=== PATIENT | female | born 1930 | race Caucasian/White ===

== ENCOUNTER 2016-10-03 21:16 | Observation (INO) ==
--- NOTE | 2016-10-03 21:27 | Emergency Department Note ---
Disposition Clinical Impression: Elevated CK Hypothermia Qualifiers: Encounter type: initial encounter Qualified Code(s): T68.XXXA - Hypothermia, initial encounter Hydronephrosis Qualifiers: Hydronephrosis type: unspecified Qualified Code(s): N13.30 - Unspecified hydronephrosis Disposition: Admitted As Inpatient Condition: Good Time of Disposition: 00:16 General Adult HPI - General Chief complaint: ED General Medical Stated complaint: Hypothermia Source: patient Mode of arrival: ambulatory Limitations: no limitations Nursing Notes Reviewed: Yes Vital Signs Reviewed: Yes - History of Present Illness HPI Narrative: 86-year-old female presents by EMS after she slipped and fell into a moist robinson bed without any standing water. She states that she was throwing logs and slipped and fell down into the robinson bed. She was there for approximately 8 hours prior to extrication. She denies any head injury, loss of consciousness , anticoagulant use. She denies any back or neck pain, chest pain or shortness of breath, abdominal pain, or extremity pain or injury. He states is simply she was not strong enough and the ground was not steady enough to get her out of the robinson bed. - Related Data Home Medications Medication Instructions Recorded Confirmed Aspirin Enteric Coated [Aspirin EC] 81 mg PO QAM 01/02/15 08/25/16 Calcium Carbonate [Calcium] 500 mg PO BID 01/02/15 08/25/16 Cinnamon Bark [Cinnamon] 500 mg PO BID 01/02/15 08/25/16 Enalapril Maleate [Vasotec] 5 mg PO DAILY 01/02/15 08/25/16 Lovastatin 40 mg PO QPM 01/02/15 08/25/16 Multivitamin [Multivitamins] 1 cap PO QAM 01/02/15 08/25/16 [place]-3/Dha/Epa/Fish Oil [Cvs Fish 1 each PO BID 01/02/15 08/25/16 Oil 1,000 mg Softgel] Cetirizine HCl [Zyrtec] 10 mg PO QAM 04/05/15 08/25/16 Donepezil [Aricept] 5 mg PO HS 04/05/15 08/25/16 Previous Rx's Medication Instructions Recorded Acetaminophen [Tylenol] 500 mg PO Q6HR PRN #20 tablet 04/02/15 Allergies Allergy/AdvReac Type Severity Reaction Status Date / Time Sulfa (Sulfonamide Allergy Unknown unknown Verified 10/03/16 21:38 Antibiotics) All systems ED: reviewed and negative except as stated. Past Medical History - Past Medical History Attestation: Yes The following information was validated with the patient. Source: patient Medical history: Reports: cancer, diabetes, hyperlipidemia, hypertension Surgical history: Reports: knee replacement, other Psychiatric history: Reports: depression LEASE OUT WORKER history: Reports: no LEASE OUT WORKER history - Social History Smoking Status: Never smoker Smokeless Tobacco Status: No Alcohol use: Reports: none Drug use: Reports: none Physical Exam - Head Head exam: atraumatic, normocephalic, normal inspection - Eye Eye exam: Present: normal appearance, PERRL, EOMI - ENT ENT exam: normal exam, normal oropharynx, mucous membranes moist - Neck Neck exam: Present: normal inspection, full ROM, trachea midline - Chest Chest inspection: Present: normal inspection, symmetric chest wall rise - Respiratory Respiratory exam: Clear to auscultation bilaterally without wheezes rales or rhonchi Cardiovascular Cardiovascular exam: Present: regular rate, normal rhythm, normal heart sounds - Abdominal Exam Abdominal exam: Present: soft, Non-Tender. Absent: tenderness, distention, guarding, rebound, rigidity - Extremities Exam Extremities exam: Present: normal inspection, full ROM - Expanded Lower Extremity Exam Hip/Pelvis exam: Present: normal inspection, full ROM - Back Exam Back exam: Present: normal inspection, full ROM. Absent: tenderness, CVA tenderness (R), CVA tenderness (L) - Neurological Exam Neurological exam: Present: alert, oriented X3, CN II-XII intact - Psychiatric Psychiatric exam: Present: normal affect, normal mood - Skin Skin exam: Present: warm, dry, intact, normal color Course - Reevaluation(s) Reevaluation #1: Plan close were removed, the patient was dried, and a bear hugger and warm blankets were placed. Rectal temperature was 95.4. Vital stable. Blood sugar 187. Time: 21:27 Reevaluation #2: CT scans were negative for acute fracture. There is mild right-sided hydronephrosis of unclear etiology. Patient has no symptoms associated with this. Dr. Moe was made aware of this. He will follow the urinalysis and order any further imaging as needed. Time: 00:15 Vital Signs Temperature 95.4 F L 05/07/17 21:19 Pulse Rate 69 10/03/16 21:19 Respiratory Rate 20 10/03/16 21:19 Blood Pressure 154/54 10/03/16 21:19 O2 Sat by Pulse Oximetry 95 10/03/16 21:19 Temperature 98.2 F 10/04/16 01:38 Pulse Rate 81 10/04/16 01:38 Respiratory Rate 16 10/04/16 01:38 Blood Pressure 110/61 10/04/16 01:38 O2 Sat by Pulse Oximetry 94 10/04/16 01:38 Oxygen Delivery Oxygen Delivery Room Air Medical Decision Making - Lab Data Result diagrams: 10/04/16 04:10 10/04/16 04:10 Lab Results 10/03/16 10/03/16 10/03/16 Range/Units 21:22 21:41 21:41 WBC 16.6 H (4.3-11.1) K/mcL RBC 4.57 (3.82-4.97) M/mcL Hgb 13.3 (11.5-15.4) g/dL Hct 39.0 (35.3-44.9) % MCV 85.3 (83.0-100.0) fL MCH 29.1 (28.0-33.3) pg MCHC 34.1 (31.6-35.5) g/dL RDW 13.2 (11.5-14.5) % Plt Count 183 (140-400) K/mcL MPV 10.5 (9.4-12.4) fL Immature Gran % 0.5 (0-4) % Seg Neutrophils % 86.4 % Lymphocytes % 7.1 % Monocytes % 5.4 % Eosinophils % 0.4 % Basophils % 0.2 % Neutrophils # 14.4 H (1.6-8.9) K/mcL Lymphocytes # 1.2 (0.6-4.6) K/mcL Monocytes # 0.9 (0.0-1.3) K/mcL Eosinophils # 0.1 (0.0-0.6) K/mcL Basophils # 0.0 (0.0-0.2) K/mcL PT 13.5 H (9.4-12.1) Seconds INR 1.2 APTT 28.0 (26.0-36.0) Seconds Sodium (136-145) mEq/L Potassium (3.5-4.5) mEq/L Chloride (98-109) mEq/L Carbon Dioxide (19-29) mEq/L BUN (7-20) mg/dL Creatinine (0.57-1.11) mg/dL Est GFR ( Amer) (> 60) Est GFR (Non-Af Amer) (> 60) BUN/Creatinine Ratio (6-26) Glucose (70-99) mg/dL POC Glucose 187 H (58-89) Calculated Osmolality (280-300) Calcium (8.6-10.8) mg/dL Total Bilirubin (0.2-1.2) mg/dL Direct Bilirubin (0.0-0.5) mg/dL Indirect Bilirubin (0.0-1.2) mg/dL AST (5-34) Units/L ALT (0-55) Units/L Alkaline Phosphatase (38-126) Units/L Creatine Kinase (29-168) Units/L Troponin I (0-0.03) ng/mL Serum Total Protein (6.0-8.3) g/dL Albumin (3.5-5.0) g/dL Globulin (2.4-3.5) g/dL Albumin/Globulin Ratio (1.1-2.2) Urine Color (Yellow) Urine Clarity (Clear) Urine pH (5.0-8.0) pH Units Ur Specific [place] (1.010-1.025) Urine Protein (Neg-Trace) mg/dL Urine Glucose (UA) (Normal) mg/dL Urine Ketones (Negative) mg/dL Urine Blood (Negative) Urine Nitrite (Negative) Urine Bilirubin (Negative) Urine Urobilinogen (Normal) mg/dL Ur Leukocyte Esterase (Negative) Urine Microscopic RBC (0-3) per hpf Urine Microscopic WBC (0-3) per hpf Ur Squamous Epith Cells (None-Few) per lpf Calcium Oxalate Crystal Amorphous Sediment (Few) Urine Bacteria (None-Few) per hpf Hyaline Casts (None-Few) per lpf Ur Culture Indicated? (NO) 10/03/16 10/03/16 10/04/16 Range/Units 21:41 21:41 00:27 WBC (4.3-11.1) K/mcL RBC (3.82-4.97) M/mcL Hgb (11.5-15.4) g/dL Hct (35.3-44.9) % MCV (83.0-100.0) fL MCH (28.0-33.3) pg MCHC (31.6-35.5) g/dL RDW (11.5-14.5) % Plt Count (140-400) K/mcL MPV (9.4-12.4) fL Immature Gran % (0-4) % Seg Neutrophils % % Lymphocytes % % Monocytes % % Eosinophils % % Basophils % % Neutrophils # (1.6-8.9) K/mcL Lymphocytes # (0.6-4.6) K/mcL Monocytes # (0.0-1.3) K/mcL Eosinophils # (0.0-0.6) K/mcL Basophils # (0.0-0.2) K/mcL PT (9.4-12.1) Seconds INR APTT (26.0-36.0) Seconds Sodium 142 (136-145) mEq/L Potassium 4.5 (3.5-4.5) mEq/L Chloride 102 (98-109) mEq/L Carbon Dioxide 28 (19-29) mEq/L BUN 31 H (7-20) mg/dL Creatinine 0.80 (0.57-1.11) mg/dL Est GFR ( Amer) > 60 (> 60) Est GFR (Non-Af Amer) > 60 (> 60) BUN/Creatinine Ratio 39 H (6-26) Glucose 170 H (70-99) mg/dL POC Glucose (58-89) Calculated Osmolality 305 H (280-300) Calcium 10.4 (8.6-10.8) mg/dL Total Bilirubin 0.7 (0.2-1.2) mg/dL Direct Bilirubin 0.3 (0.0-0.5) mg/dL Indirect Bilirubin 0.4 (0.0-1.2) mg/dL AST 31 (5-34) Units/L ALT 20 (0-55) Units/L Alkaline Phosphatase 13 L (38-126) Units/L Creatine Kinase 319 H (29-168) Units/L Troponin I 0.01 (0-0.03) ng/mL Serum Total Protein 7.6 (6.0-8.3) g/dL Albumin 4.0 (3.5-5.0) g/dL Globulin 3.6 H (2.4-3.5) g/dL Albumin/Globulin Ratio 1.1 (1.1-2.2) Urine Color Yellow (Yellow) Urine Clarity Clear (Clear) Urine pH 6.5 (5.0-8.0) pH Units Ur Specific [place] 1.021 (1.010-1.025) Urine Protein Negative (Neg-Trace) mg/dL Urine Glucose (UA) Normal (Normal) mg/dL Urine Ketones Negative (Negative) mg/dL Urine Blood Negative (Negative) Urine Nitrite Negative (Negative) Urine Bilirubin Negative (Negative) Urine Urobilinogen Normal (Normal) mg/dL Ur Leukocyte Esterase Moderate H (Negative) Urine Microscopic RBC 3-5 H (0-3) per hpf Urine Microscopic WBC 5-15 H (0-3) per hpf Ur Squamous Epith Cells Many H (None-Few) per lpf Calcium Oxalate Crystal Present Amorphous Sediment Few (Few) Urine Bacteria Few (None-Few) per hpf Hyaline Casts None Seen (None-Few) per lpf Ur Culture Indicated? YES A (NO) - EKG Data EKG #1 EKG attestation: Yes I reviewed and interpreted this EKG. EKG results narrative: EKG limited by motion artifact, but shows sinus rhythm at 69. No definite ST elevation or depression. No further interpretation available due to motion artifact. EKG available. Attestation Statement - Attestation Attestation: I, Yousif Epstein, examined this patient and my medical decision-making was reviewed with the DIETETIC AIDE/PA/Advanced Practice Nurse/Resident Physician. I agree with the documented findings, disposition and treatment plan as described except to the extent set forth below. 86-year-old female brought in by EMS after found near a robinson for several hours. Patient states she was throwing logs into the robinson when she fell down the embankment. Patient was unable to skilled embankment to get out. She denies hitting her head up having loss of consciousness however she does have an abrasion to her left forehead. Patient states she was near the water for closest 6-7 hours. Bystanders found her, called EMS, helped her to the level ground. Patient had an initial rectal temperature of 95.4 degrees Fahrenheit. Patient denies chest pain, nausea, vomiting, diarrhea. Chest x-ray, CT of the head and cervical spine are negative for acute fracture or intracranial hemorrhage. Patient placed on lan hugger with improvement of temperature to 97 degrees prior to admission to the hospital. Patient has elevation of her CPK which we trended while in the hospital.
[2016-10-03 21:50] LABS: Basophils % 0.2 %; Eosinophils # 0.1 K/mcL (0.0-0.6); Eosinophils % 0.4 %; Hemoglobin 13.3 g/dL (11.5-15.4); Immature Granulocytes % 0.5 % (0-4); Lymphocytes # 1.2 K/mcL (0.6-4.6); Lymphocytes % 7.1 %; Mean Corpuscular HGB Conc 34.1 g/dL (31.6-35.5); Mean Corpuscular Hemoglobin 29.1 pg (28.0-33.3); Mean Corpuscular Volume 85.3 fL (83.0-100.0); Mean Platelet Volume 10.5 fL (9.4-12.4); Monocytes # 0.9 K/mcL (0.0-1.3); Monocytes % 5.4 %; Neutrophils # 14.4 K/mcL (1.6-8.9); Platelet Count 183 K/mcL (140-400); Red Blood Count 4.57 M/mcL (3.82-4.97); Red Cell Distribution Width 13.2 % (11.5-14.5); Segmented Neutrophils % 86.4 %
[2016-10-03 21:54] LABS: INR 1.2; Prothrombin Time 13.5 Seconds (9.4-12.1)
[2016-10-03 22:07] LABS: Alanine Aminotransferase 20 Units/L (0-55); Albumin/Globulin Ratio 1.1 (1.1-2.2); Alkaline Phosphatase 13 Units/L (38-126); Aspartate Amino Transferase 31 Units/L (5-34); BUN/Creatinine Ratio 39 (6-26); Bilirubin,Direct 0.3 mg/dL (0.0-0.5); Bilirubin,Indirect 0.4 mg/dL (0.0-1.2); Bilirubin,Total 0.7 mg/dL (0.2-1.2); Blood Urea Nitrogen 31 mg/dL (7-20); Calcium 10.4 mg/dL (8.6-10.8); Carbon Dioxide 28 mEq/L (19-29); Chloride 102 mEq/L (98-109); Creatine Kinase 319 Units/L (29-168); Globulin 3.6 g/dL (2.4-3.5); Glucose 170 mg/dL (70-99); Osmolality,Calculated 305 (280-300); Potassium 4.5 mEq/L (3.5-4.5); Sodium 142 mEq/L (136-145); Total Protein 7.6 g/dL (6.0-8.3); eGFR For African Americans > 60 (> 60); eGFR For Non-African Americans > 60 (> 60)
[2016-10-03] MEDS ORDERED: *HR* HYDROmorphone (PF) 1 MG/ML SYRINGE IVP ONE (23:25)
[2016-10-03] MEDS ORDERED: Ondansetron 4 MG/2 ML VIAL IVP STA (23:26)
[2016-10-04 00:34] LABS: Bilirubin,Urine Negative (Negative); Blood,Urine Negative (Negative); Clarity,Urine Clear (Clear); Color,Urine Yellow (Yellow); Glucose,Urine (UA) Normal (Normal); Ketones,Urine Negative (Negative); Leukocyte Esterase,Urine Moderate (Negative); Nitrite,Urine Negative (Negative); PH,Urine 6.5 pH Units (5.0-8.0); Protein,Urine Negative (Neg-Trace); Specific Gravity,Urine 1.021 (1.010-1.025); Urobilinogen,Urine Normal (Normal)
[2016-10-04 00:37] LABS: Hyaline Casts,Urine None Seen per lpf (None-Few); Squamous Epithelial Cell,Urine Many per lpf (None-Few)
[2016-10-04 00:46] LABS: Amorphous Sediment,Urine Few (Few); Bacteria,Urine Few per hpf (None-Few); Calcium Oxalate Crystals,Urine Present
[2016-10-04] MEDS ORDERED: Acetaminophen 325 MG TABLET PO PRN (00:54)
--- NOTE | 2016-10-04 01:10 | Internal Med History&Physical ---
Date of Encounter: 10/04/16 Time of Encounter: 00:10 Assessment and Plan (1) Hypothermia Current visit: Yes Status: Acute Is due to cold environment exposure. Temperature recovered to 98 after Bear Hug use in the emergency room. We will continue closely monitor temperature and other vital signs Qualifiers: Encounter type: initial encounter Qualified Code(s): T68.XXXA - Hypothermia , initial encounter (2) Diabetes mellitus Current visit: No Status: Chronic Patient is on no medication at home. Will continue diet control. Qualifiers: Diabetes mellitus type: type 2 Diabetes mellitus complication status: without complication Diabetes mellitus alf insulin use: without rat exterminator use Qualified Code(s): E11.9 - Type 2 diabetes mellitus without complications (3) Elevated CK Current visit: Yes Status: Acute Mild elevated CK. Will follow-up CK level. Pt had 2 L IV fluid in the emergency room, will Continue IV fluid at 80 mL /hr. (4) Hydronephrosis Current visit: Yes Status: Acute Incidentally found hydronephrosis in CAT scan. We will consult urology. Qualifiers: Hydronephrosis type: unspecified Qualified Code(s): N13.30 - Unspecified hydronephrosis (5) Hypertension Current visit: Yes Status: Acute BP is stable, continue home medications. Qualifiers: Hypertension type: essential hypertension Qualified Code(s): I10 - Essential (primary) hypertension (6) Leukocytosis Current visit: Yes Status: Acute Probably reactive, will follow-up CBC. Qualifiers: Leukocytosis type: unspecified Qualified Code(s): D72.829 - Elevated white blood cell count, unspecified (7) Fall Current visit: Yes Status: Acute Mechanical fall, we will consult PT and OT. Qualifiers: Encounter type: initial encounter Qualified Code(s): W19.XXXA - Unspecified fall, initial encounter (8) DVT prophylaxis Current visit: Yes Status: Acute EPCD. No anticoagulation because patient has hypothermia Internal Medicine - H&P: HPI Chief complaint: Hypothermia Admitted From: Home Plans for Post Hospital Care: Home History of present illness: Ms. Mcdonald is a 86 year old female sent to ER by EMS because she was fall in [place] and stayed there for 8 hours. Patient was found low temperature when present to ER, temperature is 95 F. patient said she went to the [place] to pick sticks, and fell in [place]. She tried to get up but the soil is too soft she cannot get. She denies head injury. She is conscious over the 8 hours. When I saw her, she is awake alert oriented 3, denies headache, muscle pain, cough, or shortness of breath. Her lumbar spine CT incidentally shows right-sided hydronephrosis. Patient is admitted for further observation and monitoring. I have discussed CODE STATUS with this patient. She is full code. Past Med Surg Social Fam HX - Past Medical History Medical history: cancer, diabetes, hyperlipidemia, hypertension Psychiatric history: depression - Past Surgical History Surgical History: knee replacement, other - Social History Smoking Status: Never smoker Smokeless Tobacco Status: No Alcohol use: none Drug use: none Internal Medicine - H&P: Meds Aspirin Enteric Coated [Aspirin EC] 81 mg PO QAM 01/02/15 [History] Calcium Carbonate [Calcium] 500 mg PO BID 01/02/15 [History] Cinnamon Bark [Cinnamon] 500 mg PO BID 01/02/15 [History] Enalapril Maleate [Vasotec] 5 mg PO DAILY 01/02/15 [History] Lovastatin 40 mg PO QPM 01/02/15 [History] Multivitamin [Multivitamins] 1 cap PO QAM 01/02/15 [History] [place]-3/Dha/Epa/Fish Oil [Cvs Fish Oil 1,000 mg Softgel] 1 each PO BID 01/02/15 [History] Acetaminophen [Tylenol] 500 mg PO Q6HR PRN #20 tablet 04/02/15 [Rx] Cetirizine HCl [Zyrtec] 10 mg PO QAM 04/05/15 [History] Donepezil [Aricept] 5 mg PO HS 04/05/15 [History] Allergies Sulfa (Sulfonamide Antibiotics) Allergy (Unknown, Verified 10/03/16 21:38) unknown All Systems PM: A 10-system review of systems was performed and is negative for pertinent findings except as documented above in the HPI. - Constitutional Constitutional: no chills, no fever(s), no night sweats - EENT Eyes: no change in vision, no discharge, no pain, no photophobia Ears: no ear discharge, no ear pain, no tinnitus Nose, mouth and throat: no dysphagia, no nasal discharge, no neck pain, no sore throat - Cardiovascular Cardiovascular ROS IM: no chest pain, no diaphoresis, no dyspnea, no lightheadedness, no palpitations, no syncope - Respiratory Respiratory: no cough, no dyspnea, no wheezing, no excessive phlegm production - Gastrointestinal Gastrointestinal: no abdominal pain, no diarrhea, no hematemesis, no hematochezia, no melena, no nausea, no vomiting - Genitourinary Genitourinary: no change in urinary stream, no dysuria, no flank pain, no hematuria - Musculoskeletal Musculoskeletal ROS IM: no numbness, no tingling - Integumentary Integumentary IM: no rash, no unusual bruising - Neurological Neurological ROS: no confusion, no convulsions, no focal weakness, no numbness, no tingling, no tremor(s) - Hematologic/Lymphatic Hematologic/Lymphatic: no easy bruising - Constitutional Vitals: Temp Pulse Resp BP Pulse Ox 97.0 F L 81 20 115/82 95 10/03/16 22:45 10/03/16 23:45 10/03/16 23:45 10/03/16 23:45 10/03/16 23:45 General appearance: Present: A&O X 3, no acute distress, answers questions appropriately - Head Head exam: Present: atraumatic, normocephalic - Eye Eye exam: Present: PERRL, conjuntiva pink, sclera anicteric Pupils: Present: PERRL - Neck Neck exam general surgery: Present: supple, trachea midline. Absent: lymphadenopathy - Respiratory Respiratory exam: Present: CTAB. Absent: accessory muscle use, rales, rhonchi, wheezes - Cardiovascular Cardiovascular exam: Present: RRR, +S1, +S2. Absent: diastolic murmur, gallop, rubs, systolic murmur - GI/Abdominal GI/Abdominal exam: Present: normal bowel sounds, soft, no peritoneal signs. Absent: distended, tenderness - Extremities Exam Extremities exam: Present: warm, radial pulses palpable and symetrical. Absent : calf tenderness, cyanotic, pedal edema - Neurological Exam Neurological exam: Present: CN II-XII intact, oriented X3, no focal deficits. Absent: pronater drift, facial droop, speech deficit - Skin Skin exam: Present: dry, intact Internal Med - H&P Results - Labs CBC & Chem 7: 10/03/16 21:41 10/03/16 21:41
[2016-10-04] MEDS: 0.9 % Sodium Chloride 1,000 ML IVC SCH ×2 (02:21→17:34)
[2016-10-04 04:40] LABS: Basophils % 0.3 %; Eosinophils % 0.1 %; Hematocrit 31.8 % (35.3-44.9); Immature Granulocytes % 0.4 % (0-4); Lymphocytes # 1.5 K/mcL (0.6-4.6); Lymphocytes % 13.3 %; Mean Corpuscular HGB Conc 33.3 g/dL (31.6-35.5); Mean Corpuscular Hemoglobin 28.4 pg (28.0-33.3); Mean Corpuscular Volume 85.3 fL (83.0-100.0); Mean Platelet Volume 10.6 fL (9.4-12.4); Neutrophils # 8.8 K/mcL (1.6-8.9); Platelet Count 141 K/mcL (140-400); Red Blood Count 3.73 M/mcL (3.82-4.97); Red Cell Distribution Width 13.4 % (11.5-14.5); Segmented Neutrophils % 76.9 %
[2016-10-04 04:42] LABS: INR 1.3; Prothrombin Time 14.5 Seconds (9.4-12.1)
[2016-10-04 04:49] LABS: Hemoglobin 10.6 g/dL (11.5-15.4)
[2016-10-04 04:50] LABS: BUN/Creatinine Ratio 35 (6-26); Blood Urea Nitrogen 23 mg/dL (7-20); Carbon Dioxide 26 mEq/L (19-29); Chloride 110 mEq/L (98-109); Glucose 111 mg/dL (70-99); Osmolality,Calculated 298 (280-300); Sodium 142 mEq/L (136-145); eGFR For African Americans > 60 (> 60); eGFR For Non-African Americans > 60 (> 60)
[2016-10-04 04:51] LABS: Calcium 8.6 mg/dL (8.6-10.8); Potassium 3.4 mEq/L (3.5-4.5)
[2016-10-04] MEDS: Aspirin Enteric Coated 81 MG Tablet PO SCH (08:27)
--- NOTE | 2016-10-04 11:05 | Urology - Consult Note ---
Date of Encounter: 10/04/16 Time of Encounter: 11:00 - Assessment and Plan (1) Hydronephrosis Current Visit: Yes Status: Acute Assessment and plan: I reviewed the noncontrast CT scan and agree there is some hydronephrosis without significant hydroureter. This appeared to be present in 4 years ago during a PET ct. Renal function is preserved and the patient has no flank pain. may be a subclinical UPJO. ok to observe and follow as an outpatient. if still having hematuria on UA may consider CT urogram. Qualifiers: Hydronephrosis type: unspecified Qualified Code(s): N13.30 - Unspecified hydronephrosis (2) Urge incontinence Current Visit: Yes Status: Acute Assessment and plan: pt has been treated with an anticholinergic medication as an outpt. will reassess when she returns. OK to make followup 4-8 weeks. Urology CN:[email or web address] Consult date: 10/04/16 Reason for consult Urology: Hydronephrosis History of present illness: inpt urology consult. patient admitted for cold exposure. ct scan (lumbar) incidentally found hydronephrosis. UA with +LE, few bacteria. culture pending. pt reports no flank pain. ct abd/pelvis complete today. Past Med Surg Social Fam HX - Past Medical History Medical history: cancer, diabetes, hyperlipidemia, hypertension Psychiatric history: depression - Past Surgical History Surgical History: knee replacement, other - Social History Smoking Status: Never smoker Smokeless Tobacco Status: No Alcohol use: none Drug use: none - Family History Mother Living Status: Hx Family Cancer: Yes Father Living Status: Medications and Allergies Aspirin Enteric Coated [Aspirin EC] 81 mg PO QAM 01/02/15 [History] Calcium Carbonate [Calcium] 500 mg PO BID 01/02/15 [History] Cinnamon Bark [Cinnamon] 500 mg PO BID 01/02/15 [History] Enalapril Maleate [Vasotec] 5 mg PO DAILY 01/02/15 [History] Lovastatin 40 mg PO QPM 01/02/15 [History] Multivitamin [Multivitamins] 1 cap PO QAM 01/02/15 [History] [place]-3/Dha/Epa/Fish Oil [Cvs Fish Oil 1,000 mg Softgel] 1 each PO BID 01/02/15 [History] Acetaminophen [Tylenol] 500 mg PO Q6HR PRN #20 tablet 04/02/15 [Rx] Donepezil [Aricept] 5 mg PO HS 04/05/15 [History] Latanoprost [Xalatan] 1 drop OP QPM 10/04/16 [History] Sertraline [Zoloft] 50 mg PO DAILY 10/04/16 [History] Timolol Maleate 0.5% [Timolol Maleate 0.5%] 1 mg OP BID 10/04/16 [History] Tolterodine Tartrate [Detrol] 2 mg PO BID 10/04/16 [History] Allergies Sulfa (Sulfonamide Antibiotics) Allergy (Unknown, Verified 10/03/16 21:38) unknown Review of Systems - EENT Nose, mouth and throat: no dizziness - Cardiovascular no chest pain - Gastrointestinal no abdominal pain - Genitourinary Genitourinary: urinary frequency, urinary incontinence, urinary urgency - Musculoskeletal back pain - Integumentary no lesions - Neurological no confusion - Psychiatric no anxiety - Hematologic/Lymphatic no easy bleeding - Allergic/Immunologic no throat swelling Exam Initial Vital Signs Temp Pulse Resp BP Pulse Ox 95.4 F L 69 20 154/54 95 10/03/16 21:19 10/03/16 21:19 10/03/16 21:19 10/03/16 21:19 10/03/16 21:19 - General physical appearance Present: well developed, no distress - Eyes Present: PERRL - ENT Present: normal nares - Neck Present: no masses - Respiratory Present: normal respiratory effort - Cardiovascular Cardiovascular exam IM: RRR - Abdomen Abdomen: Present: soft - Integumentary Present: no rash - Neurologic Present: normal coordination. Absent: disoriented, confused Urology Results - Labs 10/04/16 04:10 10/04/16 04:10 Abnormal lab results WBC 11.4 K/mcL (4.3-11.1) H 10/04/16 04:10 RBC 3.73 M/mcL (3.82-4.97) L 10/04/16 04:10 Hgb 10.6 g/dL (11.5-15.4) L D 10/04/16 04:10 Hct 31.8 % (35.3-44.9) L 10/04/16 04:10 PT 14.5 Seconds (9.4-12.1) H 10/04/16 04:10 Potassium 3.4 mEq/L (3.5-4.5) L D 10/04/16 04:10 Chloride 110 mEq/L (98-109) H 10/04/16 04:10 BUN 23 mg/dL (7-20) H 10/04/16 04:10 BUN/Creatinine Ratio 35 (6-26) H 10/04/16 04:10 Glucose 111 mg/dL (70-99) H 10/04/16 04:10 POC Glucose 187 (58-89) H 10/03/16 21:22 Alkaline Phosphatase 13 Units/L (38-126) L 10/03/16 21:41 Creatine Kinase 318 Units/L (29-168) H 10/04/16 04:10 Globulin 3.6 g/dL (2.4-3.5) H 10/03/16 21:41 Ur Leukocyte Esterase Moderate (Negative) H 10/04/16 00:27 Urine Microscopic RBC 3-5 per hpf (0-3) H 10/04/16 00:27 Urine Microscopic WBC 5-15 per hpf (0-3) H 10/04/16 00:27 Ur Squamous Epith Cells Many per lpf (None-Few) H 10/04/16 00:27 Ur Culture Indicated? YES (NO) A 10/04/16 00:27 Diabetes panel 10/04/16 Range/Units 04:10 Sodium 142 (136-145) mEq/L Potassium 3.4 L D (3.5-4.5) mEq/L Chloride 110 H (98-109) mEq/L Carbon Dioxide 26 (19-29) mEq/L BUN 23 H (7-20) mg/dL Creatinine 0.65 (0.57-1.11) mg/dL Glucose 111 H (70-99) mg/dL Calcium 8.6 D (8.6-10.8) mg/dL Calcium panel 10/04/16 Range/Units 04:10 Calcium 8.6 D (8.6-10.8) mg/dL Pituitary panel 10/04/16 Range/Units 04:10 Sodium 142 (136-145) mEq/L Potassium 3.4 L D (3.5-4.5) mEq/L Chloride 110 H (98-109) mEq/L Carbon Dioxide 26 (19-29) mEq/L BUN 23 H (7-20) mg/dL Creatinine 0.65 (0.57-1.11) mg/dL Glucose 111 H (70-99) mg/dL Calcium 8.6 D (8.6-10.8) mg/dL Adrenal panel 10/04/16 Range/Units 04:10 Sodium 142 (136-145) mEq/L Potassium 3.4 L D (3.5-4.5) mEq/L Chloride 110 H (98-109) mEq/L Carbon Dioxide 26 (19-29) mEq/L BUN 23 H (7-20) mg/dL Creatinine 0.65 (0.57-1.11) mg/dL Glucose 111 H (70-99) mg/dL Calcium 8.6 D (8.6-10.8) mg/dL All other labs normal. Consult Discharge Plan - Plan Referrals: Shante Gillette MD [Primary Care Provider] -
[2016-10-04] MEDS ORDERED: Naloxone 0.4 MG/ML INJ IVP PRN (12:18)
[2016-10-04] MEDS ORDERED: Ondansetron 4 MG/2 ML VIAL IVP PRN (12:18)
[2016-10-04] MEDS ORDERED: *HR* Morphine 2 MG/ML SYRINGE IVP PRN (12:18)
[2016-10-04] MEDS: *HR* HYDROcodone/Acet 5/325 mg TABLET PO PRN ×2 (12:34→21:41)
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
[2016-10-04] MEDS ORDERED: Levofloxacin 750 MG/150 ML 750 MG/150 ML BAG IVPB SCH (14:00)
--- NOTE | 2016-10-04 17:26 | Electrocardiograph Report ---
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
[2016-10-04] MEDS: Loratadine 10 MG TABLET PO SCH (17:34)
[2016-10-05 04:38] LABS: Basophils % 0.3 %; Eosinophils # 0.2 K/mcL (0.0-0.6); Eosinophils % 2.2 %; Hematocrit 29.9 % (35.3-44.9); Hemoglobin 10.1 g/dL (11.5-15.4); Immature Granulocytes % 0.3 % (0-4); Lymphocytes # 1.5 K/mcL (0.6-4.6); Lymphocytes % 20.1 %; Mean Corpuscular HGB Conc 33.8 g/dL (31.6-35.5); Mean Corpuscular Hemoglobin 29.3 pg (28.0-33.3); Mean Corpuscular Volume 86.7 fL (83.0-100.0); Monocytes # 0.7 K/mcL (0.0-1.3); Monocytes % 9.5 %; Neutrophils # 5.2 K/mcL (1.6-8.9); Platelet Count 117 K/mcL (140-400); Red Blood Count 3.45 M/mcL (3.82-4.97); Red Cell Distribution Width 13.9 % (11.5-14.5); Segmented Neutrophils % 67.6 %
[2016-10-05 04:51] LABS: BUN/Creatinine Ratio 21 (6-26); Blood Urea Nitrogen 14 mg/dL (7-20); Calcium 8.5 mg/dL (8.6-10.8); Carbon Dioxide 27 mEq/L (19-29); Chloride 112 mEq/L (98-109); Creatine Kinase 515 Units/L (29-168); Glucose 98 mg/dL (70-99); Magnesium 1.6 mg/dL (1.6-2.6); Osmolality,Calculated 298 (280-300); Potassium 3.3 mEq/L (3.5-4.5); Sodium 144 mEq/L (136-145); eGFR For African Americans > 60 (> 60); eGFR For Non-African Americans > 60 (> 60)
[2016-10-05] MEDS: 0.9 % Sodium Chloride 1,000 ML IVC SCH (05:57)
[2016-10-05] MEDS: *HR* HYDROcodone/Acet 5/325 mg TABLET PO PRN (06:16)
[2016-10-05] MEDS: Loratadine 10 MG TABLET PO SCH (07:59)
[2016-10-05] MEDS: Aspirin Enteric Coated 81 MG Tablet PO SCH (08:00)
--- NOTE | 2016-10-05 09:57 | Internal Med Progress Note ---
Date of Encounter: 10/05/16 Time of Encounter: 09:45 - Subjective Interval history: patient wants to go home. no chest pain. no shortness of breath. - Constitutional Vitals: Temp Pulse Resp BP Pulse Ox 97.7 F 61 15 93/57 96 10/05/16 07:48 10/05/16 07:48 10/05/16 07:48 10/05/16 07:48 10/05/16 07:48 General appearance: Present: cooperative, A&O X 3, pleasant, no acute distress, answers questions appropriately - Respiratory Respiratory exam: Present: CTAB - Cardiovascular Cardiovascular exam: Present: RRR - GI/Abdominal GI/Abdominal exam: Present: normal bowel sounds, soft. Absent: distended, tenderness - Extremities Exam Extremities exam: Absent: pedal edema - Neurological Exam Neurological exam: Present: alert, no focal deficits, strengths equal and symetr throughout. Absent: facial droop, speech deficit - Skin Skin exam: Absent: rash Internal Medicine: Result - Labs CBC & Chem 7: 10/05/16 04:13 10/05/16 04:13 Labs: Short CBC 10/05/16 Range/Units 04:13 WBC 7.7 (4.3-11.1) K/mcL Hgb 10.1 L (11.5-15.4) g/dL Hct 29.9 L (35.3-44.9) % Plt Count 117 L (140-400) K/mcL Neutrophils # 5.2 (1.6-8.9) K/mcL BMP 10/05/16 04:13 Sodium 144 Potassium 3.3 L Chloride 112 H Carbon Dioxide 27 BUN 14 Creatinine 0.67 Glucose 98 Calcium 8.5 L - ABG Interpretation ABG results: PT/INR, D-dimer PT 14.5 Seconds (9.4-12.1) H 10/04/16 04:10 - Impressions Impressions Abdomen/Pelvis CT 10/04/16 10:30 IMPRESSION: Heterogeneous consolidation within the inferior lingula, suggestive of pneumonitis. Follow-up to resolution is recommended. Trace bilateral pleural effusions. Moderate right hydronephrosis and mild left renal pelviectasis. No evidence of obstructing calculus. Nonobstructing right intrarenal calculi. Cholelithiasis. D/ / Escobar Thorpe MD / Escobar Thorpe MD Interpreting Provider: Escobar Thorpe MD Consult Discharge Plan - Plan Referrals: Shante Gillette MD [Primary Care Provider] -
[2016-10-05 11:55] VITALS: BP 123/69
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
[2016-10-05] MEDS ORDERED: Magnesium Oxide 400 MG TABLET PO ONE (17:12)
[2016-10-05] MEDS ORDERED: levoFLOXacin 500 MG TABLET PO SCH (17:15)
--- NOTE | 2016-10-05 17:23 | Physician Discharge Referral ---
Home Health/Hosp Referral Info Transfer to: Home Health Attending Provider: salena Provider in Charge Post Discharge: PCP - Respiratory Orders Smoking Cessation: Smoking cessation has been advised. For more information, call the [place] Tobacco Quit Line at 3-796-MCQU-NOW. - Diet/Nutrition Diet/Nutrition Orders: No Added Salt (FREDDY), Cardiac, No Concentrated Sweets - Activity Activity Orders: Ambulate, Walker - Services Needed Following services are medically necessary services: Physical Therapy, Occupational Therapy Other Treatments: CBC in 1 week. - Transfer Medications Prescriptions: Cefdinir [Omnicef] 300 mg PO BID #6 capsule HYDROcodone/Acet 5/325 mg [[place] 5-325 mg] 1 tab PO BID PRN #10 tablet PRN Reason: Moderate Pain Home Medications: Aspirin Enteric Coated [Aspirin EC] 81 mg PO QAM 01/02/15 [History] Calcium Carbonate [Calcium] 500 mg PO BID 01/02/15 [History] Lovastatin 40 mg PO QPM 01/02/15 [History] Multivitamin [Multivitamins] 1 cap PO QAM 01/02/15 [History] [place]-3/Dha/Epa/Fish Oil [[facility]vs Fish Oil 1,000 mg Softgel] 1 each PO BID 01/02/15 [History] Acetaminophen [Tylenol] 500 mg PO Q6HR PRN #20 tablet 04/02/15 [Rx] Donepezil [Aricept] 5 mg PO HS 04/05/15 [History] Latanoprost [Xalatan] 1 drop OP QPM 10/04/16 [History] Sertraline [Zoloft] 50 mg PO DAILY 10/04/16 [History] Timolol Maleate 0.5% 1 mg OP BID 10/04/16 [History] Tolterodine Tartrate [Detrol] 2 mg PO BID 10/04/16 [History] Cefdinir [Omnicef] 300 mg PO BID #6 capsule 10/05/16 [Rx] HYDROcodone/Acet 5/325 mg [[place] 5-325 mg] 1 tab PO BID PRN #10 tablet 10/05/16 [Rx] Allergies/Adverse Reactions: Allergies Sulfa (Sulfonamide Antibiotics) Allergy (Unknown, Verified 10/03/16 21:38) unknown Certification: Further, I certify that my clinical findings support that this patient is homebound (i.e. absences from home require considerable and taxing effort and are for medical reasons or yarsani services or infrequently or short duration when for other reasons) because: Homebound Reason: Patient requires assistance of a person or device to safely leave home, Leaving home requires considerable and taxing effort due to condition Attestation: My signature below is to certify that this patient is under my care and that I, or nurse practitioner, or a physician's financial services assistant working with me, has a face-to -face encounter with this patient.
== END 2016-10-05 18:17 | disposition home or self-care (01) ==
LOC: EMEROO 21:16 → 3BNU 21:16 → SUATTDRO 10-04 00:32 → 3BNU 10-04 01:28
PROVIDERS: ADMIT Internal Medicine; ATTEND Internal Medicine

== ENCOUNTER 2017-09-17 04:36 | Observation (INO) ==
--- NOTE | 2017-09-17 04:52 | Emergency Department Note ---
Disposition Clinical Impression: Confusion, Sacral pain Fall Qualifiers: Encounter type: initial encounter Qualified Code(s): W19.XXXA - Unspecified fall, initial encounter Contusion of head Qualifiers: Encounter type: initial encounter Contusion of head detail: scalp Qualified Code(s): S00.03XA - Contusion of scalp, initial encounter Headache Qualifiers: Headache type: unspecified Headache chronicity pattern: unspecified pattern Intractability: not intractable Qualified Code(s): R51 - Headache Elbow pain Qualifiers: Laterality: left Qualified Code(s): M25.522 - Pain in left elbow Disposition: Still a Patient Condition: Good Referrals: Shante Gillette MD [Primary Care Provider] - Forms: ED Satisfaction Letter Time of Disposition: 06:42 Head Injury HPI - General Chief complaint: ED Head Injury Stated complaint: fall Time Seen by Provider: 09/17/17 04:45 Source: patient, family, EMS Mode of arrival: EMS Limitations: altered mental status Nursing Notes Reviewed: Yes Vital Signs Reviewed: Yes - History of Present Illness HPI Narrative: Patient is an 87-year-old female with past medical history of hyperlipidemia, hypertension, dementia, diabetes. She presents today via EMS due to multiple falls. He states that the patient fell earlier yesterday, refused transport to the hospital at that time. During that fall, she hit her head. Denied any numbness, tingling, weakness, headache, loss of consciousness. She told us that she was helping her son with yardwork, went to throw sticks out of the yard and slipped and fell and hit her head. Just prior to arrival, patient had another fall. She said that she dropped the remote in front of her chair and she leaned forward, fell out of her chair and hit her head again. She currently complains of headache, left elbow pain, sacral pain. She denies any nausea, vomiting, fevers, abdominal pain, neck pain, numbness, tingling, weakness. Denies any preceding symptoms prior to falls. - Related Data Home Medications Medication Instructions Recorded Confirmed Aspirin Enteric Coated [Aspirin EC] 81 mg PO QAM 01/02/15 10/04/16 Calcium Carbonate [Calcium] 500 mg PO BID 01/02/15 10/04/16 Lovastatin 40 mg PO QPM 01/02/15 10/04/16 Multivitamin [Multivitamins] 1 cap PO QAM 01/02/15 10/04/16 [place]-3/Dha/Epa/Fish Oil [Cvs Fish 1 each PO BID 01/02/15 10/04/16 Oil 1,000 mg Softgel] Donepezil [Aricept] 5 mg PO HS 04/05/15 10/04/16 Latanoprost [Xalatan] 1 drop OP QPM 10/04/16 10/04/16 Sertraline [Zoloft] 50 mg PO DAILY 10/04/16 10/04/16 Timolol Maleate 0.5% 1 mg OP BID 10/04/16 10/04/16 Tolterodine Tartrate [Detrol] 2 mg PO BID 10/04/16 10/04/16 Previous Rx's Medication Instructions Recorded Acetaminophen [Tylenol] 500 mg PO Q6HR PRN #20 tablet 04/02/15 Cefdinir [Omnicef] 300 mg PO BID #6 capsule 10/05/16 HYDROcodone/Acet 5/325 mg [[place] 1 tab PO BID PRN #10 tablet 10/05/16 5-325 mg] Allergies/Adverse reactions: Allergies Allergy/AdvReac Type Severity Reaction Status Date / Time Sulfa (Sulfonamide Allergy Unknown unknown Verified 07/19/17 10:23 Antibiotics) All systems ED: reviewed and negative except as stated. Constitutional: Denies: fever Cardiovascular: Denies: chest pain Respiratory: Denies: dyspnea Gastrointestinal: Denies: abdominal pain, nausea, vomiting, diarrhea Musculoskeletal: Reports: arthralgia, myalgia Integumentary: Reports: other Neurological: Reports: headache. Denies: weakness, numbness, paresthesias Past Medical History - Past Medical History Attestation: Yes The following information was validated with the patient. Source: patient Medical history: Reports: cancer, diabetes, hyperlipidemia, hypertension Surgical history: Reports: knee replacement, other Psychiatric history: Reports: depression [employer]IOR IN[employer]CHIT[employer] history: Reports: no [employer]ENIOR [employer]STRU[employer]CHIT[employer] history - Social History Smoking Status: Never smoker Smokeless Tobacco Status: No Alcohol use: Reports: none Drug use: Reports: none Physical Exam - General Limitations: no limitations General appearance: alert - Head Head exam: other (right frontoparietal edema and bruising approx 3cm by 3cm) - Eye Eye exam: Present: normal appearance, PERRL, EOMI - ENT ENT exam: normal exam, normal oropharynx, mucous membranes moist - Neck Neck exam: Present: normal inspection, full ROM, trachea midline. Absent: tenderness - Chest Chest inspection: Present: normal inspection, symmetric chest wall rise - Respiratory Respiratory exam: Present: normal lung sounds bilaterally - Cardiovascular Cardiovascular exam: Present: regular rate, normal rhythm, normal heart sounds - Abdominal Exam Abdominal exam: Present: soft, Non-Tender. Absent: tenderness, distention, guarding, rebound, rigidity - Extremities Exam Extremities exam: Present: full ROM, tenderness (mild tenderness of left elbow joint but full ROM of joint and no palpable deformity). Absent: pedal edema - Neurological Exam Neurological exam: Present: alert, other (oriented to person and place but not time). Absent: motor sensory deficit - Expanded Neurological Exam Coma Scale Eye Opening: Spontaneous Coma Scale Motor Response: Obeys Commands Coma Scale Verbal Response: Confused Coma Scale Total: 14 - Psychiatric Psychiatric exam: Present: normal affect, normal mood - Skin Skin exam: Present: warm, dry, intact, normal color Course Course Narrative: Mildly hypertensive. Otherwise, the rest of the vitals were within normal limits. Physical exam shows contusion of right frontoparietal scalp, left elbow pain. Patient also complaining of sacrum pain. Will obtain CT head, cervical spine, x-ray of left elbow, x-ray lumbar spine and sacrum. We will also perform altered mental status workup physician is usually alert and oriented 3. Will obtain basic blood work, troponin, CXR, EKG. EKG showed normal sinus rhythm with no acute ST changes. 06:33 no major abnormalities on blood work. Troponin negative. No major electrolyte abnormality. Urinalysis negative. Currently awaiting imaging. WIll sign out to day team to Dr. Epstein and Dr. Zhu for further care and dispo. Vital Signs Temperature 98.2 F 09/17/17 04:38 Pulse Rate 73 09/17/17 04:38 Respiratory Rate 24 09/17/17 04:38 Blood Pressure 142/75 09/17/17 04:38 O2 Sat by Pulse Oximetry 97 09/17/17 04:38 Temperature 98.2 F 09/17/17 04:38 Pulse Rate 67 09/17/17 06:35 Respiratory Rate 18 09/17/17 06:35 Blood Pressure 125/62 09/17/17 06:35 O2 Sat by Pulse Oximetry 97 04/21/18 06:35 Oxygen Delivery Oxygen Delivery Room Air Head Injury - MDM Narrative Medical decision making narrative: Mildly hypertensive. Otherwise, the rest of the vitals were within normal limits. Physical exam shows contusion of right frontoparietal scalp, left elbow pain. Patient also complaining of sacrum pain. Will obtain CT head, cervical spine, x-ray of left elbow, x-ray lumbar spine and sacrum. We will also perform altered mental status workup physician is usually alert and oriented 3. Will obtain basic blood work, troponin, CXR, EKG. EKG showed normal sinus rhythm with no acute ST changes. 06:33 no major abnormalities on blood work. Troponin negative. No major electrolyte abnormality. Urinalysis negative. Currently awaiting imaging. WIll sign out to day team to Dr. Epstein and Dr. Zhu for further care and dispo. - Medical Records Medical records reviewed: Yes I reviewed the patient's medical records. - Lab Data Lab results reviewed: Yes I reviewed the patient's lab results. Result diagrams: 09/17/17 04:48 09/17/17 04:48 Lab Results 09/17/17 09/17/17 09/17/17 Range/Units 04:45 04:48 04:48 WBC 7.1 (4.3-11.1) K/mcL RBC 4.17 (3.82-4.97) M/mcL Hgb 11.9 (11.5-15.4) g/dL Hct 35.1 L (35.3-44.9) % MCV 84.2 (83.0-100.0) fL MCH 28.5 (28.0-33.3) pg MCHC 33.9 (31.6-35.5) g/dL RDW 12.9 (11.5-14.5) % Plt Count 221 (140-400) K/mcL MPV 10.6 (9.4-12.4) fL Immature Gran % 0.4 (0-4) % Seg Neutrophils % 65.9 % Lymphocytes % 19.3 % Monocytes % 11.5 % Eosinophils % 2.3 % Basophils % 0.6 % Neutrophils # 4.7 (1.6-8.9) K/mcL Lymphocytes # 1.4 (0.6-4.6) K/mcL Monocytes # 0.8 (0.0-1.3) K/mcL Eosinophils # 0.2 (0.0-0.6) K/mcL Basophils # 0.0 (0.0-0.2) K/mcL PT 14.3 H (9.4-12.1) Seconds INR 1.3 APTT 27.5 (26.0-36.0) Seconds Sodium (136-145) mEq/L Potassium (3.5-5.1) mEq/L Chloride (98-107) mEq/L Carbon Dioxide (23-29) mEq/L BUN (8-23) mg/dL Creatinine (0.60-1.20) mg/dL Est GFR ( Amer) (> 60) Est GFR (Non-Af Amer) (> 60) BUN/Creatinine Ratio (6-26) Glucose (70-105) mg/dL POC Glucose 125 H (70-99) mg/dL Calculated Osmolality (280-300) Calcium (8.6-10.3) mg/dL Total Bilirubin (0.3-1.0) mg/dL Direct Bilirubin (0.0-0.2) mg/dL Indirect Bilirubin (0.0-1.2) mg/dL AST (13-39) Units/L ALT (7-52) Units/L Alkaline Phosphatase (34-104) Units/L Troponin I (< 0.04) ng/mL Serum Total Protein (6.4-8.9) g/dL Albumin (3.5-5.7) g/dL Globulin (2.4-3.5) g/dL Albumin/Globulin Ratio (1.1-2.2) Urine Color (Yellow) Urine Clarity (Clear) Urine pH (5.0-8.0) pH Units Ur Specific [place] (1.010-1.025) Urine Protein (Neg-Trace) mg/dL Urine Glucose (UA) (Normal) mg/dL Urine Ketones (Negative) mg/dL Urine Blood (Negative) Urine Nitrite (Negative) Urine Bilirubin (Negative) Urine Urobilinogen (Normal) mg/dL Ur Leukocyte Esterase (Negative) Ur Culture Indicated? (NO) 09/17/17 09/17/17 Range/Units 04:48 05:40 WBC (4.3-11.1) K/mcL RBC (3.82-4.97) M/mcL Hgb (11.5-15.4) g/dL Hct (35.3-44.9) % MCV (83.0-100.0) fL MCH (28.0-33.3) pg MCHC (31.6-35.5) g/dL RDW (11.5-14.5) % Plt Count (140-400) K/mcL MPV (9.4-12.4) fL Immature Gran % (0-4) % Seg Neutrophils % % Lymphocytes % % Monocytes % % Eosinophils % % Basophils % % Neutrophils # (1.6-8.9) K/mcL Lymphocytes # (0.6-4.6) K/mcL Monocytes # (0.0-1.3) K/mcL Eosinophils # (0.0-0.6) K/mcL Basophils # (0.0-0.2) K/mcL PT (9.4-12.1) Seconds INR APTT (26.0-36.0) Seconds Sodium 140 (136-145) mEq/L Potassium 3.5 (3.5-5.1) mEq/L Chloride 103 (98-107) mEq/L Carbon Dioxide 28 (23-29) mEq/L BUN 23 (8-23) mg/dL Creatinine 0.62 (0.60-1.20) mg/dL Est GFR ( Amer) > 60 (> 60) Est GFR (Non-Af Amer) > 60 (> 60) BUN/Creatinine Ratio 37 H (6-26) Glucose 126 H (70-105) mg/dL POC Glucose (70-99) mg/dL Calculated Osmolality 295 (280-300) Calcium 10.6 H (8.6-10.3) mg/dL Total Bilirubin 0.5 (0.3-1.0) mg/dL Direct Bilirubin 0.2 (0.0-0.2) mg/dL Indirect Bilirubin 0.3 (0.0-1.2) mg/dL AST 14 (13-39) Units/L ALT 8 (7-52) Units/L Alkaline Phosphatase 10 L (34-104) Units/L Troponin I < 0.03 (< 0.04) ng/mL Serum Total Protein 6.9 (6.4-8.9) g/dL Albumin 3.7 (3.5-5.7) g/dL Globulin 3.2 (2.4-3.5) g/dL Albumin/Globulin Ratio 1.2 (1.1-2.2) Urine Color Yellow (Yellow) Urine Clarity Clear (Clear) Urine pH 5.5 (5.0-8.0) pH Units Ur Specific [place] 1.026 H (1.010-1.025) Urine Protein Negative (Neg-Trace) mg/dL Urine Glucose (UA) Normal (Normal) mg/dL Urine Ketones Negative (Negative) mg/dL Urine Blood Negative (Negative) Urine Nitrite Negative (Negative) Urine Bilirubin Negative (Negative) Urine Urobilinogen Normal (Normal) mg/dL Ur Leukocyte Esterase Negative (Negative) Ur Culture Indicated? NO (NO) - Radiology Data Radiology results reviewed: Yes I reviewed the patient's radiology results. Cervical Spine CT 09/17/17 04:45 IMPRESSION: Small right frontal scalp contusion. No underlying displaced calvarial fracture or acute intracranial abnormality No acute cervical spine fracture or subluxation. Stable chronic cerebral volume loss and white matter disease which likely reflects sequela of chronic microvascular ischemia. Unchanged cervical spondylosis. Unchanged heterogeneous thyroid gland 18 mm hypodensity the right lobe. Consideration could be given to ultrasound follow-up based patient's life expectancy and comorbidities. RECOMMENDATIONS: Managing Incidental Thyroid Nodule Detected at CT or MRI or US Managing Incidental Thyroid Nodule Detected at CT or MRI or US 1. Further evaluation by thyroid Ultrasound recommended for these incidental nodules: Patient Age 35 years or more - Nodule 1.5 cm in size or greater 2. Follow up thyroid ultrasound also recommend in these scenarios - Heterogeneous, enlarged thyroid gland. 3. NO further imaging is recommended in the following scenarios - Those patients with limited life expectancy or significant Co-morbidities. Note: These recommendations do not apply to pts. w/ increased risk for thyroid cancer or pts. with symptomatic thyroid disease. Recommendations for f/u of Incidental Thyroid Nodules (ITN) found on CT, MR, NM and Extrathyroidal US are based upon the ACR white paper and Jacobs 3-tiered system for managing ITNs: J Am Wild Radiol. 2014;12(2): 143-50 D/ / Nilesh Singh / Nilesh Singh Interpreting Provider: Nilesh Singh Elbow X-Ray 09/17/17 04:45 IMPRESSION: No acute displaced fracture or malalignment. 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 No underlying displaced calvarial fracture or acute intracranial abnormality No acute cervical spine fracture or subluxation. Stable chronic cerebral volume loss and white matter disease which likely reflects sequela of chronic microvascular ischemia. Unchanged cervical spondylosis. Unchanged heterogeneous thyroid gland 18 mm hypodensity the right lobe. Consideration could be given to ultrasound follow-up based patient's life expectancy and comorbidities. RECOMMENDATIONS: Managing Incidental Thyroid Nodule Detected at CT or MRI or US Managing Incidental Thyroid Nodule Detected at CT or MRI or US 1. Further evaluation by thyroid Ultrasound recommended for these incidental nodules: Patient Age 35 years or more - Nodule 1.5 cm in size or greater 2. Follow up thyroid ultrasound also recommend in these scenarios - Heterogeneous, enlarged thyroid gland. 3. NO further imaging is recommended in the following scenarios - Those patients with limited life expectancy or significant Co-morbidities. Note: These recommendations do not apply to pts. w/ increased risk for thyroid cancer or pts. with symptomatic thyroid disease. Recommendations for f/u of Incidental Thyroid Nodules (ITN) found on CT, MR, NM and Extrathyroidal US are based upon the ACR white paper and Jacobs 3-tiered system for managing ITNs: J Am Wild Radiol. 2015 Feb;12(2): 143-50 D/ / Nilesh Singh / Nilesh Singh Interpreting Provider: Nilesh Singh Lumbar Spine X-Ray 09/17/17 04:45 IMPRESSION: No acute fracture or subluxation. Lumbar spondylosis. D/ / Nilesh Singh / Nilesh Singh Interpreting Provider: Nilesh Singh Sacrum and Coccyx X-Ray 09/17/17 04:45 IMPRESSION: No apparent fracture or malalignment. Exam limited by osteopenia. D/ / Nilesh Singh / Nilesh Singh Interpreting Provider: Nilesh Singh Chest X-Ray 09/17/17 04:48 IMPRESSION: No acute cardiopulmonary abnormality. D/ / Nilesh Singh / Nilesh Singh Interpreting Provider: Nilesh Singh - EKG Data EKG attestation: Yes I reviewed and interpreted this EKG. EKG results narrative: 09/17/2017 05:36. Normal sinus rhythm. Rate 68. [place] 163. QRS 79. QTC 396. Left axis deviation. No acute ST elevation or depression. S.B.A.R. - S.B.A.R. Situation: Demographics, MOA Background: Presenting Complaint, Relevant PMH, Meds, & Allergies Assessment: Vital Signs, Course and respsone to treatment, Exam Concerns, Patient/Family Expectation, Pertinant Lab Results, Outstanding Labs Recommendation: Barrier(s) to disposition, Recommendation based on pending studies, treatments, or consults S.B.A.R. Report Given to: Dr. Epstein, Dr. Zhu S.B.A.RPo Repor Time: 06:42
--- NOTE | 2017-09-17 05:18 | Emergency Department Note ---
Disposition Clinical Impression: Confusion, Sacral pain Fall Qualifiers: Encounter type: initial encounter Qualified Code(s): W19.XXXA - Unspecified fall, initial encounter Contusion of head Qualifiers: Encounter type: initial encounter Contusion of head detail: scalp Qualified Code(s): S00.03XA - Contusion of scalp, initial encounter Headache Qualifiers: Headache type: unspecified Headache chronicity pattern: unspecified pattern Intractability: not intractable Qualified Code(s): R51 - Headache Elbow pain Qualifiers: Laterality: left Qualified Code(s): M25.522 - Pain in left elbow Disposition: Admitted As Inpatient Condition: Good Referrals: Shante Gillette MD [Primary Care Provider] - Forms: ED Satisfaction Letter General Adult HPI - General Chief complaint: ED Head Injury Stated complaint: fall Time Seen by Provider: 09/17/17 04:45 Source: patient, family, EMS Mode of arrival: EMS Limitations: no limitations - History of Present Illness Pain Scale: 5 - Related Data Home Medications Medication Instructions Recorded Confirmed Aspirin Enteric Coated [Aspirin EC] 81 mg PO QAM 01/02/15 10/04/16 Calcium Carbonate [Calcium] 500 mg PO BID 01/02/15 10/04/16 Lovastatin 40 mg PO QPM 01/02/15 10/04/16 Multivitamin [Multivitamins] 1 cap PO QAM 01/02/15 10/04/16 [place]-3/Dha/Epa/Fish Oil [Cvs Fish 1 each PO BID 01/02/15 10/04/16 Oil 1,000 mg Softgel] Donepezil [Aricept] 5 mg PO HS 04/05/15 10/04/16 Latanoprost [Xalatan] 1 drop OP QPM 10/04/16 10/04/16 Sertraline [Zoloft] 50 mg PO DAILY 10/04/16 10/04/16 Timolol Maleate 0.5% 1 mg OP BID 10/04/16 10/04/16 Tolterodine Tartrate [Detrol] 2 mg PO BID 10/04/16 10/04/16 Previous Rx's Medication Instructions Recorded Acetaminophen [Tylenol] 500 mg PO Q6HR PRN #20 tablet 04/02/15 Cefdinir [Omnicef] 300 mg PO BID #6 capsule 10/05/16 HYDROcodone/Acet 5/325 mg [[place] 1 tab PO BID PRN #10 tablet 10/05/16 5-325 mg] Allergies Allergy/AdvReac Type Severity Reaction Status Date / Time Sulfa (Sulfonamide Allergy Unknown unknown Verified 07/19/17 10:23 Antibiotics) Constitutional: Denies: fever Cardiovascular: Denies: chest pain Respiratory: Denies: dyspnea Gastrointestinal: Denies: abdominal pain, nausea, vomiting, diarrhea Musculoskeletal: Reports: arthralgia, myalgia Integumentary: Reports: other Neurological: Reports: headache. 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 [employer] history - Social History Smoking Status: Never smoker Smokeless Tobacco Status: No Alcohol use: Reports: none Drug use: Reports: none Physical Exam - General Limitations: no limitations General appearance: alert Course Vital Signs Temperature 98.2 F 09/17/17 04:38 Pulse Rate 73 09/17/17 04:38 Respiratory Rate 24 09/17/17 04:38 Blood Pressure 142/75 09/17/17 04:38 O2 Sat by Pulse Oximetry 97 09/17/17 04:38 Temperature 98.2 F 09/17/17 04:38 Pulse Rate 67 09/17/17 06:35 Respiratory Rate 18 09/17/17 06:35 Blood Pressure 125/62 09/17/17 06:35 O2 Sat by Pulse Oximetry 97 09/17/17 06:35 Oxygen Delivery Oxygen Delivery Room Air Medical Decision Making - Lab Data Result diagrams: 09/17/17 04:48 09/17/17 04:48 Lab Results 09/17/17 09/17/17 09/17/17 Range/Units 04:45 04:48 04:48 WBC 7.1 (4.3-11.1) K/mcL RBC 4.17 (3.82-4.97) M/mcL Hgb 11.9 (11.5-15.4) g/dL Hct 35.1 L (35.3-44.9) % MCV 84.2 (83.0-100.0) fL MCH 28.5 (28.0-33.3) pg MCHC 33.9 (31.6-35.5) g/dL RDW 12.9 (11.5-14.5) % Plt Count 221 (140-400) K/mcL MPV 10.6 (9.4-12.4) fL Immature Gran % 0.4 (0-4) % Seg Neutrophils % 65.9 % Lymphocytes % 19.3 % Monocytes % 11.5 % Eosinophils % 2.3 % Basophils % 0.6 % Neutrophils # 4.7 (1.6-8.9) K/mcL Lymphocytes # 1.4 (0.6-4.6) K/mcL Monocytes # 0.8 (0.0-1.3) K/mcL Eosinophils # 0.2 (0.0-0.6) K/mcL Basophils # 0.0 (0.0-0.2) K/mcL PT 14.3 H (9.4-12.1) Seconds INR 1.3 APTT 27.5 (26.0-36.0) Seconds Sodium (136-145) mEq/L Potassium (3.5-5.1) mEq/L Chloride (98-107) mEq/L Carbon Dioxide (23-29) mEq/L BUN (8-23) mg/dL Creatinine (0.60-1.20) mg/dL Est GFR ( Amer) (> 60) Est GFR (Non-Af Amer) (> 60) BUN/Creatinine Ratio (6-26) Glucose (70-105) mg/dL POC Glucose 125 H (70-99) mg/dL Calculated Osmolality (280-300) Calcium (8.6-10.3) mg/dL Total Bilirubin (0.3-1.0) mg/dL Direct Bilirubin (0.0-0.2) mg/dL Indirect Bilirubin (0.0-1.2) mg/dL AST (13-39) Units/L ALT (7-52) Units/L Alkaline Phosphatase (34-104) Units/L Troponin I (< 0.04) ng/mL Serum Total Protein (6.4-8.9) g/dL Albumin (3.5-5.7) g/dL Globulin (2.4-3.5) g/dL Albumin/Globulin Ratio (1.1-2.2) Urine Color (Yellow) Urine Clarity (Clear) Urine pH (5.0-8.0) pH Units Ur Specific [place] (1.010-1.025) Urine Protein (Neg-Trace) mg/dL Urine Glucose (UA) (Normal) mg/dL Urine Ketones (Negative) mg/dL Urine Blood (Negative) Urine Nitrite (Negative) Urine Bilirubin (Negative) Urine Urobilinogen (Normal) mg/dL Ur Leukocyte Esterase (Negative) Ur Culture Indicated? (NO) 09/17/17 09/17/17 Range/Units 04:48 05:40 WBC (4.3-11.1) K/mcL RBC (3.82-4.97) M/mcL Hgb (11.5-15.4) g/dL Hct (35.3-44.9) % MCV (83.0-100.0) fL MCH (28.0-33.3) pg MCHC (31.6-35.5) g/dL RDW (11.5-14.5) % Plt Count (140-400) K/mcL MPV (9.4-12.4) fL Immature Gran % (0-4) % Seg Neutrophils % % Lymphocytes % % Monocytes % % Eosinophils % % Basophils % % Neutrophils # (1.6-8.9) K/mcL Lymphocytes # (0.6-4.6) K/mcL Monocytes # (0.0-1.3) K/mcL Eosinophils # (0.0-0.6) K/mcL Basophils # (0.0-0.2) K/mcL PT (9.4-12.1) Seconds INR APTT (26.0-36.0) Seconds Sodium 140 (136-145) mEq/L Potassium 3.5 (3.5-5.1) mEq/L Chloride 103 (98-107) mEq/L Carbon Dioxide 28 (23-29) mEq/L BUN 23 (8-23) mg/dL Creatinine 0.62 (0.60-1.20) mg/dL Est GFR ( Amer) > 60 (> 60) Est GFR (Non-Af Amer) > 60 (> 60) BUN/Creatinine Ratio 37 H (6-26) Glucose 126 H (70-105) mg/dL POC Glucose (70-99) mg/dL Calculated Osmolality 295 (280-300) Calcium 10.6 H (8.6-10.3) mg/dL Total Bilirubin 0.5 (0.3-1.0) mg/dL Direct Bilirubin 0.2 (0.0-0.2) mg/dL Indirect Bilirubin 0.3 (0.0-1.2) mg/dL AST 14 (13-39) Units/L ALT 8 (7-52) Units/L Alkaline Phosphatase 10 L (34-104) Units/L Troponin I < 0.03 (< 0.04) ng/mL Serum Total Protein 6.9 (6.4-8.9) g/dL Albumin 3.7 (3.5-5.7) g/dL Globulin 3.2 (2.4-3.5) g/dL Albumin/Globulin Ratio 1.2 (1.1-2.2) Urine Color Yellow (Yellow) Urine Clarity Clear (Clear) Urine pH 5.5 (5.0-8.0) pH Units Ur Specific [place] 1.026 H (1.010-1.025) Urine Protein Negative (Neg-Trace) mg/dL Urine Glucose (UA) Normal (Normal) mg/dL Urine Ketones Negative (Negative) mg/dL Urine Blood Negative (Negative) Urine Nitrite Negative (Negative) Urine Bilirubin Negative (Negative) Urine Urobilinogen Normal (Normal) mg/dL Ur Leukocyte Esterase Negative (Negative) Ur Culture Indicated? NO (NO) Attestation Statement - Attestation Attestation: I examined this patient and my medical decision-making was reviewed with the Resident Physician. I agree with the documented findings, disposition and treatment plan as described except to the extent set forth below. Patient to the ED after falls. She has had 2 today. She fell out of a chair of the chair and fell forward and struck her head. Family at bedside states she is more confused than baseline. Patient thinks this year 216. On examination she has a hematoma to the frontal area. Awake alert pleasantly confused with a GCS of 14. Moving all extremities. Plan. Imaging of the injured areas and altered mental status workup. Patient resides home alone. Patient is not safe for discharge to home alone in her current mental state. Workup unremarkable. Admitting.
[2017-09-17 05:53] LABS: Bilirubin,Urine Negative (Negative); Blood,Urine Negative (Negative); Clarity,Urine Clear (Clear); Color,Urine Yellow (Yellow); Glucose,Urine (UA) Normal (Normal); Ketones,Urine Negative (Negative); Leukocyte Esterase,Urine Negative (Negative); Nitrite,Urine Negative (Negative); PH,Urine 5.5 pH Units (5.0-8.0); Protein,Urine Negative (Neg-Trace); Specific Gravity,Urine 1.026 (1.010-1.025); Urobilinogen,Urine Normal (Normal)
[2017-09-17 06:08] LABS: INR 1.3; Prothrombin Time 14.3 Seconds (9.4-12.1)
[2017-09-17 06:22] LABS: Troponin I < 0.03 ng/mL (< 0.04)
[2017-09-17 06:23] LABS: Alanine Aminotransferase 8 Units/L (7-52); Albumin 3.7 g/dL (3.5-5.7); Albumin/Globulin Ratio 1.2 (1.1-2.2); Alkaline Phosphatase 10 Units/L (34-104); Aspartate Amino Transferase 14 Units/L (13-39); BUN/Creatinine Ratio 37 (6-26); Bilirubin,Direct 0.2 mg/dL (0.0-0.2); Bilirubin,Indirect 0.3 mg/dL (0.0-1.2); Bilirubin,Total 0.5 mg/dL (0.3-1.0); Blood Urea Nitrogen 23 mg/dL (8-23); Calcium 10.6 mg/dL (8.6-10.3); Carbon Dioxide 28 mEq/L (23-29); Chloride 103 mEq/L (98-107); Globulin 3.2 g/dL (2.4-3.5); Glucose 126 mg/dL (70-105); Osmolality,Calculated 295 (280-300); Potassium 3.5 mEq/L (3.5-5.1); Sodium 140 mEq/L (136-145); Total Protein 6.9 g/dL (6.4-8.9); eGFR For African Americans > 60 (> 60); eGFR For Non-African Americans > 60 (> 60)
[2017-09-17 06:24] LABS: Activated Partial Thrombo Time 27.5 Seconds (26.0-36.0)
[2017-09-17 06:28] LABS: Basophils % 0.6 %; Eosinophils # 0.2 K/mcL (0.0-0.6); Eosinophils % 2.3 %; Hematocrit 35.1 % (35.3-44.9); Hemoglobin 11.9 g/dL (11.5-15.4); Immature Granulocytes % 0.4 % (0-4); Lymphocytes # 1.4 K/mcL (0.6-4.6); Lymphocytes % 19.3 %; Mean Corpuscular HGB Conc 33.9 g/dL (31.6-35.5); Mean Corpuscular Hemoglobin 28.5 pg (28.0-33.3); Mean Corpuscular Volume 84.2 fL (83.0-100.0); Mean Platelet Volume 10.6 fL (9.4-12.4); Monocytes # 0.8 K/mcL (0.0-1.3); Monocytes % 11.5 %; Neutrophils # 4.7 K/mcL (1.6-8.9); Platelet Count 221 K/mcL (140-400); Red Blood Count 4.17 M/mcL (3.82-4.97); Red Cell Distribution Width 12.9 % (11.5-14.5); Segmented Neutrophils % 65.9 %
--- NOTE | 2017-09-17 07:15 | Emergency Department Note ---
START Narrative - START START: I examined this patient and my medical decision-making was reviewed with the Resident Physician. I agree with the documented findings, disposition and treatment plan as described except to the extent set forth below. accepted signout from Dr. Liu and the plan is to admit to medicine for frequent falls and deconditioning. We are waiting on hospitlist to admit.
--- NOTE | 2017-09-17 07:23 | Emergency Department Note ---
Disposition Clinical Impression: Confusion, Sacral pain Fall Qualifiers: Encounter type: initial encounter Qualified Code(s): W19.XXXA - Unspecified fall, initial encounter Contusion of head Qualifiers: Encounter type: initial encounter Contusion of head detail: scalp Qualified Code(s): S00.03XA - Contusion of scalp, initial encounter Headache Qualifiers: Headache type: unspecified Headache chronicity pattern: unspecified pattern Intractability: not intractable Qualified Code(s): R51 - Headache Elbow pain Qualifiers: Laterality: left Qualified Code(s): M25.522 - Pain in left elbow Disposition: Admitted As Inpatient Condition: Good Referrals: Shante Gillette MD [Primary Care Provider] - Forms: ED Satisfaction Letter Time of Disposition: 07:22 General Adult HPI - General Chief complaint: ED Head Injury Stated complaint: fall Time Seen by Provider: 09/17/17 04:45 Source: patient, family, EMS Mode of arrival: EMS Limitations: no limitations - History of Present Illness Pain Scale: 5 - Related Data Home Medications Medication Instructions Recorded Confirmed Aspirin Enteric Coated [Aspirin EC] 81 mg PO QAM 01/02/15 10/04/16 Calcium Carbonate [Calcium] 500 mg PO BID 01/02/15 10/04/16 Lovastatin 40 mg PO QPM 01/02/15 10/04/16 Multivitamin [Multivitamins] 1 cap PO QAM 01/02/15 10/04/16 [place]-3/Dha/Epa/Fish Oil [Cvs Fish 1 each PO BID 01/02/15 10/04/16 Oil 1,000 mg Softgel] Donepezil [Aricept] 5 mg PO HS 04/05/15 10/04/16 Latanoprost [Xalatan] 1 drop OP QPM 10/04/16 10/04/16 Sertraline [Zoloft] 50 mg PO DAILY 10/04/16 10/04/16 Timolol Maleate 0.5% 1 mg OP BID 10/04/16 10/04/16 Tolterodine Tartrate [Detrol] 2 mg PO BID 10/04/16 10/04/16 Previous Rx's Medication Instructions Recorded Acetaminophen [Tylenol] 500 mg PO Q6HR PRN #20 tablet 04/02/15 Cefdinir [Omnicef] 300 mg PO BID #6 capsule 10/05/16 HYDROcodone/Acet 5/325 mg [[place] 1 tab PO BID PRN #10 tablet 10/05/16 5-325 mg] Allergies Allergy/AdvReac Type Severity Reaction Status Date / Time Sulfa (Sulfonamide Allergy Unknown unknown Verified 07/19/17 10:23 Antibiotics) Constitutional: Denies: fever Cardiovascular: Denies: chest pain Respiratory: Denies: dyspnea Gastrointestinal: Denies: abdominal pain, nausea, vomiting, diarrhea Musculoskeletal: Reports: arthralgia, myalgia Integumentary: Reports: other Neurological: Reports: headache. Denies: weakness, numbness, paresthesias Past Medical History - Past Medical History Medical history: Reports: cancer, diabetes, hyperlipidemia, hypertension Surgical history: Reports: knee replacement, other Psychiatric history: Reports: depression TOPOGRAPHICAL ENGINEER history: Reports: no TOPOGRAPHICAL ENGINEER history - Social History Smoking Status: Never smoker Smokeless Tobacco Status: No Alcohol use: Reports: none Drug use: Reports: none Physical Exam - General Limitations: no limitations General appearance: alert Course Course Narrative: Patient was signed out to me by the police shift commander. Patient had a complete workup that was pending admission to the hospital. We did admit her to the hospital to Dr. Lugo. He accepted the patient stable condition. The patient was pleasantly demented while the emergency department and in no distress. Vital Signs Temperature 98.2 F 09/17/17 04:38 Pulse Rate 73 09/17/17 04:38 Respiratory Rate 24 09/17/17 04:38 Blood Pressure 142/75 09/17/17 04:38 O2 Sat by Pulse Oximetry 97 09/17/17 04:38 Temperature 98.2 F 09/17/17 04:38 Pulse Rate 67 09/17/17 07:12 Respiratory Rate 16 09/17/17 07:12 Blood Pressure 99/81 09/17/17 07:12 O2 Sat by Pulse Oximetry 96 09/17/17 07:12 Oxygen Delivery Oxygen Delivery Room Air Medical Decision Making - Lab Data Result diagrams: 09/17/17 04:48 09/17/17 04:48 Lab Results 09/17/17 09/17/17 09/17/17 Range/Units 04:45 04:48 04:48 WBC 7.1 (4.3-11.1) K/mcL RBC 4.17 (3.82-4.97) M/mcL Hgb 11.9 (11.5-15.4) g/dL Hct 35.1 L (35.3-44.9) % MCV 84.2 (83.0-100.0) fL MCH 28.5 (28.0-33.3) pg MCHC 33.9 (31.6-35.5) g/dL RDW 12.9 (11.5-14.5) % Plt Count 221 (140-400) K/mcL MPV 10.6 (9.4-12.4) fL Immature Gran % 0.4 (0-4) % Seg Neutrophils % 65.9 % Lymphocytes % 19.3 % Monocytes % 11.5 % Eosinophils % 2.3 % Basophils % 0.6 % Neutrophils # 4.7 (1.6-8.9) K/mcL Lymphocytes # 1.4 (0.6-4.6) K/mcL Monocytes # 0.8 (0.0-1.3) K/mcL Eosinophils # 0.2 (0.0-0.6) K/mcL Basophils # 0.0 (0.0-0.2) K/mcL PT 14.3 H (9.4-12.1) Seconds INR 1.3 APTT 27.5 (26.0-36.0) Seconds Sodium (136-145) mEq/L Potassium (3.5-5.1) mEq/L Chloride (98-107) mEq/L Carbon Dioxide (23-29) mEq/L BUN (8-23) mg/dL Creatinine (0.60-1.20) mg/dL Est GFR ( Amer) (> 60) Est GFR (Non-Af Amer) (> 60) BUN/Creatinine Ratio (6-26) Glucose (70-105) mg/dL POC Glucose 125 H (70-99) mg/dL Calculated Osmolality (280-300) Calcium (8.6-10.3) mg/dL Total Bilirubin (0.3-1.0) mg/dL Direct Bilirubin (0.0-0.2) mg/dL Indirect Bilirubin (0.0-1.2) mg/dL AST (13-39) Units/L ALT (7-52) Units/L Alkaline Phosphatase (34-104) Units/L Troponin I (< 0.04) ng/mL Serum Total Protein (6.4-8.9) g/dL Albumin (3.5-5.7) g/dL Globulin (2.4-3.5) g/dL Albumin/Globulin Ratio (1.1-2.2) Urine Color (Yellow) Urine Clarity (Clear) Urine pH (5.0-8.0) pH Units Ur Specific Wise (1.010-1.025) Urine Protein (Neg-Trace) mg/dL Urine Glucose (UA) (Normal) mg/dL Urine Ketones (Negative) mg/dL Urine Blood (Negative) Urine Nitrite (Negative) Urine Bilirubin (Negative) Urine Urobilinogen (Normal) mg/dL Ur Leukocyte Esterase (Negative) Ur Culture Indicated? (NO) 09/17/17 09/17/17 Range/Units 04:48 05:40 WBC (4.3-11.1) K/mcL RBC (3.82-4.97) M/mcL Hgb (11.5-15.4) g/dL Hct (35.3-44.9) % MCV (83.0-100.0) fL MCH (28.0-33.3) pg MCHC (31.6-35.5) g/dL RDW (11.5-14.5) % Plt Count (140-400) K/mcL MPV (9.4-12.4) fL Immature Gran % (0-4) % Seg Neutrophils % % Lymphocytes % % Monocytes % % Eosinophils % % Basophils % % Neutrophils # (1.6-8.9) K/mcL Lymphocytes # (0.6-4.6) K/mcL Monocytes # (0.0-1.3) K/mcL Eosinophils # (0.0-0.6) K/mcL Basophils # (0.0-0.2) K/mcL PT (9.4-12.1) Seconds INR APTT (26.0-36.0) Seconds Sodium 140 (136-145) mEq/L Potassium 3.5 (3.5-5.1) mEq/L Chloride 103 (98-107) mEq/L Carbon Dioxide 28 (23-29) mEq/L BUN 23 (8-23) mg/dL Creatinine 0.62 (0.60-1.20) mg/dL Est GFR ( Amer) > 60 (> 60) Est GFR (Non-Af Amer) > 60 (> 60) BUN/Creatinine Ratio 37 H (6-26) Glucose 126 H (70-105) mg/dL POC Glucose (70-99) mg/dL Calculated Osmolality 295 (280-300) Calcium 10.6 H (8.6-10.3) mg/dL Total Bilirubin 0.5 (0.3-1.0) mg/dL Direct Bilirubin 0.2 (0.0-0.2) mg/dL Indirect Bilirubin 0.3 (0.0-1.2) mg/dL AST 14 (13-39) Units/L ALT 8 (7-52) Units/L Alkaline Phosphatase 10 L (34-104) Units/L Troponin I < 0.03 (< 0.04) ng/mL Serum Total Protein 6.9 (6.4-8.9) g/dL Albumin 3.7 (3.5-5.7) g/dL Globulin 3.2 (2.4-3.5) g/dL Albumin/Globulin Ratio 1.2 (1.1-2.2) Urine Color Yellow (Yellow) Urine Clarity Clear (Clear) Urine pH 5.5 (5.0-8.0) pH Units Ur Specific Wise 1.026 H (1.010-1.025) Urine Protein Negative (Neg-Trace) mg/dL Urine Glucose (UA) Normal (Normal) mg/dL Urine Ketones Negative (Negative) mg/dL Urine Blood Negative (Negative) Urine Nitrite Negative (Negative) Urine Bilirubin Negative (Negative) Urine Urobilinogen Normal (Normal) mg/dL Ur Leukocyte Esterase Negative (Negative) Ur Culture Indicated? NO (NO)
[2017-09-17] MEDS ORDERED: Naloxone 0.4 MG/ML INJ IVP PRN (11:32)
[2017-09-17] MEDS ORDERED: D5% in Water 1,000 ML IVC PRN (11:51)
[2017-09-17] MEDS ORDERED: *HR* Dextrose 50 % in Water (Syg) 50 ML SYRINGE IVP PRN (11:51)
[2017-09-17] MEDS ORDERED: Dextrose Gel 15 GM/37.5 ML TUBE PO PRN ×2 (11:51)
[2017-09-17 12:21] LABS: Vitamin B12 482 pg/mL (250-1100)
[2017-09-17 12:22] LABS: Folate > 22.3 ng/mL (3.0-16.0)
[2017-09-17] MEDS: Insulin LISPRO 300 UNITS/3 ML VIAL SQ SCH ×2 (12:23→16:54)
--- NOTE | 2017-09-17 15:41 | Internal Med History&Physical ---
Date of Encounter: 09/17/17 Time of Encounter: 09:07 Internal Medicine - H&P: HPI Chief complaint: Confusion, Fall Admitted From: Emergency Dept Plans for Post Hospital Care: Home History of present illness: Ms. Mcdonald is a 87 year old white female with PMH of HTN, HLD, diet-controlled Type II DM, and dementia who presented to ED via EMS for confusion and multiple recent falls. She had a ground level fall yesterday during which she hit her head. She was out in the yard working with her son when she slipped and fell. She denies any LOC. She did not want to come to ED yesterday. Prior to arrival to ED today, she had another ground level fall. She tried to bend over from a seated position to pick something up and she fell out of her chair and hit her head again. She denies LOC again. During my interview, her only complaint presently is pain on her head. She was found to have a contusion/ hematoma of her right head. All other workup in the ED was unremarkable. I was asked to admit patient for confusion increased from baseline and head contusion s/p falls. Past Med Surg Social Fam HX - Past Medical History Attestation: Yes The following information was validated with the patient. Source: patient Medical history: cancer, diabetes, hyperlipidemia, hypertension Psychiatric history: depression - Past Surgical History Surgical History: knee replacement, other - Social History Smoking Status: Never smoker Smokeless Tobacco Status: No Alcohol use: none Drug use: none - Family History Mother Living Status: Hx Family Cancer: Yes Father Living Status: Internal Medicine - H&P: Meds Aspirin Enteric Coated [Aspirin EC] 81 mg PO QAM 01/02/15 [History] Calcium Carbonate [Calcium] 500 mg PO BID 01/02/15 [History] Lovastatin 40 mg PO QPM 01/02/15 [History] Multivitamin [Multivitamins] 1 cap PO QAM 01/02/15 [History] [place]-3/Dha/Epa/Fish Oil [Cvs Fish Oil 1,000 mg Softgel] 1 cap PO BID 01/02/15 [ History] Acetaminophen [Tylenol] 500 mg PO Q6HR PRN #20 tablet 04/02/15 [Rx] Timolol Maleate 0.5% 1 drop RIGHT EYE BID 10/04/16 [History] Tolterodine Tartrate [Detrol] 2 mg PO BID 10/04/16 [History] Oxybutynin Chloride [Ditropan Xl] 10 mg PO DAILY 09/17/17 [History] 3 Allergy/AdvReac Type Severity Reaction Status Date / Time Sulfa (Sulfonamide Allergy Unknown unknown Verified 07/19/17 10:23 Antibiotics) - Constitutional Constitutional: falls, no anorexia, no chills, no fatigue, no fever(s), no lethargy, no malaise, no weakness, no weight gain, no weight loss - EENT Eyes: no blurry vision, no change in vision, no diplopia, no loss of vision, no pain, no other visual disturbances Ears: no decreased hearing, no ear pain Nose, mouth and throat: no dry mouth, no dysphagia, no facial pain, no mouth lesions, no mouth pain, no nasal congestion, no nasal discharge, no sinus pain, no sore throat - Cardiovascular Cardiovascular ROS IM: no chest pain, no diaphoresis, no dyspnea, no dyspnea on exertion, no edema, no palpitations, no syncope - Respiratory Respiratory: no cough, no dyspnea, no hemoptysis, no dyspnea on exertion, no wheezing, no chest congestion - Gastrointestinal Gastrointestinal: no abdominal pain, no change in bowel habits, no constipation , no diarrhea, no dysphagia, no heartburn, no hematemesis, no hematochezia, no melena, no nausea, no vomiting - Genitourinary Genitourinary: no difficulty urinating, no dysuria, no hematuria, no urinary frequency - Musculoskeletal Musculoskeletal ROS IM: no arthralgias, no joint swelling, no muscle weakness, no myalgias - Integumentary Integumentary IM: no erythema, no rash, no skin ulcer, no jaundice - Neurological Neurological ROS: abnormal gait, no behavioral changes, no confusion, no dizziness, no focal weakness, no headache(s), no vertigo, no weakness - Psychiatric Psychiatric: confusion, no anxiety, no behavioral changes, no depression - Endocrine Endocrine IM: no cold intolerance, no fatigue, no heat intolerance, no polydipsia, no polyphagia, no polyuria - Constitutional Vitals: Temp Pulse Resp BP Pulse Ox 97.8 F 61 14 109/60 98 09/17/17 15:11 09/17/17 15:11 09/17/17 15:11 09/17/17 15:11 09/17/17 15:11 General appearance: Present: cooperative, A&O X 2, pleasant, no acute distress, answers questions appropriately - Head Head exam: Present: normocephalic Additional comments: Approximately 3 cm diameter tender area of bruising and edema on right forehead - Eye Eye exam: Present: EOMI, PERRL. Absent: conjunctival injection, nystagmus, scleral icterus - ENT ENT exam: Present: mucous membranes moist, normal external ear exam, normal oropharynx - Neck Neck exam general surgery: Present: supple, trachea midline. Absent: lymphadenopathy, tenderness, thyromegaly - Respiratory Respiratory exam: Present: CTAB. Absent: accessory muscle use, rales, rhonchi, wheezes Additional comments: Normal WOB - Cardiovascular Cardiovascular exam: Present: RRR, +S1, +S2. Absent: diastolic murmur, gallop, rubs, systolic murmur Additional comments: No BLE edema - GI/Abdominal GI/Abdominal exam: Present: normal bowel sounds, soft. Absent: distended, hepatomegaly, mass, splenomegaly, tenderness - Neurological Exam Neurological exam: Present: abnormal gait, alert, CN II-XII intact, no focal deficits, strengths equal and symetr throughout. Absent: motor sensory deficit , facial droop, speech deficit Additional comments: Unsteady gait - Psychiatric Psychiatric exam: Present: normal affect, normal mood. Absent: anxious, depressed - Skin Skin exam: Present: dry, intact, warm. Absent: cyanosis, rash Internal Med - H&P Results - Labs CBC & Chem 7: 09/18/17 05:01 09/18/17 05:01 - VTE Reasons for not Prescribing Prophylaxis: Medical contraindication (Head contusion/hematoma) Documentation of Mechanical Device: Intermittent pneumatic compression device - Assessment and plan (1) Confusion Current Visit: Yes Status: Acute Assessment and plan: History of dementia, but some progressive worsening recently. A&O x 2 and converse appropriately per my examination. CT head unremarkable. CMP, CBC, UA , EKG, and CXR unremarkable. Will add TSH, Vitamin B12, folate, and magnesium to labwork. Will consult PT/OT as per below as confusion may be contributing to safety issues at home. Continue home dementia medications. Avoid opioids and sedating medications. Will monitor closely. (2) Fall Current Visit: Yes Status: Acute Assessment and plan: Patient ambulatory but with some unsteadiness of gait. Treat head contusion/ hematoma as per below. Obtain CK. PT/OT consulted as per above. SW consulted for possible placement needs. Qualifiers: Encounter type: initial encounter Qualified Code(s): W19.XXXA - Unspecified fall, initial encounter (3) Unsteady gait Current Visit: Yes Status: Acute Assessment and plan: PT/OT/SW consulted as per above. (4) Contusion of head Current Visit: Yes Status: Acute Assessment and plan: Small hematoma. Monitor closely. Pain control with Tylenol; avoid opioids due to confusion workup as per above. Recheck CBC in AM. Qualifiers: Encounter type: initial encounter Contusion of head detail: other part of head Qualified Code(s): S00.83XA - Contusion of other part of head, initial encounter (5) Hypertension Current Visit: Yes Status: Chronic Assessment and plan: No home pharmacotherapy. Continue to monitor. Qualifiers: Hypertension type: essential hypertension Qualified Code(s): I10 - Essential (primary) hypertension (6) Diabetes mellitus Current Visit: Yes Status: Chronic Assessment and plan: Diet-controlled. Start accuchecks and low dose SSI QID AC/HS; discontinue if normal readings. Qualifiers: Diabetes mellitus type: type 2 Diabetes mellitus terminal operations manager insulin use: without assisted use Diabetes mellitus complication status: without complication Qualified Code(s): E11.9 - Type 2 diabetes mellitus without complications (7) Dementia Current Visit: Yes Status: Chronic Qualifiers: Dementia type: unspecified type Dementia behavioral disturbance: without behavioral disturbance Qualified Code(s): F03.90 - Unspecified dementia without behavioral disturbance (8) DVT prophylaxis Current Visit: Yes Status: Acute Assessment and plan: Will hold off on anticoagulation due to head contusion/hematoma. Start SCDs. - Time Spent With Patient Total time spent is greater than 50% in coordination of care (as documented) at patient's floor/unit and/or counseling patient: 25 - 35 minutes
[2017-09-17] MEDS ORDERED: NON-FORMULARY MEDICATION 1 EACH EACH (Oxybutynin Chloride [Ditropan Xl] 10 MG) PO SCH (15:45)
[2017-09-17] MEDS: Aspirin Enteric Coated 81 MG Tablet PO SCH (17:00)
[2017-09-17] MEDS: Multivit/Ca/Min/Fe/FA 1 TAB TABLET PO SCH (17:00)
[2017-09-17] MEDS: Acetaminophen 325 MG TABLET PO PRN (17:56)
[2017-09-17 19:50] LABS: Amphetamine Screen,Urine Negative ng/mL (Cutoff=1000); Barbiturate Screen,Urine Negative ng/mL (Cutoff=200); Benzodiazepines Screen,Urine Negative ng/mL (Cutoff=200); Cannabinoid Screen,Urine Negative ng/mL (Cutoff = 50); Cocaine Screen,Urine Negative ng/mL (Cutoff= 300); Opiate Screen,Urine Negative ng/mL (Cutoff=300); Phencyclidine Screen,Urine Negative ng/mL (Cutoff=25)
[2017-09-17] MEDS: Patient Taking Own Medication 1 EACH PO SCH (20:26)
[2017-09-17] MEDS ORDERED: Insulin LISPRO 300 UNITS/3 ML VIAL SQ SCH (21:00)
[2017-09-18] MEDS: Acetaminophen 325 MG TABLET PO PRN (01:43)
[2017-09-18 05:38] LABS: Basophils % 0.5 %; Eosinophils # 0.2 K/mcL (0.0-0.6); Eosinophils % 2.9 %; Hematocrit 31.8 % (35.3-44.9); Hemoglobin 10.8 g/dL (11.5-15.4); Immature Granulocytes % 0.3 % (0-4); Lymphocytes # 1.1 K/mcL (0.6-4.6); Lymphocytes % 17.8 %; Mean Corpuscular Hemoglobin 28.3 pg (28.0-33.3); Mean Corpuscular Volume 83.5 fL (83.0-100.0); Mean Platelet Volume 10.6 fL (9.4-12.4); Monocytes # 0.8 K/mcL (0.0-1.3); Monocytes % 12.5 %; Neutrophils # 4.1 K/mcL (1.6-8.9); Platelet Count 206 K/mcL (140-400); Red Blood Count 3.81 M/mcL (3.82-4.97); Red Cell Distribution Width 12.6 % (11.5-14.5)
[2017-09-18 05:57] LABS: BUN/Creatinine Ratio 25 (6-26); Blood Urea Nitrogen 15 mg/dL (8-23); Calcium 10.3 mg/dL (8.6-10.3); Carbon Dioxide 32 mEq/L (23-29); Chloride 105 mEq/L (98-107); Glucose 103 mg/dL (70-105); Osmolality,Calculated 293 (280-300); Potassium 3.3 mEq/L (3.5-5.1); Sodium 141 mEq/L (136-145); eGFR For African Americans > 60 (> 60); eGFR For Non-African Americans > 60 (> 60)
[2017-09-18] MEDS: Insulin LISPRO 300 UNITS/3 ML VIAL SQ SCH ×2 (07:29→11:56)
[2017-09-18] MEDS: Multivit/Ca/Min/Fe/FA 1 TAB TABLET PO SCH (08:23)
[2017-09-18] MEDS: Aspirin Enteric Coated 81 MG Tablet PO SCH (08:23)
[2017-09-18] MEDS: Patient Taking Own Medication 1 EACH PO SCH (08:23)
[2017-09-18 11:25] VITALS: BP 118/65
--- NOTE | 2017-09-18 11:55 | Discharge Summary ---
- NOTES TO OUTPATIENT PROVIDER Notes to Outpatient Provider: Follow-up with primary care physician this week. Son is wondering about information to obtain a hospital bed. Also PT OT recommended home health with physical therapy and a home safety evaluation. Defer this to the primary care services they have her currently going to outpatient PT / OT and the son believes the patient is not technically homebound. Orders not resulted at time of discharge: Pending orders 09/19/17 04:00 BMP [Basic Metabolic Panel] AM 0400 Complete Blood Count [HEME] AM 0400 Date of Encounter: 09/18/17 Time of Encounter: 11:53 - Discharge Diagnosis (1) Diabetes mellitus Priority: Primary Status: Chronic Qualifiers: Diabetes mellitus type: type 2 Diabetes mellitus fci insulin use: without fci use Diabetes mellitus complication status: without complication Qualified Code(s): E11.9 - Type 2 diabetes mellitus without complications (2) Hypertension Priority: Primary Status: Chronic Comments: Blood pressure and heart rate are stable Qualifiers: Hypertension type: essential hypertension Qualified Code(s): I10 - Essential (primary) hypertension (3) Fall Priority: Primary Status: Acute Comments: PT OT evaluated the patient and recommended home health services. Patient is not homebound. She is currently going to outpatient physical therapy. Discussion with son and will continue that plan and follow-up with her primary care physician this week the patient lives alone but has a life alert button and the family checks on her frequently Qualifiers: Encounter type: initial encounter Qualified Code(s): W19.XXXA - Unspecified fall, initial encounter (4) Contusion of head Priority: Primary Status: Acute Comments: No acute cervical spine fracture or subluxation and small right frontal scalp contusion with no underlying displaced calvarial fracture or acute intercranial abnormality Qualifiers: Encounter type: initial encounter Contusion of head detail: other part of head Qualified Code(s): S00.83XA - Contusion of other part of head, initial encounter (5) Confusion Priority: Primary Status: Resolved (6) Unsteady gait Priority: Primary Status: Acute Comments: Continue PT OT Scuffs with patient's son that she is a fall risk and they still desire to take her home as they have family members checking on her (7) Dementia Priority: Primary Status: Chronic Qualifiers: Dementia type: unspecified type Dementia behavioral disturbance: without behavioral disturbance Qualified Code(s): F03.90 - Unspecified dementia without behavioral disturbance (8) Thyroid nodule Priority: Secondary Status: Chronic Comments: Incidental finding on CT scan Unchanged heterogenous thyroid gland 18 mm hyperdensity in the right lobe Ultrasound follow-up based on patient's life expectancy and comorbidities as per primary care physician (9) Hypokalemia Priority: Primary Status: Acute Comments: Replaced Hospital course: Ms. Mcdonald is a 87 year old female with a past medical history of hypertension, hyperlipidemia, diet-controlled type 2 diabetes mellitus and dementia who is admitted to the ED via EMS for confusion and multiple falls at home. She had 2 ground-level falls yesterday. One was a slip and fall the other was atypical for it from the chair. The son states that she sits on the very edge of a chair and is not careful. The patient is denying any complaints today. Physical therapy and occupational therapy's notes were reviewed. The patient is currently going to outpatient physical therapy as per her family physician. I discussed with the younger son who states the plan is to take her home his family checks on her frequently. She does have a life alert button. The patient wants to go home and feels she is back to her baseline. She is alert oriented and cooperative this morning. Spoke with the social services specialist and the plan is for discharge to home and continue the outpatient services with the family involved in her care. The power of trust and estates attorney is the older son time and he is aware she is going to be discharged today. Discharge discussed with: patient, family, nurse, social work - Time Spent with Patient Total time spent providing and/or coordinating discharge services: Less than 30 minutes - Discharge Medications Home Medications: Aspirin Enteric Coated [Aspirin EC] 81 mg PO QAM 01/02/15 [History] Calcium Carbonate [Calcium] 500 mg PO BID 01/02/15 [History] Lovastatin 40 mg PO QPM 01/02/15 [History] Multivitamin [Multivitamins] 1 cap PO QAM 01/02/15 [History] [place]-3/Dha/Epa/Fish Oil [[facility]vs Fish Oil 1,000 mg Softgel] 1 cap PO BID 01/02/15 [ History] Acetaminophen [Tylenol] 500 mg PO Q6HR PRN #20 tablet 04/02/15 [Rx] Timolol Maleate 0.5% 1 drop RIGHT EYE BID 10/04/16 [History] Tolterodine Tartrate [Detrol] 2 mg PO BID 10/04/16 [History] Oxybutynin Chloride [Ditropan Xl] 10 mg PO DAILY 09/17/17 [History] Allergies/Adverse Reactions: 3 Allergy/AdvReac Type Severity Reaction Status Date / Time Sulfa (Sulfonamide Allergy Unknown unknown Verified 07/19/17 10:23 Antibiotics) Date of admission: 09/17/17 07:35 Primary care physician: Shante Gillette, Consults: 09/17/17 09:31 Consult to Or Nurse Manager [CONS] Stat Reason for SW Consult: Placement 09/17/17 11:15 Consult to Occupational Therapy [CONS] Stat Comment: Evaluate, develop and implement POC Reason for Consult: Please evalute at some point today and make recommendations. Plan for discharge tomorrow. Does patient have active BEDREST order?: No Is patient medically & hemodynamically stable?: Yes Patient assessed for mobility or mobilized this visit?: Yes Consult to Physical Therapy [CONS] Stat Comment: Evaluate, develop and implement POC Reason for Consult: Please evalute at some point today and make recommendations. Plan for discharge tomorrow. Does patient have active BEDREST order?: No Is patient medically & hemodynamically stable?: Yes Patient assessed for mobility or mobilized this visit?: Yes Discharging clinician: Nickie Rdz Anticipated date of discharge: 09/18/17 - Constitutional Vitals: Temp Pulse Resp BP Pulse Ox 98.9 F 60 16 118/65 97 09/18/17 11:24 09/18/17 11:24 09/18/17 11:24 09/18/17 11:24 09/18/17 11:24 General appearance: Present: cooperative, A&O X 2, A&O X 3, pleasant, no acute distress, answers questions appropriately - Head Head exam: Present: atraumatic, normocephalic - Eye Eye exam: Present: PERRL, conjuntiva pink, sclera anicteric Pupils: Present: PERRL - Neck Neck exam general surgery: Present: supple, trachea midline. Absent: lymphadenopathy - Respiratory Respiratory exam: Present: CTAB. Absent: accessory muscle use, rales, rhonchi, wheezes - Cardiovascular Cardiovascular exam: Present: RRR, +S1, +S2. Absent: diastolic murmur, gallop, rubs, systolic murmur - GI/Abdominal GI/Abdominal exam: Present: normal bowel sounds, soft, no peritoneal signs. Absent: distended, tenderness - Extremities Exam Extremities exam: Present: warm, radial pulses palpable and symmetrical. Absent : calf tenderness, cyanotic, pedal edema - Neurological Exam Neurological exam: Present: alert, CN II-XII intact, oriented X3, no focal deficits, strengths equal and symetr throughout. Absent: pronater drift, facial droop, speech deficit - Skin Skin exam: Present: abrasion, dry, intact, normal color, warm Additional comments: Small abrasion on head from recent fall, no drainage no bleeding no swelling - Patient Status Disposition: Home, Self-Care Condition: Good Functional capacity at discharge: independent ambulation Overall status at discharge: patient is back to baseline - Discharge Instructions Follow Up With: Shante Gillette MD [Primary Care Provider] - Additional Instructions: Spoke with the patient's son at the bedside. He states family is very active and checking on their mother. He checks on her twice a day. His checks on her if needed. An older son checks on her throughout the day and lives next- door. He states she started outpatient physical therapy last week per the primary care physician. To follow up with primary care doctor this week. - Diet and Activity Activity: increase activity as tolerated Diet: advance to your usual diet - VTE Reasons for not Prescribing Prophylaxis: Medical contraindication (Head contusion/hematoma) Documentation of Mechanical Device: Intermittent pneumatic compression device
--- NOTE | 2017-09-20 05:37 | Electrocardiograph Report ---
[place] [id number] Test Date: 2017-09-17 Pat Name: Polina Mcdonald Department: 102 Room: 3B Gender: F Qualitative Researcher: Lrayesha : 1930 Requested By: Aaron James Order Number: [id number] Reading MD: Avila Pearl Measurements Intervals [place] Rate: 68 P: 30 CT: 163 QRS: -4 QRSD: 79 T: 33 QT: 378 QTc: 396 Interpretive Statements SINUS RHYTHM Electronically Signed On 09-20-2017 5:35:41 EDT by Avila Pearl
== END 2017-09-18 13:10 | disposition home or self-care (01) ==
LOC: 3BNU 04:36 → EMEROO 04:36 → 3BNU 08:49
PROVIDERS: ADMIT Family Medicine; ATTEND Registered Nurse

== ENCOUNTER 2017-10-24 14:19 | Inpatient (IN) ==
[2017-10-24 15:14] LABS: Basophils % 0.4 %; Eosinophils # 0.2 K/mcL (0.0-0.6); Eosinophils % 2.1 %; Hematocrit 30.6 % (35.3-44.9); Hemoglobin 10.4 g/dL (11.5-15.4); Immature Granulocytes % 0.3 % (0-4); Lymphocytes # 1.7 K/mcL (0.6-4.6); Lymphocytes % 22.9 %; Mean Corpuscular Hemoglobin 28.7 pg (28.0-33.3); Mean Corpuscular Volume 84.5 fL (83.0-100.0); Mean Platelet Volume 11.1 fL (9.4-12.4); Monocytes # 0.9 K/mcL (0.0-1.3); Monocytes % 12.8 %; Neutrophils # 4.5 K/mcL (1.6-8.9); Platelet Count 185 K/mcL (140-400); Red Blood Count 3.62 M/mcL (3.82-4.97); Red Cell Distribution Width 13.7 % (11.5-14.5); Segmented Neutrophils % 61.5 %
--- NOTE | 2017-10-24 15:19 | Emergency Department Note ---
Disposition Clinical Impression: Hypercalcemia Altered mental status Qualifiers: Altered mental status type: unspecified Qualified Code(s): R41.82 - Altered mental status, unspecified Disposition: Admitted As Inpatient Condition: Fair Referrals: Shante Gillette MD [Primary Care Provider] - Time of Disposition: 16:33 General Adult HPI - General Chief complaint: ED Chest Pain Stated complaint: chest pain Time Seen by Provider: 10/24/17 14:20 Source: family Mode of arrival: EMS Limitations: altered mental status Nursing Notes Reviewed: Yes Vital Signs Reviewed: Yes - History of Present Illness HPI Narrative: Patient is an 87-year-old female who presents to [facility] ED with a chief complaint of not feeling well. Family who are present in the room are not her primary caretakers. However they state that her brother is her primary signals intelligence analyst and he states she not been feeling well for the last 2 days. Patient has been talking out of her head and has been confused. The do not think she has complained of any chest pain or difficulty breathing, abdominal pain, problems with urination or bowel movements. They do note that she has had a sacral "cyst" for which she has been treated with antibiotics. Onset (ago): day(s) (2) Pain Scale: 4 Improves with: nothing Worsens with: nothing Associated symptoms: Reports: confusion, weakness. Denies: chest pain, cough, fever/chills, nausea/vomiting, shortness of breath Treatments Prior to Arrival: none - Related Data Home Medications Medication Instructions Recorded Confirmed Aspirin Enteric Coated [Aspirin EC] 81 mg PO QAM 01/02/15 09/17/17 Calcium Carbonate [Calcium] 500 mg PO BID 01/02/15 09/17/17 Lovastatin 40 mg PO QPM 01/02/15 09/17/17 Multivitamin [Multivitamins] 1 cap PO QAM 01/02/15 09/17/17 [place]-3/Dha/Epa/Fish Oil [Cvs Fish 1 cap PO BID 01/02/15 09/17/17 Oil 1,000 mg Softgel] Timolol Maleate 0.5% 1 drop RIGHT EYE BID 10/04/16 09/17/17 Tolterodine Tartrate [Detrol] 2 mg PO BID 10/04/16 09/17/17 Oxybutynin Chloride [Ditropan Xl] 10 mg PO DAILY 09/17/17 09/17/17 Previous Rx's Medication Instructions Recorded Acetaminophen [Tylenol] 500 mg PO Q6HR PRN #20 tablet 04/02/15 Allergies Allergy/AdvReac Type Severity Reaction Status Date / Time Sulfa (Sulfonamide Allergy Unknown unknown Verified 07/19/17 10:23 Antibiotics) Limitations: ROS unobtainable due to patients medical condition Past Medical History - Past Medical History Source: old records reviewed, obtained from family Medical history: Reports: cancer, dementia, diabetes, hyperlipidemia, hypertension Surgical history: Reports: knee replacement, other Psychiatric history: Reports: depression CHANNEL WORKER history: Reports: no CHANNEL WORKER history - Social History Smoking Status: Never smoker Smokeless Tobacco Status: No Alcohol use: Reports: none Drug use: Reports: none Physical Exam - General Limitations: altered mental status General appearance: obtunded - Head Head exam: atraumatic, normocephalic, normal inspection - Eye Eye exam: Present: normal appearance, PERRL, EOMI - ENT ENT exam: normal exam, normal oropharynx, mucous membranes dry - Neck Neck exam: Present: normal inspection, full ROM, trachea midline - Chest Chest inspection: Present: normal inspection, symmetric chest wall rise - Respiratory Respiratory exam: Present: normal lung sounds bilaterally - Cardiovascular Cardiovascular exam: Present: regular rate, normal rhythm, normal heart sounds - Abdominal Exam Abdominal exam: Present: soft, Non-Tender. Absent: tenderness, distention, guarding, rebound, rigidity - Extremities Exam Extremities exam: Present: pedal edema (2+) - Neurological Exam Neurological exam: Present: other (GCS 14) - Psychiatric Psychiatric exam: Present: normal affect, normal mood - Skin Skin exam: Present: warm, dry, intact, normal color Course Course Narrative: Patient seen and examined. Concern for altered mental status. Altered mental status workup initiated along with CT of the head. - Reevaluation(s) Reevaluation #1: Labwork shows hypercalcemia with a calcium of 13.8. Patient has been elevated in the past but never this high. 1 L of IV fluids ordered. Urine analysis, CT of the head, chest x-ray unremarkable. It is possible that the patient's source of altered mentation is from the hypercalcemia. I discussed with the hospitalist who has accepted patient for admission. Time: 16:33 Vital Signs Temperature 98.8 F 10/24/17 14:20 Pulse Rate 66 10/24/17 14:20 Respiratory Rate 13 10/24/17 14:20 Blood Pressure 142/78 10/24/17 14:20 O2 Sat by Pulse Oximetry 100 10/24/17 14:20 Temperature 98.8 F 10/24/17 14:20 Pulse Rate 70 10/24/17 15:50 Respiratory Rate 16 10/24/17 15:50 Blood Pressure 150/67 10/24/17 15:50 O2 Sat by Pulse Oximetry 98 10/24/17 15:50 Oxygen Delivery Oxygen Delivery Room Air Medical Decision Making - Medical Records Medical records reviewed: Yes I reviewed the patient's medical records. - Lab Data Lab results reviewed: Yes I reviewed the patient's lab results. Result diagrams: 10/24/17 14:30 10/24/17 14:30 Lab Results 10/24/17 10/24/17 10/24/17 Range/Units 14:20 14:20 14:20 WBC (4.3-11.1) K/mcL RBC (3.82-4.97) M/mcL Hgb (11.5-15.4) g/dL Hct (35.3-44.9) % MCV (83.0-100.0) fL MCH (28.0-33.3) pg MCHC (31.6-35.5) g/dL RDW (11.5-14.5) % Plt Count (140-400) K/mcL MPV (9.4-12.4) fL Immature Gran % (0-4) % Seg Neutrophils % % Lymphocytes % % Monocytes % % Eosinophils % % Basophils % % Neutrophils # (1.6-8.9) K/mcL Lymphocytes # (0.6-4.6) K/mcL Monocytes # (0.0-1.3) K/mcL Eosinophils # (0.0-0.6) K/mcL Basophils # (0.0-0.2) K/mcL PT 13.5 H (9.4-12.1) Seconds INR 1.2 APTT 25.5 L (26.0-36.0) Seconds Sodium (136-145) mEq/L Potassium (3.5-5.1) mEq/L Chloride (98-107) mEq/L Carbon Dioxide (23-29) mEq/L BUN (8-23) mg/dL Creatinine (0.60-1.20) mg/dL Est GFR ( Amer) (> 60) Est GFR (Non-Af Amer) (> 60) BUN/Creatinine Ratio (6-26) Glucose (70-105) mg/dL Calculated Osmolality (280-300) Calcium (8.6-10.3) mg/dL Total Bilirubin 0.5 (0.3-1.0) mg/dL Direct Bilirubin 0.2 (0.0-0.2) mg/dL Indirect Bilirubin 0.3 (0.0-1.2) mg/dL AST 21 (13-39) Units/L ALT 13 (7-52) Units/L Alkaline Phosphatase 10 L (34-104) Units/L Troponin I (< 0.04) ng/mL B-Natriuretic Peptide 83 (Less than 100) pg/mL Serum Total Protein 6.4 (6.4-8.9) g/dL Albumin 3.6 (3.5-5.7) g/dL Globulin 2.8 (2.4-3.5) g/dL Albumin/Globulin Ratio 1.3 (1.1-2.2) Lipase (11-82) Units/L Urine Color (Yellow) Urine Clarity (Clear) Urine pH (5.0-8.0) pH Units Ur Specific [place] (1.010-1.025) Urine Protein (Neg-Trace) mg/dL Urine Glucose (UA) (Normal) mg/dL Urine Ketones (Negative) mg/dL Urine Blood (Negative) Urine Nitrite (Negative) Urine Bilirubin (Negative) Urine Urobilinogen (Normal) mg/dL Ur Leukocyte Esterase (Negative) Urine Microscopic RBC (0-3) per hpf Ur Squamous Epith Cells (None-Few) per lpf Urine Bacteria (None-Few) per hpf Hyaline Casts (None-Few) per lpf Ur Culture Indicated? (NO) 10/24/17 10/24/17 10/24/17 Range/Units 14:21 14:30 14:30 WBC 7.3 (4.3-11.1) K/mcL RBC 3.62 L (3.82-4.97) M/mcL Hgb 10.4 L (11.5-15.4) g/dL Hct 30.6 L (35.3-44.9) % MCV 84.5 (83.0-100.0) fL MCH 28.7 (28.0-33.3) pg MCHC 34.0 (31.6-35.5) g/dL RDW 13.7 (11.5-14.5) % Plt Count 185 (140-400) K/mcL MPV 11.1 (9.4-12.4) fL Immature Gran % 0.3 (0-4) % Seg Neutrophils % 61.5 % Lymphocytes % 22.9 % Monocytes % 12.8 % Eosinophils % 2.1 % Basophils % 0.4 % Neutrophils # 4.5 (1.6-8.9) K/mcL Lymphocytes # 1.7 (0.6-4.6) K/mcL Monocytes # 0.9 (0.0-1.3) K/mcL Eosinophils # 0.2 (0.0-0.6) K/mcL Basophils # 0.0 (0.0-0.2) K/mcL PT (9.4-12.1) Seconds INR APTT (26.0-36.0) Seconds Sodium 143 (136-145) mEq/L Potassium 3.4 L (3.5-5.1) mEq/L Chloride 100 (98-107) mEq/L Carbon Dioxide 36 H (23-29) mEq/L BUN 28 H (8-23) mg/dL Creatinine 1.20 (0.60-1.20) mg/dL Est GFR ( Amer) 52 L (> 60) Est GFR (Non-Af Amer) 43 L (> 60) BUN/Creatinine Ratio 23 (6-26) Glucose 120 H (70-105) mg/dL Calculated Osmolality 303 H (280-300) Calcium 13.8 H* (8.6-10.3) mg/dL Total Bilirubin (0.3-1.0) mg/dL Direct Bilirubin (0.0-0.2) mg/dL Indirect Bilirubin (0.0-1.2) mg/dL AST (13-39) Units/L ALT (7-52) Units/L Alkaline Phosphatase (34-104) Units/L Troponin I < 0.03 (< 0.04) ng/mL B-Natriuretic Peptide (Less than 100) pg/mL Serum Total Protein (6.4-8.9) g/dL Albumin (3.5-5.7) g/dL Globulin (2.4-3.5) g/dL Albumin/Globulin Ratio (1.1-2.2) Lipase 11 (11-82) Units/L Urine Color (Yellow) Urine Clarity (Clear) Urine pH (5.0-8.0) pH Units Ur Specific [place] (1.010-1.025) Urine Protein (Neg-Trace) mg/dL Urine Glucose (UA) (Normal) mg/dL Urine Ketones (Negative) mg/dL Urine Blood (Negative) Urine Nitrite (Negative) Urine Bilirubin (Negative) Urine Urobilinogen (Normal) mg/dL Ur Leukocyte Esterase (Negative) Urine Microscopic RBC (0-3) per hpf Ur Squamous Epith Cells (None-Few) per lpf Urine Bacteria (None-Few) per hpf Hyaline Casts (None-Few) per lpf Ur Culture Indicated? (NO) 10/24/17 Range/Units 16:15 WBC (4.3-11.1) K/mcL RBC (3.82-4.97) M/mcL Hgb (11.5-15.4) g/dL Hct (35.3-44.9) % MCV (83.0-100.0) fL MCH (28.0-33.3) pg MCHC (31.6-35.5) g/dL RDW (11.5-14.5) % Plt Count (140-400) K/mcL MPV (9.4-12.4) fL Immature Gran % (0-4) % Seg Neutrophils % % Lymphocytes % % Monocytes % % Eosinophils % % Basophils % % Neutrophils # (1.6-8.9) K/mcL Lymphocytes # (0.6-4.6) K/mcL Monocytes # (0.0-1.3) K/mcL Eosinophils # (0.0-0.6) K/mcL Basophils # (0.0-0.2) K/mcL PT (9.4-12.1) Seconds INR APTT (26.0-36.0) Seconds Sodium (136-145) mEq/L Potassium (3.5-5.1) mEq/L Chloride (98-107) mEq/L Carbon Dioxide (23-29) mEq/L BUN (8-23) mg/dL Creatinine (0.60-1.20) mg/dL Est GFR ( Amer) (> 60) Est GFR (Non-Af Amer) (> 60) BUN/Creatinine Ratio (6-26) Glucose (70-105) mg/dL Calculated Osmolality (280-300) Calcium (8.6-10.3) mg/dL Total Bilirubin (0.3-1.0) mg/dL Direct Bilirubin (0.0-0.2) mg/dL Indirect Bilirubin (0.0-1.2) mg/dL AST (13-39) Units/L ALT (7-52) Units/L Alkaline Phosphatase (34-104) Units/L Troponin I (< 0.04) ng/mL B-Natriuretic Peptide (Less than 100) pg/mL Serum Total Protein (6.4-8.9) g/dL Albumin (3.5-5.7) g/dL Globulin (2.4-3.5) g/dL Albumin/Globulin Ratio (1.1-2.2) Lipase (11-82) Units/L Urine Color Yellow (Yellow) Urine Clarity Slightly Hazy (Clear) Urine pH 6.5 (5.0-8.0) pH Units Ur Specific [place] 1.020 (1.010-1.025) Urine Protein Negative (Neg-Trace) mg/dL Urine Glucose (UA) Normal (Normal) mg/dL Urine Ketones Negative (Negative) mg/dL Urine Blood Negative (Negative) Urine Nitrite Negative (Negative) Urine Bilirubin Negative (Negative) Urine Urobilinogen Normal (Normal) mg/dL Ur Leukocyte Esterase Negative (Negative) Urine Microscopic RBC 0-3 (0-3) per hpf Ur Squamous Epith Cells Moderate H (None-Few) per lpf Urine Bacteria None Seen (None-Few) per hpf Hyaline Casts None Seen (None-Few) per lpf Ur Culture Indicated? NO (NO) - Radiology Data Radiology results reviewed: Yes I reviewed the patient's radiology results. Chest X-Ray 10/24/17 14:20 IMPRESSION: 1. No acute process identified. D/ / Sabino Benjamin MD / Sabino Benjamin MD Interpreting Provider: Sabino Benjamin MD Head CT 10/24/17 14:40 IMPRESSION: Study somewhat limited by patient motion artifact. Within this limitation, no acute intracranial abnormality is appreciated. White matter changes and temporal lobe atrophy are re- demonstrated. D/ / Hudson Garcia MD / Hudson Garcia MD Interpreting Provider: Hudson Garcia MD - EKG Data EKG #1 EKG attestation: Yes I reviewed and interpreted this EKG. EKG results narrative: EKG done at 1421 shows normal sinus rhythm with a rate of [address] elevation or depression. Normal axis.
[2017-10-24 15:20] LABS: INR 1.2; Prothrombin Time 13.5 Seconds (9.4-12.1)
[2017-10-24 15:22] LABS: Activated Partial Thrombo Time 25.5 Seconds (26.0-36.0)
[2017-10-24 15:24] LABS: Albumin 3.6 g/dL (3.5-5.7); Albumin/Globulin Ratio 1.3 (1.1-2.2); Bilirubin,Direct 0.2 mg/dL (0.0-0.2); Bilirubin,Indirect 0.3 mg/dL (0.0-1.2); Bilirubin,Total 0.5 mg/dL (0.3-1.0); Globulin 2.8 g/dL (2.4-3.5); Total Protein 6.4 g/dL (6.4-8.9)
[2017-10-24 15:36] LABS: BUN/Creatinine Ratio 23 (6-26); Blood Urea Nitrogen 28 mg/dL (8-23); Calcium 13.8 mg/dL (8.6-10.3); Carbon Dioxide 36 mEq/L (23-29); Chloride 100 mEq/L (98-107); Glucose 120 mg/dL (70-105); Osmolality,Calculated 303 (280-300); Potassium 3.4 mEq/L (3.5-5.1); Sodium 143 mEq/L (136-145); eGFR For African Americans 52 (> 60); eGFR For Non-African Americans 43 (> 60)
[2017-10-24] MEDS ORDERED: 0.9 % Sodium Chloride 1,000 ML IVC ONE (15:38)
--- NOTE | 2017-10-24 15:54 | Emergency Department Note ---
Disposition Clinical Impression: Altered mental status Qualifiers: Altered mental status type: unspecified Qualified Code(s): R41.82 - Altered mental status, unspecified Disposition: Still a Patient Referrals: Shante Gillette MD [Primary Care Provider] - General Adult [facility] - General Chief complaint: ED Chest Pain Stated complaint: chest pain Time Seen by Provider: 10/24/17 14:20 Source: family Mode of arrival: EMS Limitations: altered mental status - History of Present Illness Pain Scale: 4 Improves with: nothing Worsens with: nothing Associated symptoms: Reports: confusion, weakness. Denies: chest pain, cough, fever/chills, nausea/vomiting, shortness of breath Treatments Prior to Arrival: none - Related Data Home Medications Medication Instructions Recorded Confirmed Aspirin Enteric Coated [Aspirin EC] 81 mg PO QAM 01/02/15 09/17/17 Calcium Carbonate [Calcium] 500 mg PO BID 01/02/15 09/17/17 Lovastatin 40 mg PO QPM 01/02/15 09/17/17 Multivitamin [Multivitamins] 1 cap PO QAM 01/02/15 09/17/17 [place]-3/Dha/Epa/Fish Oil [Cvs Fish 1 cap PO BID 01/02/15 09/17/17 Oil 1,000 mg Softgel] Timolol Maleate 0.5% 1 drop RIGHT EYE BID 10/04/16 09/17/17 Tolterodine Tartrate [Detrol] 2 mg PO BID 10/04/16 09/17/17 Oxybutynin Chloride [Ditropan Xl] 10 mg PO DAILY 09/17/17 09/17/17 Previous Rx's Medication Instructions Recorded Acetaminophen [Tylenol] 500 mg PO Q6HR PRN #20 tablet 04/02/15 Allergies Allergy/AdvReac Type Severity Reaction Status Date / Time Sulfa (Sulfonamide Allergy Unknown unknown Verified 07/19/17 10:23 Antibiotics) Past Medical History - Past Medical History Medical history: Reports: cancer, dementia, diabetes, hyperlipidemia, hypertension Surgical history: Reports: knee replacement, other Psychiatric history: Reports: depression MC KAY MACHINE OPERATOR 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: 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: no MC KAY MACHINE OPERATOR history - Social History Smoking Status: Never smoker Smokeless Tobacco Status: No Alcohol use: Reports: none Drug use: Reports: none Physical Exam - General Limitations: altered mental status General appearance: obtunded Course Vital Signs Temperature 98.8 F 10/24/17 14:20 Pulse Rate 66 10/24/17 14:20 Respiratory Rate 13 10/24/17 14:20 Blood Pressure 142/78 10/24/17 14:20 O2 Sat by Pulse Oximetry 100 10/24/17 14:20 Temperature 98.8 F 10/24/17 14:20 Pulse Rate 66 10/24/17 14:20 Respiratory Rate 13 10/24/17 14:20 Blood Pressure 142/78 10/24/17 14:20 O2 Sat by Pulse Oximetry 100 10/24/17 14:20 Oxygen Delivery Oxygen Delivery Nasal Cannula Medical Decision Making - Lab Data Result diagrams: 10/24/17 14:30 10/24/17 14:30 Lab Results 10/24/17 10/24/17 10/24/17 Range/Units 14:20 14:20 14:21 WBC (4.3-11.1) K/mcL RBC (3.82-4.97) M/mcL Hgb (11.5-15.4) g/dL Hct (35.3-44.9) % MCV (83.0-100.0) fL MCH (28.0-33.3) pg MCHC (31.6-35.5) g/dL RDW (11.5-14.5) % Plt Count (140-400) K/mcL MPV (9.4-12.4) fL Immature Gran % (0-4) % Seg Neutrophils % % Lymphocytes % % Monocytes % % Eosinophils % % Basophils % % Neutrophils # (1.6-8.9) K/mcL Lymphocytes # (0.6-4.6) K/mcL Monocytes # (0.0-1.3) K/mcL Eosinophils # (0.0-0.6) K/mcL Basophils # (0.0-0.2) K/mcL PT 13.5 H (9.4-12.1) Seconds INR 1.2 APTT 25.5 L (26.0-36.0) Seconds Sodium (136-145) mEq/L Potassium (3.5-5.1) mEq/L Chloride (98-107) mEq/L Carbon Dioxide (23-29) mEq/L BUN (8-23) mg/dL Creatinine (0.60-1.20) mg/dL Est GFR ( Amer) (> 60) Est GFR (Non-Af Amer) (> 60) BUN/Creatinine Ratio (6-26) Glucose (70-105) mg/dL Calculated Osmolality (280-300) Calcium (8.6-10.3) mg/dL Total Bilirubin 0.5 (0.3-1.0) mg/dL Direct Bilirubin 0.2 (0.0-0.2) mg/dL Indirect Bilirubin 0.3 (0.0-1.2) mg/dL AST 21 (13-39) Units/L ALT 13 (7-52) Units/L Alkaline Phosphatase 10 L (34-104) Units/L Serum Total Protein 6.4 (6.4-8.9) g/dL Albumin 3.6 (3.5-5.7) g/dL Globulin 2.8 (2.4-3.5) g/dL Albumin/Globulin Ratio 1.3 (1.1-2.2) Lipase 11 (11-82) Units/L 10/24/17 10/24/17 Range/Units 14:30 14:30 WBC 7.3 (4.3-11.1) K/mcL RBC 3.62 L (3.82-4.97) M/mcL Hgb 10.4 L (11.5-15.4) g/dL Hct 30.6 L (35.3-44.9) % MCV 84.5 (83.0-100.0) fL MCH 28.7 (28.0-33.3) pg MCHC 34.0 (31.6-35.5) g/dL RDW 13.7 (11.5-14.5) % Plt Count 185 (140-400) K/mcL MPV 11.1 (9.4-12.4) fL Immature Gran % 0.3 (0-4) % Seg Neutrophils % 61.5 % Lymphocytes % 22.9 % Monocytes % 12.8 % Eosinophils % 2.1 % Basophils % 0.4 % Neutrophils # 4.5 (1.6-8.9) K/mcL Lymphocytes # 1.7 (0.6-4.6) K/mcL Monocytes # 0.9 (0.0-1.3) K/mcL Eosinophils # 0.2 (0.0-0.6) K/mcL Basophils # 0.0 (0.0-0.2) K/mcL PT (9.4-12.1) Seconds INR APTT (26.0-36.0) Seconds Sodium 143 (136-145) mEq/L Potassium 3.4 L (3.5-5.1) mEq/L Chloride 100 (98-107) mEq/L Carbon Dioxide 36 H (23-29) mEq/L BUN 28 H (8-23) mg/dL Creatinine 1.20 (0.60-1.20) mg/dL Est GFR ( Amer) 52 L (> 60) Est GFR (Non-Af Amer) 43 L (> 60) BUN/Creatinine Ratio 23 (6-26) Glucose 120 H (70-105) mg/dL Calculated Osmolality 303 H (280-300) Calcium 13.8 H* (8.6-10.3) mg/dL Total Bilirubin (0.3-1.0) mg/dL Direct Bilirubin (0.0-0.2) mg/dL Indirect Bilirubin (0.0-1.2) mg/dL AST (13-39) Units/L ALT (7-52) Units/L Alkaline Phosphatase (34-104) Units/L Serum Total Protein (6.4-8.9) g/dL Albumin (3.5-5.7) g/dL Globulin (2.4-3.5) g/dL Albumin/Globulin Ratio (1.1-2.2) Lipase (11-82) Units/L Attestation Statement - Attestation Attestation: I examined this patient and my medical decision-making was reviewed with the Resident Physician. I agree with the documented findings, disposition and treatment plan as described except to the extent set forth below. 87 year old femeal azeem ot the ED with aMS with not POA caretakers who states that she has been beomcing more congused and has needs IV ABX in the past for a sacaral infectoin in which she presented simliarly. Moira does appear confused on exam/. WE will do an AMS workup and rule out infectious source and then likely admit ot [facility]. She does appear to be hypercalemic on labs and takes calcium supplements, it could be attributing to her confusion. WE will treat with IVF at this time
[2017-10-24 16:19] LABS: Bilirubin,Urine Negative (Negative); Blood,Urine Negative (Negative); Color,Urine Yellow (Yellow); Glucose,Urine (UA) Normal (Normal); Ketones,Urine Negative (Negative); Leukocyte Esterase,Urine Negative (Negative); Nitrite,Urine Negative (Negative); PH,Urine 6.5 pH Units (5.0-8.0); Protein,Urine Negative (Neg-Trace); Urobilinogen,Urine Normal (Normal)
[2017-10-24 16:21] LABS: Bacteria,Urine None Seen per hpf (None-Few); Hyaline Casts,Urine None Seen per lpf (None-Few); RBC,Urine 0-3 per hpf (0-3); Squamous Epithelial Cell,Urine Moderate per lpf (None-Few)
[2017-10-24 16:23] LABS: Troponin I < 0.03 ng/mL (< 0.04)
[2017-10-24 16:24] LABS: Clarity,Urine Slightly Hazy (Clear)
--- NOTE | 2017-10-24 17:31 | Internal Med History&Physical ---
Date of Encounter: 10/24/17 Time of Encounter: 17:27 Internal Medicine - H&P: HPI Chief complaint: AMS Admitted From: Home Plans for Post Hospital Care: Home History of present illness: Ms. Mcdonald is a 87 year old female dementia, diabetes, hyperlipidemia, hypertension lives at home with family presenting to emergency room for altered mental status. Patient has dementia, and one episode of hallucination a few weeks back, but recently she become more confused, keep rolling her stockings, unable to find her way back to the room, she become less active. The family is concerned about something going on. She also has a stage II decubitus sacral decubitus . In the emergency room, she is afebrile vitals are stable, normal WBC potassium 3.4, calcium 17.8, urea in the chest x-ray negative. Patient is going to be admitted for metabolic encephalopathy, possible sundowning, hypercalcemia. discussed with family about code status, they wants to keep full code Past Med Surg Social Fam HX - Past Medical History Medical history: cancer, dementia, diabetes, hyperlipidemia, hypertension Psychiatric history: depression - Past Surgical History Surgical History: knee replacement, other - Social History Smoking Status: Never smoker Smokeless Tobacco Status: No Alcohol use: none Drug use: none - Family History Mother Living Status: Hx Family Cancer: Yes Father Living Status: Internal Medicine - H&P: Meds Aspirin Enteric Coated [Aspirin EC] 81 mg PO QAM 01/02/15 [History] Calcium Carbonate [Calcium] 500 mg PO BID 01/02/15 [History] Lovastatin 40 mg PO QPM 01/02/15 [History] Multivitamin [Multivitamins] 1 cap PO QAM 01/02/15 [History] [place]-3/Dha/Epa/Fish Oil [Cvs Fish Oil 1,000 mg Softgel] 1 cap PO BID 01/02/15 [ History] Oxybutynin Chloride [Ditropan Xl] 10 mg PO DAILY 09/17/17 [History] Memantine HCl [Memantine HCl] 5 mg PO DAILY 10/24/17 [History] Sertraline [Zoloft] 25 mg PO DAILY 10/24/17 [History] 3 Allergy/AdvReac Type Severity Reaction Status Date / Time Sulfa (Sulfonamide Allergy Unknown unknown Verified 07/19/17 10:23 Antibiotics) All Systems PM: A 10-system review of systems was performed and is negative for pertinent findings except as documented above in the HPI. reviewed with famlily - Constitutional Vitals: Temp Pulse Resp BP Pulse Ox 98.8 F 72 18 142/70 94 10/24/17 14:20 10/24/17 17:10 10/24/17 17:10 10/24/17 17:10 10/24/17 17:10 General appearance: Present: A&O X 1, pleasant Exam: CONSTITUTIONAL: Patient appears as an age appropriate female well developed, in no acute distress. EYES Clear sclerae, bilateral pupils are equal, reactive to light and accommodation. Extraocular movements are intact RESPIRATORY: No accessory muscle use, bilateral clear to auscultation, no wheezing, no crackles/rales. CARDIOVASCULAR: Regular heart rate, normal S1 and S2, no murmurs GASTROINTESTINAL: bowel sounds present, soft, no tenderness. No hepatosplenomegaly. No bilateral CVA tenderness MUSCULOSKELETAL: Joints in normal range of motion, no clubbing, no edema, no cyanosis. Bilateral peripheral pulses 2+ LYMPHATIC no lymphadenopathy in neck, groin and axilla bilaterally, no thyromegaly. NEUROLOGIC: CN II to XII are grossly intact, no focal neurological deficit. Deep tendon reflexes 2+ bilaterally. Normal light touch sensation to upper and lower extremity PSYCHIATRIC: Oriented x1, with good insight, mood is euthymic. No hallucinations or delusions. SKIN: Skin warm and dry, no rashes, open wound sacral decubitus, stage 2 Internal Med - H&P Results - Labs CBC & Chem 7: 10/24/17 14:30 10/24/17 14:30 - Assessment and plan (1) Altered mental status Current Visit: Yes Status: Acute Assessment and plan: Likely a combination of metabolic encephalopathy from hypercalcemia, and dementia sundowning close monitor Qualifiers: Altered mental status type: delirium Qualified Code(s): R41.0 - Disorientation, unspecified (2) Hypercalcemia Current Visit: Yes Status: Acute Assessment and plan: will give iVF and lasix, d/c calcium replacement (3) Dementia Current Visit: Yes Status: Chronic Assessment and plan: continue home meds Qualifiers: Dementia type: unspecified type Dementia behavioral disturbance: without behavioral disturbance Qualified Code(s): F03.90 - Unspecified dementia without behavioral disturbance (4) Diabetes mellitus Current Visit: Yes Status: Chronic Assessment and plan: add SSI Qualifiers: Diabetes mellitus type: type 2 Diabetes mellitus probate clerk insulin use: without probate clerk use Diabetes mellitus complication status: without complication Qualified Code(s): E11.9 - Type 2 diabetes mellitus without complications (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
[2017-10-24] MEDS ORDERED: Naloxone 0.4 MG/ML INJ IVP PRN (17:42)
[2017-10-24] MEDS ORDERED: Dextrose Gel 15 GM/37.5 ML TUBE PO PRN ×2 (17:45)
[2017-10-24] MEDS ORDERED: D5% in Water 1,000 ML IVC PRN (17:45)
[2017-10-24] MEDS ORDERED: *HR* Dextrose 50 % in Water (Syg) 50 ML SYRINGE IVP PRN (17:45)
[2017-10-24] MEDS: 0.9 % Sodium Chloride w KCl 20 MEQ/1,000 ML MLS IVC SCH (18:46)
[2017-10-24] MEDS: Furosemide 20 MG/2 ML VIAL IVP SCH (18:46)
[2017-10-24] MEDS: Insulin LISPRO 300 UNITS/3 ML VIAL SQ SCH (22:47)
[2017-10-25 05:41] LABS: Calcium 12.9 mg/dL (8.6-10.3); Magnesium 1.5 mg/dL (1.6-2.6)
[2017-10-25] MEDS: 0.9 % Sodium Chloride w KCl 20 MEQ/1,000 ML MLS IVC SCH (06:44)
[2017-10-25] MEDS: Insulin LISPRO 300 UNITS/3 ML VIAL SQ SCH ×4 (08:02→22:17)
[2017-10-25] MEDS: Furosemide 20 MG/2 ML VIAL IVP SCH (08:34)
[2017-10-25] MEDS: Aspirin Enteric Coated 81 MG Tablet PO SCH (10:50)
--- NOTE | 2017-10-25 15:12 | Internal Med Progress Note ---
Date of Encounter: 10/25/17 Time of Encounter: 15:30 - Assessment and plan (1) Altered mental status Current Visit: Yes Status: Acute Assessment and plan: family reports patient falling approximately 3 weeks ago with gradual decline in overall health and increased confusion since then. Head CT with temporal lobe atrophy, otherwise nonacute. UA not indicative of UTI. Suspect multifactorial with underlying dementia coupled with metabolic derangements. Cont treating underlying causes. Supportive care for now. Qualifiers: Altered mental status type: delirium Qualified Code(s): R41.0 - Disorientation, unspecified (2) Hypercalcemia Current Visit: Yes Status: Acute Assessment and plan: Ca 13.8 on admission. Cont IV fluids. Replace magnesium. 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 Treated with chemo and radiation. PET CT scan showed near complete resolution of left neck mass and no other areas of hypermetabolic disease. Surveillance CT 06/16/12 showed no evidence of residual or recurrent malignancy. Now with hypercalcemia concerning for disease recurrence. Oncology consulted (4) Dementia Current Visit: Yes Status: Chronic Assessment and plan: suspected. With increased/acute confusion as noted above however suspect patient likely has component of underlying dementia. Supportive care for now. Qualifiers: Dementia type: unspecified type Dementia behavioral disturbance: without behavioral disturbance Qualified Code(s): F03.90 - Unspecified dementia without behavioral disturbance (5) Diabetes mellitus Current Visit: Yes Status: Chronic Assessment and plan: per hx. Blood sugars controlled. Holding home oral hypoglycemics. SSI. Monitor blood sugar and titrate PRN Qualifiers: Diabetes mellitus type: type 2 Diabetes mellitus financial consultant insulin use: without financial consultant use Diabetes mellitus complication status: without complication Qualified Code(s): E11.9 - Type 2 diabetes mellitus without complications (6) Hypokalemia Current Visit: Yes Status: Acute Assessment and plan: K 3.0, Mg 1.5. Both replaced. Monitor repeat BMP (7) DVT prophylaxis Current Visit: No Status: Acute Assessment and plan: heparin (8) Hypokalemia Current Visit: No Status: Acute - Time Spent With Patient Total time spent is greater than 50% in coordination of care (as documented) at patient's floor/unit and/or counseling patient: - Subjective Interval history: Seen and examined at bedside. Patient is new to me, information obtained from mostly chart review and son at bedside as patient is alert to self only. Then tells me patient had a fall proximally 3 weeks ago and Tuesday steadily declined since then with increase decline over the past 3 days. Patient is more confused than baseline. Not able to care for herself as she used to. Patient is alert to self only. Unable to obtain review of system were obtained subjective information due to alteration in mental status. - Constitutional Vitals: Temp Pulse Resp BP Pulse Ox 97.5 F L 63 12 130/73 96 10/25/17 10:57 10/25/17 10:57 10/25/17 10:57 10/25/17 10:57 10/25/17 10:57 General appearance: Present: A&O X 1, pleasant - Head Head exam: Present: atraumatic, normocephalic - Eye Eye exam: Present: PERRL, conjuntiva pink, sclera anicteric Pupils: Present: PERRL - Neck Neck exam general surgery: Present: supple, trachea midline. Absent: lymphadenopathy - Respiratory Respiratory exam: Present: CTAB. Absent: accessory muscle use, rales, rhonchi, wheezes - Cardiovascular Cardiovascular exam: Present: RRR, +S1, +S2. Absent: diastolic murmur, gallop, rubs, systolic murmur - GI/Abdominal GI/Abdominal exam: Present: normal bowel sounds, soft, no peritoneal signs. Absent: distended, tenderness - Extremities Exam Extremities exam: Present: warm, radial pulses palpable and symmetrical. Absent : calf tenderness, cyanotic, pedal edema - Neurological Exam Neurological exam: Present: CN II-XII intact, no focal deficits. Absent: pronater drift, facial droop, speech deficit - Skin Skin exam: Present: dry, intact Internal Medicine: Result - Labs CBC & Chem 7: 10/24/17 14:30 10/25/17 04:47 - ABG Interpretation ABG results: PT/INR, D-dimer PT 13.5 Seconds (9.4-12.1) H 10/24/17 14:20 Consult Discharge Plan - Plan
[2017-10-25] MEDS: Potassium Chloride Elixir 20 MEQ/15 ML UDC PO SCH ×2 (16:03→22:36)
[2017-10-25] MEDS: 0.9 % Sodium Chloride 1,000 ML IVC SCH (16:03)
[2017-10-25] MEDS: Acetaminophen 325 MG TABLET PO PRN (16:03)
[2017-10-25] MEDS ORDERED: Vancomycin (wt based) 1,000 MG VIAL IVPB SCH (19:00)
[2017-10-25] MEDS: *HR* Heparin 5,000 UNIT/ML VIAL SQ SCH (22:21)
[2017-10-25] MEDS ORDERED: Potassium Chloride Elixir 20 MEQ/15 ML UDC PO SCH (22:30)
[2017-10-26] MEDS: *HR* Heparin 5,000 UNIT/ML VIAL SQ SCH ×3 (05:32→21:25)
--- NOTE | 2017-10-26 07:08 | Electrocardiograph Report ---
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
[2017-10-26 07:19] LABS: Hematocrit 30.8 % (35.3-44.9); Hemoglobin 10.2 g/dL (11.5-15.4); Mean Corpuscular HGB Conc 33.1 g/dL (31.6-35.5); Mean Corpuscular Hemoglobin 27.6 pg (28.0-33.3); Mean Corpuscular Volume 83.5 fL (83.0-100.0); Mean Platelet Volume 11.6 fL (9.4-12.4); Platelet Count 176 K/mcL (140-400); Red Blood Count 3.69 M/mcL (3.82-4.97); Red Cell Distribution Width 13.7 % (11.5-14.5)
[2017-10-26 07:42] LABS: Calcium 11.6 mg/dL (8.6-10.3); Potassium 3.4 mEq/L (3.5-5.1)
[2017-10-26] MEDS: Furosemide 20 MG/2 ML VIAL IVP SCH (07:45)
[2017-10-26] MEDS: Aspirin Enteric Coated 81 MG Tablet PO SCH (07:45)
[2017-10-26] MEDS: Insulin LISPRO 300 UNITS/3 ML VIAL SQ SCH ×4 (07:51→21:22)
[2017-10-26 08:07] LABS: Acinetobacter baumannii by PCR Not Detected (Not Detect); Candida albicans by PCR Not Detected (Not Detect); Candida glabrata by PCR Not Detected (Not Detect); Candida krusei by PCR Not Detected (Not Detect); Candida parapsilosis by PCR Not Detected (Not Detect); Candida tropicalis by PCR Not Detected (Not Detect); Enterococcus by PCR Not Detected (Not Detect); Escherichia coli by PCR Not Detected (Not Detect); Klebsiella oxytoca by PCR Not Detected (Not Detect); Klebsiella pneumoniae by PCR Not Detected (Not Detect); Pseudomonas aeruginosa by PCR Not Detected (Not Detect); Serratia marcescens by PCR Not Detected (Not Detect); Staphylococcus aureus by PCR Not Detected (Not Detect); Streptococcus agalactiae(B)PCR Not Detected (Not Detect); Streptococcus by PCR Not Detected (Not Detect); Streptococcus pneumoniae PCR Not Detected (Not Detect); Streptococcus pyogenes (A) PCR Not Detected (Not Detect); mecA Methicillin-Resist Gene ***DETECTED*** (Not Detect)
[2017-10-26] MEDS ORDERED: Aminoglycoside Consult 1 EACH MC ONE (09:12)
[2017-10-26] MEDS: Acetaminophen 325 MG TABLET PO PRN (12:01)
[2017-10-26] MEDS: 0.9 % Sodium Chloride 1,000 ML IVC SCH (12:15)
--- NOTE | 2017-10-26 13:16 | Oncology Inp Consult Note ---
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 Diagnosed in December 2011 s/p 3 cycles of R CHOP chemotherapy for stage I diffuse large B-cell lymphoma left neck and consolidative radiation therapy to involved field. Re-imaging in 2012 had shown no evidence of residual or recurrent malignancy. Patient now presents with hypercalcemia, decrease in performance status and new mass to right neck, suspicious for malignant process such as lymphoma or other new primary. Discussed the above with patient and patients family at bedside today. Options for diagnosis and treatment were discussed. Plan to proceed with CT imaging neck/chest/abdomen/pelvis likely followed by core needle biopsy right neck mass tomorrow. Dependant upon biopsy results further treatment options will be discussed following pathology review. (2) Hypercalcemia Status: Acute Assessment and plan: Calcium 11.6 today Improved from 13.8 on admission. PTH low. REGINALD- mild and not likely the cause of her hypercalcemia but more likely secondary to hypercalcemia Patient likely has some degree of dehydration on presentation which was contributing to her hypercalcemia but again not likely the entire cause. Continue IVF- Calcium slowly improving. Hypercalcemia suspicious for malignant etiology and may be secondary to recurrence of Diffuse Large B-Cell Lymphoma/new primary or other malignancy. LDH ordered for AM. More definitive diagnosis,prognosis and treatment options discussion following biopsy and imaging. (3) Altered mental status Status: Acute Assessment and plan: Patient has history of dementia/cognitive impairment. History somewhat unclear, according to record patient was on Aricept at her last oncology appointment. However, patients son who has recently taken over caring for patient state that she has not previously been on Aricept that he was aware of. Patients son states that her cognition has acutely worsened over the past few weeks with increased confusion and visual/auditory hallucinations, he recently took her to her PCP and they had started Aricept. Patient now somnolent, will make eye contact, occasionally state name/ and able to follow some commands at times. Patients family state this is quite a change for patient and that up until a few weeks ago patient was living completely independently. Head CT- Study somewhat limited by patient motion artifact. Within this limitation, no acute intracranial abnormality is appreciated. White matter changes and temporal lobe atrophy are re- demonstrated. UA negative. Likely multifactorial, may have underlying malignant component. May consider brain MRI pending other CT results. Please refer to Dr. Car's attestation below for additional details Qualifiers: Altered mental status type: delirium Qualified Code(s): R41.0 - Disorientation, unspecified - Data of Consult Patient: known to practice within the last 3 years Consult date: 10/26/17 Requesting Physician: Ziyad Coelho MD Primary Care Provider: Shante Gillette, - Consult Narrative Reason for consult: right neck mass, hypercalcemia History of present illness: Ms. Mcdonald is a 87 year old female with somewhat remote history of Diffuse Large B -Cell Lymphoma biopsy confirmed diagnosis in December 2011. She developed progressive dysphagia and dyspnea during her evaluation and had to start R-CHOP regimen prior to completing staging workup. Treatment summary and Imagin/17-03/28/12: 3 cycles of R CHOP chemotherapy for stage I diffuse large B-cell lymphoma left neck. 04/10-05/02/12: Consolidative radiation therapy to involved field by Dr. Gonsalez. PET CT scan 03/22/13 cycles of treatment showed near complete resolution of left neck mass and no other areas of hypermetabolic disease. Surveillance CT 06/16/12 showed no evidence of residual or recurrent malignancy. Patient presented to ER on 10/24/17 for increased confusion and generalized weakness. She was admitted with hypercalcemia 13.8, AMS and dementia. Family state that her performance status has declined over that past 3-4 months and acutely declined over weekend. She does have baseline cognitive impairment/ dementia and on Aricept. She lives alone with family next door, have been checking in on patient daily. Patient has been living independently and in good functional status until her recent decline. Patients family report decreased appetite and recent weight loss, unsure of exact amount. Over the past month she has reported progressive odynophagia and dysphagia. Past Med Surg Social Fam HX - Past Medical History Medical history: cancer, dementia, diabetes, hyperlipidemia, hypertension Additional medical history: hodgkins ca (removed), TIA, Psychiatric history: depression - Past Surgical History Surgical History: hysterectomy, knee replacement, other Additional surgical history: carpel tunnel - Social History Smoking Status: Never smoker Smokeless Tobacco Status: No Alcohol use: none Drug use: none - Family History Mother Living Status: Hx Family Cancer: Yes Father Living Status: Medications and Allergies Aspirin Enteric Coated [Aspirin EC] 81 mg PO QAM 01/02/15 [History] Calcium Carbonate [Calcium] 500 mg PO BID 01/02/15 [History] Lovastatin 40 mg PO QPM 01/02/15 [History] Multivitamin [Multivitamins] 1 cap PO QAM 01/02/15 [History] Oxybutynin Chloride [Ditropan Xl] 10 mg PO DAILY 09/17/17 [History] Memantine HCl 5 mg PO DAILY 10/24/17 [History] Haloperidol Oral Conc [Haldol] 2 mg SL Q6H #30 mls 10/28/17 [Rx] LORazepam Oral Conc [Ativan Oral Conc] 1 mg PO Q4H 7 Days #30 mls 10/28/17 [Rx] Morphine Oral CONC [Roxanol] 0.25 ml SL Q4H PRN 7 Days #30 ml 10/28/17 [Rx] OxyCODONE Immed Rel [Roxicodone 5 MG] 5 mg PO Q2H PRN 7 Days #30 tablet [Rx] Sennosides/Docusate Sodium [Senna Plus] 1 each PO BID #14 tablet 10/28/17 [Rx] 3 Allergy/AdvReac Type Severity Reaction Status Date / Time Sulfa (Sulfonamide Allergy Unknown unknown Verified 07/19/17 10:23 Antibiotics) Constitutional: Present: anorexia, fatigue, frequent falls, malaise, weakness, weight loss. Absent: chills, fever(s) Eyes: Absent: blurry vision, change in vision Nose, mouth and throat: Present: dysphagia, neck mass, neck pain, odynophagia Cardiovascular: Absent: chest pain Respiratory: Absent: cough, dyspnea Gastrointestinal: Absent: abdominal pain, nausea, vomiting Genitourinary: Absent: dysuria, hematuria Musculoskeletal: Present: as per HPI, muscle weakness Integumentary: Present: as per HPI Additional comments: pressure ulcer to coccyx Neurological: Present: behavioral changes, frequent falls. Absent: focal weakness Psychiatric: Present: auditory hallucinations, change in appetite, visual hallucinations Hematologic/Lymphatic: Present: as per HPI Oncology - Exam - Constitutional Vitals: Temp Pulse Resp BP Pulse Ox 97.5 F L 66 16 151/75 95 10/26/17 11:56 10/26/17 11:56 10/26/17 11:56 10/26/17 11:56 10/26/17 11:56 General appearance: cooperative, no acute distress, no febrile - ENT ENT exam: Present: mucous membranes moist - Respiratory Respiratory exam: Present: decreased breath sounds. Absent: respiratory distress - Cardiovascular Cardiovascular exam: Present: RRR, +S1, +S2 - GI/Abdominal GI/Abdominal exam: Present: normal bowel sounds, soft. Absent: tenderness - Extremities Exam Extremities exam: Present: normal inspection. Absent: calf tenderness - Neurological Exam Neurological exam: Present: no focal deficits Additional comments: Patient makes eye contact to verbal stimuli but does not answer questions, does not answer to michelle/ but does to other staff members at times, fatigued but easily awakens, follows some commands, - Psychiatric Psychiatric exam: Present: flat affect - Skin Skin exam: Present: dry, intact, normal color, warm Oncology - Results Labs: 3 10/26/17 10/26/17 10/26/17 05:31 05:31 05:31 WBC 7.3 RBC 3.69 L Hgb 10.2 L Hct 30.8 L MCV 83.5 MCH 27.6 L MCHC 33.1 RDW 13.7 Plt Count 176 MPV 11.6 Sodium 140 Potassium 3.4 L Chloride 100 Carbon Dioxide 34 H BUN 22 Creatinine 1.15 Est GFR ( Amer) 54 L Est GFR (Non-Af Amer) 45 L BUN/Creatinine Ratio 19 Glucose 103 POC Glucose Calculated Osmolality 294 Calcium 11.6 H Magnesium 2.0 3 10/25/17 10/25/17 10/25/17 21:54 15:58 11:08 WBC RBC Hgb Hct MCV MCH MCHC RDW Plt Count MPV Sodium Potassium Chloride Carbon Dioxide BUN Creatinine Est GFR ( Amer) Est GFR (Non-Af Amer) BUN/Creatinine Ratio Glucose POC Glucose 106 H 124 H 101 H Calculated Osmolality Calcium Magnesium Consult Discharge Plan - Plan Instructions: Hospice Care (GEN) Referrals: Shante Gillette MD [Primary Care Provider] - Prescriptions: Haloperidol Oral Conc [Haldol] 2 mg SL Q6H #30 mls LORazepam Oral Conc [Ativan Oral Conc] 1 mg PO Q4H 7 Days #30 mls Morphine Oral CONC [Roxanol] 0.25 ml SL Q4H PRN 7 Days #30 ml PRN Reason: sob or pain OxyCODONE Immed Rel [Roxicodone 5 MG] 5 mg PO Q2H PRN 7 Days #30 tablet PRN Reason: pain or sob Sennosides/Docusate Sodium [Senna Plus] 1 each PO BID #14 tablet <Akbar Car - Last Filed: 10/28/17 10:23> Date of Encounter: 10/26/17 - Data of Consult Requesting Physician: Ziyad Coelho MD Primary Care Provider: Shante Gillette, - Consult Narrative History of present illness: Ms. Mcdonald is a 87 year old female Oncology - Exam - Constitutional Vitals: Temp Pulse Resp BP Pulse Ox 98.2 F 68 17 145/79 95 10/28/17 06:33 10/28/17 06:33 10/28/17 06:33 10/28/17 06:33 10/28/17 06:33 Oncology - Results Labs: 3 10/28/17 10/28/17 10/27/17 04:00 04:00 21:33 WBC 7.0 RBC 3.74 L Hgb 10.6 L Hct 30.6 L MCV 81.8 L MCH 28.3 MCHC 34.6 RDW 13.5 Plt Count 164 MPV 10.2 Sodium 140 Potassium 3.0 L Chloride 102 Carbon Dioxide 28 BUN 20 Creatinine 0.89 Est GFR ( Amer) > 60 Est GFR (Non-Af Amer) > 60 BUN/Creatinine Ratio 22 Glucose 87 POC Glucose 151 H Calculated Osmolality 292 Calcium 10.8 H Magnesium Iron % Saturation Transferrin Ferritin Lactate Dehydrogenase 3 10/27/17 10/27/17 10/27/17 16:27 11:28 08:12 WBC RBC Hgb Hct MCV MCH MCHC RDW Plt Count MPV Sodium Potassium Chloride Carbon Dioxide BUN Creatinine Est GFR ( Amer) Est GFR (Non-Af Amer) BUN/Creatinine Ratio Glucose POC Glucose 103 H 97 88 Calculated Osmolality Calcium Magnesium Iron % Saturation Transferrin Ferritin Lactate Dehydrogenase 3 10/27/17 10/27/17 10/27/17 06:32 06:32 06:32 WBC RBC Hgb Hct MCV MCH MCHC RDW Plt Count MPV Sodium 142 Potassium 2.9 L Chloride 103 Carbon Dioxide 29 BUN 22 Creatinine 0.98 Est GFR ( Amer) > 60 Est GFR (Non-Af Amer) 54 L BUN/Creatinine Ratio 22 Glucose 85 POC Glucose Calculated Osmolality 297 Calcium 11.1 H Magnesium Iron 22 L % Saturation 8 L Transferrin 191 L Ferritin 238 H Lactate Dehydrogenase 206 3 10/27/17 10/26/17 10/26/17 06:32 20:47 17:18 WBC 7.4 RBC 3.75 L Hgb 10.8 L Hct 31.2 L MCV 83.2 MCH 28.8 MCHC 34.6 RDW 13.6 Plt Count 176 MPV 11.4 Sodium Potassium Chloride Carbon Dioxide BUN Creatinine Est GFR ( Amer) Est GFR (Non-Af Amer) BUN/Creatinine Ratio Glucose POC Glucose 105 H 102 H Calculated Osmolality Calcium Magnesium Iron % Saturation Transferrin Ferritin Lactate Dehydrogenase 3 10/26/17 10/26/17 10/26/17 11:56 07:47 05:31 WBC RBC Hgb Hct MCV MCH MCHC RDW Plt Count MPV Sodium Potassium Chloride Carbon Dioxide BUN Creatinine Est GFR ( Amer) Est GFR (Non-Af Amer) BUN/Creatinine Ratio Glucose POC Glucose 113 H 100 H Calculated Osmolality Calcium Magnesium 2.0 Iron % Saturation Transferrin Ferritin Lactate Dehydrogenase 3 10/26/17 10/26/17 10/25/17 05:31 05:31 21:54 WBC 7.3 RBC 3.69 L Hgb 10.2 L Hct 30.8 L MCV 83.5 MCH 27.6 L MCHC 33.1 RDW 13.7 Plt Count 176 MPV 11.6 Sodium 140 Potassium 3.4 L Chloride 100 Carbon Dioxide 34 H BUN 22 Creatinine 1.15 Est GFR ( Amer) 54 L Est GFR (Non-Af Amer) 45 L BUN/Creatinine Ratio 19 Glucose 103 POC Glucose 106 H Calculated Osmolality 294 Calcium 11.6 H Magnesium Iron % Saturation Transferrin Ferritin Lactate Dehydrogenase 3 10/25/17 10/25/17 15:58 11:08 WBC RBC Hgb Hct MCV MCH MCHC RDW Plt Count MPV Sodium Potassium Chloride Carbon Dioxide BUN Creatinine Est GFR ( Amer) Est GFR (Non-Af Amer) BUN/Creatinine Ratio Glucose POC Glucose 124 H 101 H Calculated Osmolality Calcium Magnesium Iron % Saturation Transferrin Ferritin Lactate Dehydrogenase - Attending Attestation Seen and examined the patient and agree with assessment and plan. The patient appears to have rapidly advancing relapsed lymphoma. We may be able to initiate palliative treatments with steroids and possibly single agent rituximab. The patient was functional and living on her own until just recently and I believe we could improve her quality of life. If we can get bx timely and the flow cytometry back by the end of the week, we could initiate appropriate treatment and see how she does. I did explain to the family that overall prognosis is not good but that palliative treatment options could improve her well being. They expressed understanding.
[2017-10-26] MEDS ORDERED: Isovue-370 500 ML INFUS..BTL IV ONE (13:19)
--- NOTE | 2017-10-26 14:06 | IR Consult Note ---
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 Was asked to perform biopsy Problems: 1. No imaging. Need imaging to have a target for biopsy. 2. No treatment plan. Due to her age and multiple issues is this patient going to be treated? 3. DNR status. Due to above I question the need for a biopsy. Consult date: 10/26/17 Physicians: Ziyad Coelho MD History of present illness: Patient with multiple co-morbidities. Has palpable neck lesion. Oncologist thought it can be related to lymphoma. Consult Comment: Thank you for the consult. Call [facility] with questions or concerns. Past Med Surg Social Fam HX - Past Medical History Medical history: cancer, dementia, diabetes, hyperlipidemia, hypertension Additional medical history: hodgkins ca (removed), TIA, Psychiatric history: depression - Past Surgical History Surgical History: hysterectomy, knee replacement, other Additional surgical history: carpel tunnel - Social History Smoking Status: Never smoker Smokeless Tobacco Status: No Alcohol use: none Drug use: none - Family History Mother Living Status: Hx Family Cancer: Yes Father Living Status: Medications and Allergies Aspirin Enteric Coated [Aspirin EC] 81 mg PO QAM 01/02/15 [History] Calcium Carbonate [Calcium] 500 mg PO BID 01/02/15 [History] Lovastatin 40 mg PO QPM 01/02/15 [History] Multivitamin [Multivitamins] 1 cap PO QAM 01/02/15 [History] [place]-3/Dha/Epa/Fish Oil [Cvs Fish Oil 1,000 mg Softgel] 1 cap PO BID 01/02/15 [ History] Oxybutynin Chloride [Ditropan Xl] 10 mg PO DAILY 09/17/17 [History] Memantine HCl [Memantine HCl] 5 mg PO DAILY 10/24/17 [History] Sertraline [Zoloft] 25 mg PO DAILY 10/24/17 [History] 3 Allergy/AdvReac Type Severity Reaction Status Date / Time Sulfa (Sulfonamide Allergy Unknown unknown Verified 07/19/17 10:23 Antibiotics) Exam Vital Signs, Last 4 Hours Temp Pulse Resp BP Pulse Ox 10/26/17 11:56 97.5 F L 66 16 151/75 95 Results Reviewed 10/26/17 05:31 10/26/17 05:31 Lab Results 10/26/17 10/26/17 10/26/17 05:31 05:31 05:31 WBC 7.3 RBC 3.69 L Hgb 10.2 L Hct 30.8 L MCV 83.5 MCH 27.6 L MCHC 33.1 RDW 13.7 Plt Count 176 MPV 11.6 Sodium 140 Potassium 3.4 L Chloride 100 Carbon Dioxide 34 H BUN 22 Creatinine 1.15 Est GFR ( Amer) 54 L Est GFR (Non-Af Amer) 45 L BUN/Creatinine Ratio 19 Glucose 103 Calcium 11.6 H Magnesium 2.0 Consult Discharge Plan - Plan Referrals: Shante Gillette MD [Primary Care Provider] -
[2017-10-26] MEDS ORDERED: *HR* OxyCODONE Immed Rel 5 MG TABLET PO ONE (15:19)
--- NOTE | 2017-10-26 15:42 | Internal Med Progress Note ---
Date of Encounter: 10/26/17 Time of Encounter: 15:39 - Assessment and plan (1) Altered mental status Current Visit: Yes Status: Acute Assessment and plan: family reports patient falling approximately 3 weeks ago with gradual decline in overall health and increased confusion since then. Head CT with temporal lobe atrophy, otherwise nonacute. UA not indicative of UTI. Suspect multifactorial with underlying dementia coupled with metabolic derangements and possible underlying malignancy. Cont treating underlying causes. Supportive care for now. Qualifiers: Altered mental status type: delirium Qualified Code(s): R41.0 - Disorientation, unspecified (2) Hypercalcemia Current Visit: Yes Status: Acute Assessment and plan: Ca 13.8 on admission. Cont IV fluids. Replace magnesium. Repeat Ca level slowly improving. Cont IV fluids. 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 Treated with chemo and radiation. PET CT scan showed near complete resolution of left neck mass and no other areas of hypermetabolic disease. Surveillance CT 06/16/12 showed no evidence of residual or recurrent malignancy. Now with new right neck mass and hypercalcemia concerning for disease recurrence. Plan for CT imaging neck/chest/abdomen/pelvis likely followed by core needle biopsy right neck mass 10/27/17. Oncology following (4) Dementia Current Visit: Yes Status: Chronic Assessment and plan: suspected. With increased/acute confusion as noted above however suspect patient likely has component of underlying dementia. Supportive care for now. Qualifiers: Dementia type: unspecified type Dementia behavioral disturbance: without behavioral disturbance Qualified Code(s): F03.90 - Unspecified dementia without behavioral disturbance (5) Diabetes mellitus Current Visit: Yes Status: Chronic Assessment and plan: per hx. Blood sugars controlled. Holding home oral hypoglycemics. SSI. 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 Radha alert to name only. She does not ride details. Does not answer questions at times. No family at bedside for collateral. Unable to obtain subjective information. - Constitutional Vitals: Temp Pulse Resp BP Pulse Ox 97.5 F L 66 16 151/75 95 10/26/17 11:56 10/26/17 11:56 10/26/17 11:56 10/26/17 11:56 10/26/17 11:56 General appearance: Present: A&O X 1, pleasant - Head Head exam: Present: atraumatic, normocephalic - Eye Eye exam: Present: PERRL, conjuntiva pink, sclera anicteric Pupils: Present: PERRL - Neck Neck exam general surgery: Present: supple, trachea midline. Absent: lymphadenopathy - Respiratory Respiratory exam: Present: CTAB. Absent: accessory muscle use, rales, rhonchi, wheezes - Cardiovascular Cardiovascular exam: Present: RRR, +S1, +S2. Absent: diastolic murmur, gallop, rubs, systolic murmur - GI/Abdominal GI/Abdominal exam: Present: normal bowel sounds, soft, no peritoneal signs. Absent: distended, tenderness - Extremities Exam Extremities exam: Present: warm, radial pulses palpable and symmetrical. Absent : calf tenderness, cyanotic, pedal edema - Neurological Exam Neurological exam: Present: CN II-XII intact, no focal deficits. Absent: pronater drift, facial droop, speech deficit - Skin Skin exam: Present: dry, intact Internal Medicine: Result - Labs CBC & Chem 7: 10/26/17 05:31 10/26/17 05:31 Labs: Short CBC 10/26/17 Range/Units 05:31 WBC 7.3 (4.3-11.1) K/mcL Hgb 10.2 L (11.5-15.4) g/dL Hct 30.8 L (35.3-44.9) % Plt Count 176 (140-400) K/mcL BMP 10/26/17 05:31 Sodium 140 Potassium 3.4 L Chloride 100 Carbon Dioxide 34 H BUN 22 Creatinine 1.15 Glucose 103 Calcium 11.6 H - ABG Interpretation ABG results: PT/INR, D-dimer PT 13.5 Seconds (9.4-12.1) H 10/24/17 14:20 Consult Discharge Plan - Plan Referrals: Shante Gillette MD [Primary Care Provider] -
[2017-10-27] MEDS: 0.9 % Sodium Chloride 1,000 ML IVC SCH ×3 (01:27→21:20)
[2017-10-27] MEDS: *HR* Heparin 5,000 UNIT/ML VIAL SQ SCH (05:07)
[2017-10-27 07:23] LABS: Hematocrit 31.2 % (35.3-44.9); Hemoglobin 10.8 g/dL (11.5-15.4); Mean Corpuscular HGB Conc 34.6 g/dL (31.6-35.5); Mean Corpuscular Hemoglobin 28.8 pg (28.0-33.3); Mean Corpuscular Volume 83.2 fL (83.0-100.0); Mean Platelet Volume 11.4 fL (9.4-12.4); Platelet Count 176 K/mcL (140-400); Red Blood Count 3.75 M/mcL (3.82-4.97); Red Cell Distribution Width 13.6 % (11.5-14.5)
[2017-10-27 07:34] LABS: % Iron Saturation 8 % (15-50); Ferritin 238 ng/ml (10-120); Iron 22 mcg/dL (50-170); Transferrin 191 mg/dL (203-362)
[2017-10-27 07:35] LABS: BUN/Creatinine Ratio 22 (6-26); Blood Urea Nitrogen 22 mg/dL (8-23); Calcium 11.1 mg/dL (8.6-10.3); Carbon Dioxide 29 mEq/L (23-29); Chloride 103 mEq/L (98-107); Glucose 85 mg/dL (70-105); Osmolality,Calculated 297 (280-300); Potassium 2.9 mEq/L (3.5-5.1); Sodium 142 mEq/L (136-145); eGFR For African Americans > 60 (> 60); eGFR For Non-African Americans 54 (> 60)
[2017-10-27] MEDS: Acetaminophen 325 MG TABLET PO PRN (09:13)
[2017-10-27] MEDS: Furosemide 20 MG/2 ML VIAL IVP SCH (09:14)
[2017-10-27] MEDS: Aspirin Enteric Coated 81 MG Tablet PO SCH (09:14)
--- NOTE | 2017-10-27 11:46 | IR Progress Note ---
Vital Signs: Vital Signs/O2 Sat, Most Current Temp Pulse Resp BP Pulse Ox 98.4 F 67 18 136/67 96 10/27/17 10:58 10/27/17 10:58 10/27/17 10:58 10/27/17 10:58 10/27/17 10:58 Recent Labs: Lab Results 10/27/17 10/27/17 10/26/17 06:32 06:32 05:31 WBC 7.4 RBC 3.75 L Hgb 10.8 L Hct 31.2 L MCV 83.2 MCH 28.8 MCHC 34.6 RDW 13.6 Plt Count 176 MPV 11.4 Sodium 142 Potassium 2.9 L Chloride 103 Carbon Dioxide 29 BUN 22 Creatinine 0.98 Est GFR ( Amer) > 60 Est GFR (Non-Af Amer) 54 L BUN/Creatinine Ratio 22 Glucose 85 Calcium 11.1 H Magnesium 2.0 10/26/17 10/26/17 05:31 05:31 WBC 7.3 RBC 3.69 L Hgb 10.2 L Hct 30.8 L MCV 83.5 MCH 27.6 L MCHC 33.1 RDW 13.7 Plt Count 176 MPV 11.6 Sodium 140 Potassium 3.4 L Chloride 100 Carbon Dioxide 34 H BUN 22 Creatinine 1.15 Est GFR ( Amer) 54 L Est GFR (Non-Af Amer) 45 L BUN/Creatinine Ratio 19 Glucose 103 Calcium 11.6 H Magnesium Assessment and Plan I reviewed pts imaging. There is an enhancing mass involving the right tounge base, with right cervical lymphadenopathy. Given the appearance of this, I'm concerned for possible primary tounge base malignancy with metastatic lymphadenopathy, though pt has a h/o lymphoma as well previously. I called pts son Dawood regarding consent for possible biopsy. Mentioned we could do a lymph node bx, which may tell us the LN's are related to the tounge base mass, or that they could be related to lymphoma. If it came back as lymphoma, I mentioned that a tounge base bx may be requested as well. I asked about her clinical/mental status, and plans for possible treatment. He seemed uncertain, but asked that we do nothing at this time, but he planned on coming to hospital today to see Polina. I mentioned that if he changes his mind and would be willing to give consent following conversations with her physicians caring for her as well as additional family members, to let us know.
[2017-10-27] MEDS: Insulin LISPRO 300 UNITS/3 ML VIAL SQ SCH ×4 (12:47→21:35)
[2017-10-27] MEDS ORDERED: Potassium Chloride 40 MEQ, Lidocaine 1% 2 ML in D5% in Water 500 ML IVPB ONE (13:30)
--- NOTE | 2017-10-27 13:35 | Internal Med Progress Note ---
Date of Encounter: 10/27/17 Time of Encounter: 13:35 - Assessment and plan (1) Altered mental status Current Visit: Yes Status: Acute Assessment and plan: with gradual decline in overall health and increased confusion for the last [address] with temporal lobe atrophy, otherwise nonacute. UA not indicative of UTI. Suspect multifactorial with underlying dementia coupled with metabolic derangements and possible underlying malignancy. Cont treating underlying causes. Supportive care for now. Qualifiers: Altered mental status type: delirium Qualified Code(s): R41.0 - Disorientation, unspecified (2) Hypercalcemia Current Visit: Yes Status: Acute Assessment and plan: Ca 13.8 on admission. Mg replaced. Repeat Ca level slowly improving. Cont IV fluids. 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 Treated with chemo and radiation. PET CT scan showed near complete resolution of left neck mass and no other areas of hypermetabolic disease. Surveillance CT 06/16/12 showed no evidence of residual or recurrent malignancy. Now with new right neck mass and hypercalcemia concerning for disease recurrence. Neck soft tissue CT showed base of tongue mass with right- sided cervical adenopathy. Plan was for right neck biopsy however per chart review IR spoke with son who has decided to hold on further diagnostic testing/ workup at this time. Oncology following. Consult palliative (4) Dementia Current Visit: Yes Status: Chronic Assessment and plan: suspected. With increased/acute confusion as noted above however suspect patient likely has component of underlying dementia. Supportive care for now. Qualifiers: Dementia type: unspecified type Dementia behavioral disturbance: without behavioral disturbance Qualified Code(s): F03.90 - Unspecified dementia without behavioral disturbance (5) Diabetes mellitus Current Visit: Yes Status: Chronic Assessment and plan: per hx. Blood sugars controlled. Holding home oral hypoglycemics. SSI. 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 K 2.9; IV replacement ordered (7) DVT prophylaxis Current Visit: No Status: Acute Assessment and plan: heparin - Time Spent With Patient Total time spent is greater than 50% in coordination of care (as documented) at patient's floor/unit and/or counseling patient: - Subjective Interval history: Seen and examined at bedside. Alert to self only. She does not verbally respond all the time. Often will just stare when questions asked to her. No family at bedside for collateral. Discussed with RN and uneventful night. - Constitutional Vitals: Temp Pulse Resp BP Pulse Ox 98.4 F 67 18 136/67 96 10/27/17 10:58 10/27/17 10:58 10/27/17 10:58 10/27/17 10:58 10/27/17 10:58 General appearance: Present: A&O X 1 - Head Head exam: Present: atraumatic, normocephalic - Eye Eye exam: Present: PERRL, conjuntiva pink, sclera anicteric Pupils: Present: PERRL - ENT Additional comments: right neck solid mass - Neck Neck exam general surgery: Present: supple, trachea midline. Absent: lymphadenopathy - Respiratory Respiratory exam: Present: CTAB. Absent: accessory muscle use, rales, rhonchi, wheezes - Cardiovascular Cardiovascular exam: Present: RRR, +S1, +S2. Absent: diastolic murmur, gallop, rubs, systolic murmur - GI/Abdominal GI/Abdominal exam: Present: normal bowel sounds, soft, no peritoneal signs. Absent: distended, tenderness - Extremities Exam Extremities exam: Present: warm, radial pulses palpable and symmetrical. Absent : calf tenderness, cyanotic, pedal edema - Neurological Exam Neurological exam: Present: CN II-XII intact, no focal deficits. Absent: pronater drift, facial droop, speech deficit - Skin Skin exam: Present: dry, intact Internal Medicine: Result - Labs CBC & Chem 7: 10/27/17 06:32 10/27/17 06:32 Labs: Short CBC 10/27/17 Range/Units 06:32 WBC 7.4 (4.3-11.1) K/mcL Hgb 10.8 L (11.5-15.4) g/dL Hct 31.2 L (35.3-44.9) % Plt Count 176 (140-400) K/mcL BMP 10/27/17 06:32 Sodium 142 Potassium 2.9 L Chloride 103 Carbon Dioxide 29 BUN 22 Creatinine 0.98 Glucose 85 Calcium 11.1 H - ABG Interpretation ABG results: PT/INR, D-dimer PT 13.5 Seconds (9.4-12.1) H 10/24/17 14:20 - Impressions Impressions Abdomen/Pelvis CT 10/26/17 00:00 IMPRESSION: 1. New bulky retroperitoneal adenopathy 2. No thoracic adenopathy D/ / Hudson Basilio MD / Hudson Basilio MD Interpreting Provider: Hudson Basilio MD Chest CT 10/26/17 00:00 IMPRESSION: 1. New bulky retroperitoneal adenopathy 2. No thoracic adenopathy D/ / Hudson Basilio MD / Hudson Basilio MD Interpreting Provider: Hudson Basilio MD Soft Tissue Neck CT 10/26/17 00:00 IMPRESSION: Base of tongue mass with right-sided cervical adenopathy. Incidentally noted thyroid nodule. RECOMMENDATIONS: Managing Incidental Thyroid Nodule Detected at CT or MRI or US 1. Further evaluation by thyroid Ultrasound recommended for these incidental nodules: Patient Age 18 years or less - Nodule of any size Patient Age 19-34 years old - Nodule 1 cm in size or greater Patient Age 35 years or more - Nodule 1.5 cm in size or greater 2. Follow up thyroid ultrasound also recommend in these scenarios - Solitary nodule with high risk imaging features (locally invasive nodule or suspicious lymph nodes) - Heterogeneous, enlarged thyroid gland. - Increased uptake on PET 3. NO further imaging is recommended in the following scenarios - Any nodule not meeting above criteria. - Those patients with limited life expectancy or significant Co-morbidities. Note: These recommendations do not apply to pts. w/ increased risk for thyroid cancer or pts. with symptomatic thyroid disease. Recommendations for f/u of Incidental Thyroid Nodules (ITN) found on CT, MR, NM and Extrathyroidal US are based upon the ACR white paper and Jacobs 3-tiered system for managing ITNs: J Am Wild Radiol. 2015 Jun;12(2): 143-50 D/ / Karel Dejesus MD / Karel Dejesus MD Interpreting Provider: Karel Dejesus MD Consult Discharge Plan - Plan Referrals: Shante Gillette MD [Primary Care Provider] -
--- NOTE | 2017-10-27 15:34 | Palliative - Consult Note ---
Date of Encounter: 10/27/17 Time of Encounter: 14:30 - Assessment and Plan (1) Altered mental status Current Visit: Yes Status: Acute Assessment and plan: Although the patient does have a history of dementia, I believe that the altered mental status is delirium and this is secondary to anabolic derangements not the least of which is probable underlying malignancy and hypercalcemia. This had a urinalysis that does not show UTI chest x-ray does not show a [place] and had CT scan showed only temporal lobe atrophy. At this point the calcium is down to 11.1 from a high of 13.8 however the patient's mental status is not improving. Qualifiers: Altered mental status type: delirium Qualified Code(s): R41.0 - Disorientation, unspecified (2) Goals of care, counseling/discussion Current Visit: Yes Status: Acute Assessment and plan: Discussion with the patient's family they have requested comfort care only at this time and they would like to be considered for hospice. I change the CODE STATUS from DNR CCA to DNR comfort care at the family's request. Goals of care family would like to stop all aggressive testing on the patient as they are not going to pursue treatment for this anyway. At family request I have contacted [facility] and asked them to send a nurse out for informational and probable sign up after we will discharge tomorrow. Family has indicated they do wish to do hospice, I believe the patient is hospice eligible based on the diagnosis of metabolic encephalopathy which in all likelihood is secondary to underlying cancer older is no biopsy evidence of this. No further aggressive care is requested. (3) Dementia Current Visit: Yes Status: Chronic Assessment and plan: Per family this has been a slow ongoing process, however I do not believe this is dementia believe this is acute delirium. 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 I also be part of the problem she is having with swallowing. (5) Hypercalcemia Current Visit: Yes Status: Acute Assessment and plan: Being treated by the hospitalist team with fluids (6) Sacral pain Current Visit: No Status: Acute Assessment and plan: Treatment per hospitalist team Palliative-CN HPI - Data of Consult Patient: new to practice Requesting Physician: Ziyad Coelho MD Primary Care Provider: Shante Gillette, - Consult Narrative Palliative Care/Comfort Measures: Palliative care Reason for consult: Questions about hospice care History of present illness: Ms. Mcdonald is a 87 year old female With a distant history of lymphoma which is clinically in remission. She does have a history of dementia diabetes hyperlipidemia and hypertension and for altered mental status. 6 months ago the patient was in her normal self aging gracefully as the family puts it. Over the last the patient's had markedly decreased mobility increasing ability to care for herself becoming almost total care just the last week. No longer feeding herself and having difficulty swallowing. She also has developed a stage II decubitus on her tailbone which she describes as being painful hurts" she is not verbal with me this is coming from the family. She is unable to quantify it does not radiate to the best of the family's knowledge it is worse when she is sitting on it better when she gets pressure off it. Increasing confusion got to such a point with decreasing appetite the family decided to bring her in on admission to the emergency department she was found to have a potassium of 3.4 calcium of 17.8 chest x-ray was negative however further imaging has shown a mass at the base of the tongue sided cervical adenopathy, bulky retroperitoneal adenopathy, but none in the mesentery this combined with the calcium being elevated is raised severe suspicion of recurrence of the diffuse B-cell lymphoma which the patient was in clinical remission from. Palliative care was consult regarding hospice eligibility the patient that the family does not wish to pursue a further aggressive testing or therapy. CC: Ziyad Coelho MD Altered mental status Past Med Surg Social Fam HX - Past Medical History Medical history: cancer, dementia, diabetes, hyperlipidemia, hypertension Additional medical history: hodgkins ca (removed), TIA, Psychiatric history: depression - Past Surgical History Surgical History: hysterectomy, knee replacement, other Additional surgical history: carpel tunnel - Social History Smoking Status: Never smoker Smokeless Tobacco Status: No Alcohol use: none Drug use: none - Family History Mother Living Status: Hx Family Cancer: Yes Father Living Status: Medications and Allergies Aspirin Enteric Coated [Aspirin EC] 81 mg PO QAM 01/02/15 [History] Calcium Carbonate [Calcium] 500 mg PO BID 01/02/15 [History] Lovastatin 40 mg PO QPM 01/02/15 [History] Multivitamin [Multivitamins] 1 cap PO QAM 01/02/15 [History] [place]-3/Dha/Epa/Fish Oil [Cvs Fish Oil 1,000 mg Softgel] 1 cap PO BID 01/02/15 [ History] Oxybutynin Chloride [Ditropan Xl] 10 mg PO DAILY 09/17/17 [History] Memantine HCl [Memantine HCl] 5 mg PO DAILY 10/24/17 [History] Sertraline [Zoloft] 25 mg PO DAILY 10/24/17 [History] 3 Allergy/AdvReac Type Severity Reaction Status Date / Time Sulfa (Sulfonamide Allergy Unknown unknown Verified 07/19/17 10:23 Antibiotics) ROS unobtainable: due to mental status Palliative Care-Exam - Constitutional Vitals: Temp Pulse Resp BP Pulse Ox 98.4 F 67 18 136/67 96 10/27/17 10:58 10/27/17 10:58 10/27/17 10:58 10/27/17 10:58 10/27/17 10:58 General appearance: Present: no acute distress. Absent: febrile - Head Head Exam: Present: atraumatic, normal inspection - Eye Eye exam: Present: normal appearance - Respiratory Respiratory exam: Present: CTAB - Cardiovascular Cardiovascular exam: Present: RRR - GI/Abdominal Exam GI/Abdominal exam: Present: normal bowel sounds, soft. Absent: tenderness - Extremities Exam Extremities exam: Present: normal inspection. Absent: pedal edema, tenderness - Neurological Exam Neurological exam: Present: altered. Absent: alert, oriented X3 (The patient is not responsive to me verbally, chest things earlier with the hospitalist she was oriented only to person.) - Psychiatric Psychiatric exam: Absent: agitated, anxious - Skin Skin exam: Present: dry, warm Internal Medicine - CN: Reslt - Labs CBC & Chem 7: 10/27/17 06:32 10/27/17 06:32 Labs: Short CBC 10/27/17 Range/Units 06:32 WBC 7.4 (4.3-11.1) K/mcL Hgb 10.8 L (11.5-15.4) g/dL Hct 31.2 L (35.3-44.9) % Plt Count 176 (140-400) K/mcL BMP 10/27/17 06:32 Sodium 142 Potassium 2.9 L Chloride 103 Carbon Dioxide 29 BUN 22 Creatinine 0.98 Glucose 85 Calcium 11.1 H - ABG Interpretation ABG results: PT/INR, D-dimer PT 13.5 Seconds (9.4-12.1) H 10/24/17 14:20 - Impressions Impressions Abdomen/Pelvis CT 10/26/17 00:00 IMPRESSION: 1. New bulky retroperitoneal adenopathy 2. No thoracic adenopathy D/ / Hudson Basilio MD / Hudson Basilio MD Interpreting Provider: Hudson Basilio MD Chest CT 10/26/17 00:00 IMPRESSION: 1. New bulky retroperitoneal adenopathy 2. No thoracic adenopathy D/ / Hudson Basilio MD / Hudson Basilio MD Interpreting Provider: Hudson Basilio MD Soft Tissue Neck CT 10/26/17 00:00 IMPRESSION: Base of tongue mass with right-sided cervical adenopathy. Incidentally noted thyroid nodule. RECOMMENDATIONS: Managing Incidental Thyroid Nodule Detected at CT or MRI or US 1. Further evaluation by thyroid Ultrasound recommended for these incidental nodules: Patient Age 18 years or less - Nodule of any size Patient Age 19-34 years old - Nodule 1 cm in size or greater Patient Age 35 years or more - Nodule 1.5 cm in size or greater 2. Follow up thyroid ultrasound also recommend in these scenarios - Solitary nodule with high risk imaging features (locally invasive nodule or suspicious lymph nodes) - Heterogeneous, enlarged thyroid gland. - Increased uptake on PET 3. NO further imaging is recommended in the following scenarios - Any nodule not meeting above criteria. - Those patients with limited life expectancy or significant Co-morbidities. Note: These recommendations do not apply to pts. w/ increased risk for thyroid cancer or pts. with symptomatic thyroid disease. Recommendations for f/u of Incidental Thyroid Nodules (ITN) found on CT, MR, NM and Extrathyroidal US are based upon the ACR white paper and Jacobs 3-tiered system for managing ITNs: J Am Wild Radiol. 2014;12(2): 143-50 D/ / Karel Dejesus MD / Karel Dejesus MD Interpreting Provider: Karel Dejesus MD Consult Discharge Plan - Plan Referrals: Shante Gillette MD [Primary Care Provider] - Palliative Quality Palliative Quality: Screen for Code Status: Yes, Screen for Goals of Care: Yes, Screen for Pain: Yes, If Pain Regimen Started, Initiate Bowel Regimen: Yes, Screen for Nausea/Vomitting: Yes Code Status: 10/25/17 16:02 DNR [Resuscitation Status: Active] [RES] Routine Comment: Resuscitation Status: [id number] DNR [Resuscitation Status: Active] [RES] Routine Resuscitation Status: DNR-Comfort Care Comment:
--- NOTE | 2017-10-27 17:20 | Oncology Inp Progress Note ---
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 Diagnosed in December 2011 s/p 3 cycles of R CHOP chemotherapy for stage I diffuse large B-cell lymphoma left neck and consolidative radiation therapy to involved field. Re-imaging in 2012 had shown no evidence of residual or recurrent malignancy. CT imaging of soft tissue neck/chest/abdomen/pelvis and hypercalcemia most likely consistent with recurrence of diffuse large B-cell lymphoma. Discussed with patient/patient's son at bedside today along with general history, management and prognosis. Patient is in very poor performance status (ECOG 3-4 presently), poor nutritional status and has been exhibiting recent changes in mental status/cognition, making her a poor candidate for further intervention or pursuit of treatment. Patients son has deferred need for biopsy at this time. Patient reports also discussing biopsy with Dr. Obregon via telephone and following their discussion patients son wishes to not pursue biopsy. The Hospice philosophy was discussed. Patients son amendable to further discussions with the palliative team and will likely plan to transition patient to hospice care soon. Hospitalist team updated on discussion and plan to consult Palliative Care Team. Appreciate the assistance of the hospitalist and palliative care team with future arrangements. Oncology will sign off at this time, should anything change or further questions arise please feel free to contact us. Oncology: Subj Interval history: Ms. Mcdonald is resting comfortably. Her son is at bedside. Patient reports pain is under control at this time. Occasionally answers questions, makes eye contact at times. - Constitutional Vitals: Vital Signs Temp Pulse Resp BP Pulse Ox 10/27/17 16:29 98.8 F 74 18 149/76 98 10/27/17 10:58 98.4 F 67 18 136/67 96 10/27/17 07:02 98.1 F 61 18 136/72 100 10/27/17 03:11 98.8 F 79 15 132/56 90 10/26/17 22:25 97.9 F 60 16 112/69 95 10/26/17 22:22 98.2 F 69 15 136/62 95 10/26/17 19:23 98 F 75 16 122/67 94 Intake and Output 10/27/17 10/27/17 10/27/17 07:59 15:59 23:59 Intake Total 1000 / 1000 Balance 1000 / 1000 Intake: IV Fluids 1000 / 1000 0.9 % Sodium Chloride 1,000 ML 1000 / 1000 @ 75 mls/hr IVC .[id number] MAXIMILIAN Rx #:[id number] Other: # Urine Diapers 1 1 Weight 54 kg Blood Glucose* 97 103 Patient Weight 10/27/17 23:59 Weight 54 kg General appearance: no acute distress, no febrile - ENT ENT exam: Present: mucous membranes moist - Respiratory Respiratory exam: Present: decreased breath sounds, CTAB. Absent: respiratory distress - Cardiovascular Cardiovascular exam: Present: RRR, +S1, +S2 - GI/Abdominal GI/Abdominal exam: Present: normal bowel sounds, soft. Absent: tenderness - Extremities Exam Extremities exam: Present: normal inspection. Absent: calf tenderness - Neurological Exam Neurological exam: Present: alert, no focal deficits, strengths equal and symetr throughout Additional comments: makes eye contact but not answering questions at this time, unable to assess orientation - Psychiatric Psychiatric exam: Present: flat affect - Skin Skin exam: Present: dry, normal color, warm Oncology: Obj Data - Labs CBC & Chem 7: 10/28/17 04:00 10/28/17 04:00 - Impressions Impressions Abdomen/Pelvis CT 10/26/17 00:00 IMPRESSION: 1. New bulky retroperitoneal adenopathy 2. No thoracic adenopathy D/ / Hudson Basilio MD / Hudson Basilio MD Interpreting Provider: Hudson Basilio MD Chest CT 10/26/17 00:00 IMPRESSION: 1. New bulky retroperitoneal adenopathy 2. No thoracic adenopathy D/ / Hudson Basilio MD / Hudson Basilio MD Interpreting Provider: Hudson Basilio MD Soft Tissue Neck CT 10/26/17 00:00 IMPRESSION: Base of tongue mass with right-sided cervical adenopathy. Incidentally noted thyroid nodule. RECOMMENDATIONS: Managing Incidental Thyroid Nodule Detected at CT or MRI or US 1. Further evaluation by thyroid Ultrasound recommended for these incidental nodules: Patient Age 18 years or less - Nodule of any size Patient Age 19-34 years old - Nodule 1 cm in size or greater Patient Age 35 years or more - Nodule 1.5 cm in size or greater 2. Follow up thyroid ultrasound also recommend in these scenarios - Solitary nodule with high risk imaging features (locally invasive nodule or suspicious lymph nodes) - Heterogeneous, enlarged thyroid gland. - Increased uptake on PET 3. NO further imaging is recommended in the following scenarios - Any nodule not meeting above criteria. - Those patients with limited life expectancy or significant Co-morbidities. Note: These recommendations do not apply to pts. w/ increased risk for thyroid cancer or pts. with symptomatic thyroid disease. Recommendations for f/u of Incidental Thyroid Nodules (ITN) found on CT, MR, NM and Extrathyroidal US are based upon the ACR white paper and Jacobs 3-tiered system for managing ITNs: J Am Wild Radiol. 2015 Jun;12(2): 143-50 D/ / Karel Dejesus MD / Karel Dejesus MD Interpreting Provider: Karel Dejesus MD - ABG Interpretation ABG results: PT/INR, D-dimer PT 13.5 Seconds (9.4-12.1) H 10/24/17 14:20 Consult Discharge Plan - Plan Instructions: Hospice Care (GEN) Referrals: Shante Gillette MD [Primary Care Provider] - Prescriptions: Haloperidol Oral Conc [Haldol] 2 mg SL Q6H #30 mls LORazepam Oral Conc [Ativan Oral Conc] 1 mg PO Q4H 7 Days #30 mls Morphine Oral CONC [Roxanol] 0.25 ml SL Q4H PRN 7 Days #30 ml PRN Reason: sob or pain OxyCODONE Immed Rel [Roxicodone 5 MG] 5 mg PO Q2H PRN 7 Days #30 tablet PRN Reason: pain or sob Sennosides/Docusate Sodium [Senna Plus] 1 each PO BID #14 tablet <Akbar Car - Last Filed: 11/07/17 08:49> Date of Encounter: 10/27/17 (1) 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 Earlier today, the son had a telephone conversation with the IR physician and was dissuaded from pursuing bx. Given her further worsening and likely potential HALL CLERK involvement, we will defer any consideration of palliative treatment given the lack of ability to obtain bx. Therefore, after discussing the situation further with the son, we agreed that hospice would be reasonable at this time. Qualifiers: Altered mental status type: delirium Qualified Code(s): R41.0 - Disorientation, unspecified Oncology: Obj Data - Labs CBC & Chem 7: 10/28/17 04:00 10/28/17 04:00 - ABG Interpretation ABG results: PT/INR, D-dimer PT 13.5 Seconds (9.4-12.1) H 10/24/17 14:20
[2017-10-28] MEDS: *HR* Heparin 5,000 UNIT/ML VIAL SQ SCH (05:35)
[2017-10-28 06:00] LABS: Hematocrit 30.6 % (35.3-44.9); Hemoglobin 10.6 g/dL (11.5-15.4); Mean Corpuscular HGB Conc 34.6 g/dL (31.6-35.5); Mean Corpuscular Hemoglobin 28.3 pg (28.0-33.3); Mean Corpuscular Volume 81.8 fL (83.0-100.0); Mean Platelet Volume 10.2 fL (9.4-12.4); Platelet Count 164 K/mcL (140-400); Red Blood Count 3.74 M/mcL (3.82-4.97); Red Cell Distribution Width 13.5 % (11.5-14.5)
[2017-10-28 06:21] LABS: BUN/Creatinine Ratio 22 (6-26); Blood Urea Nitrogen 20 mg/dL (8-23); Calcium 10.8 mg/dL (8.6-10.3); Carbon Dioxide 28 mEq/L (23-29); Chloride 102 mEq/L (98-107); Glucose 87 mg/dL (70-105); Osmolality,Calculated 292 (280-300); Sodium 140 mEq/L (136-145); eGFR For African Americans > 60 (> 60); eGFR For Non-African Americans > 60 (> 60)
[2017-10-28 06:34] VITALS: BP 145/79
--- NOTE | 2017-10-28 07:03 | Palliative Progress Note ---
Date of Encounter: 10/28/17 Time of Encounter: 07:15 - Assessment and plan (1) Altered mental status Current Visit: Yes Status: Acute Assessment and plan: Patient's mental status is better today than yesterday, cephalopathy may be clearing at least to some degree. Qualifiers: Altered mental status type: delirium Qualified Code(s): R41.0 - Disorientation, unspecified (2) Goals of care, counseling/discussion Current Visit: Yes Status: Acute Assessment and plan: She is comfort care per discussion yesterday. Goals of care patient be discharged today with [facility]. (3) Dementia Current Visit: Yes Status: Chronic Assessment and plan: Patient does have underlying dementia, however her acute delirium is causing her change in mental status at this time. I believe that the delirium is secondary to his in all likelihood a recurrence of her diffuse B-cell lymphoma the metabolic derangements thereof. 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 I believe that the lymphoma has recurred and is causing the terminal patient is going into hospice there will be no further workup there will be no biopsies at the request of the family. (5) Hypercalcemia Current Visit: Yes Status: Acute Assessment and plan: Calcium is still somewhat elevated at 10.8, however it is markedly better than it was. Patient's going into hospice at this time and will no longer be aggressively treated. Patient will be encouraged to keep up with good intake of by mouth fluids, however the hypercalcemia no longer be followed. (6) Sacral pain Current Visit: No Status: Acute Assessment and plan: Education's for pain are provided to the patient hospice will be looking after the area for seeing changes etc. - Time Spent With Patient Total time spent is greater than 50% in coordination of care (as documented) at patient's floor/unit and/or counseling patient: - Subjective Interval history: Patient has no complaint of this morning she is looking forward to going home. Specific nurse met with patient and family last night patient will be enrolled in hospice and discharged today. - Constitutional Vitals: Abnormal lab results RBC 3.74 M/mcL (3.82-4.97) L 10/28/17 04:00 Hgb 10.6 g/dL (11.5-15.4) L 10/28/17 04:00 Hct 30.6 % (35.3-44.9) L 10/28/17 04:00 MCV 81.8 fL (83.0-100.0) L 10/28/17 04:00 PT 13.5 Seconds (9.4-12.1) H 10/24/17 14:20 APTT 25.5 Seconds (26.0-36.0) L 10/24/17 14:20 Potassium 3.0 mEq/L (3.5-5.1) L 10/28/17 04:00 POC Glucose 151 mg/dL (70-99) H 10/27/17 21:33 Calcium 10.8 mg/dL (8.6-10.3) H 10/28/17 04:00 Iron 22 mcg/dL (50-170) L 10/27/17 06:32 % Saturation 8 % (15-50) L 10/27/17 06:32 Transferrin 191 mg/dL (203-362) L 10/27/17 06:32 Ferritin 238 ng/ml (10-120) H 10/27/17 06:32 Alkaline Phosphatase 10 Units/L (34-104) L 10/24/17 14:20 B-Natriuretic Peptide 325 pg/mL (Less than 100) H 10/25/17 04:47 Ur Squamous Epith Cells Moderate per lpf (None-Few) H 10/24/17 16:15 Staphylococcus sp PCR DETECTED (Not Detect) A 10/24/17 14:49 mecA-Methicil Res Gene DETECTED (Not Detect) A 10/24/17 14:49 - Head Head exam: Present: atraumatic, normal inspection - Eye Eye exam: Present: PERRL - ENT ENT exam: Present: mucous membranes moist - Respiratory Respiratory exam: Present: decreased breath sounds - Cardiovascular Cardiovascular exam: Present: RRR - GI/Abdominal GI/Abdominal exam: Present: normal bowel sounds, soft. Absent: tenderness - Extremities Exam Extremities exam: Absent: pedal edema, tenderness - Neurological Exam Neurological exam: Present: alert - Psychiatric Psychiatric exam: Absent: agitated, anxious - Skin Skin exam: Present: dry, warm Palliative Quality Palliative Quality: Screen for Code Status: Yes, Screen for Goals of Care: Yes, Screen for Pain: Yes, If Pain Regimen Started, Initiate Bowel Regimen: Yes, Screen for Nausea/Vomitting: Yes Code Status: 10/25/17 16:02 DNR [Resuscitation Status: Active] [RES] Routine Comment: Resuscitation Status: [id number] DNR [Resuscitation Status: Active] [RES] Routine Comment: Resuscitation Status: DNR-Comfort Care - Labs CBC & Chem 7: 10/28/17 04:00 10/28/17 04:00 Labs: Laboratory Results - last 24 hr 10/26/17 10/27/17 10/27/17 20:47 06:32 06:32 WBC 7.4 RBC 3.75 L Hgb 10.8 L Hct 31.2 L MCV 83.2 MCH 28.8 MCHC 34.6 RDW 13.6 Plt Count 176 MPV 11.4 Sodium 142 Potassium 2.9 L Chloride 103 Carbon Dioxide 29 BUN 22 Creatinine 0.98 Est GFR ( Amer) > 60 Est GFR (Non-Af Amer) 54 L BUN/Creatinine Ratio 22 Glucose 85 POC Glucose 105 H Calculated Osmolality 297 Calcium 11.1 H Iron % Saturation Transferrin Ferritin Lactate Dehydrogenase 10/27/17 10/27/17 10/27/17 06:32 06:32 08:12 WBC RBC Hgb Hct MCV MCH MCHC RDW Plt Count MPV Sodium Potassium Chloride Carbon Dioxide BUN Creatinine Est GFR ( Amer) Est GFR (Non-Af Amer) BUN/Creatinine Ratio Glucose POC Glucose 88 Calculated Osmolality Calcium Iron 22 L % Saturation 8 L Transferrin 191 L Ferritin 238 H Lactate Dehydrogenase 206 10/27/17 10/27/17 10/27/17 11:28 16:27 21:33 WBC RBC Hgb Hct MCV MCH MCHC RDW Plt Count MPV Sodium Potassium Chloride Carbon Dioxide BUN Creatinine Est GFR ( Amer) Est GFR (Non-Af Amer) BUN/Creatinine Ratio Glucose POC Glucose 97 103 H 151 H Calculated Osmolality Calcium Iron % Saturation Transferrin Ferritin Lactate Dehydrogenase 10/28/17 10/28/17 04:00 04:00 WBC 7.0 RBC 3.74 L Hgb 10.6 L Hct 30.6 L MCV 81.8 L MCH 28.3 MCHC 34.6 RDW 13.5 Plt Count 164 MPV 10.2 Sodium 140 Potassium 3.0 L Chloride 102 Carbon Dioxide 28 BUN 20 Creatinine 0.89 Est GFR ( Amer) > 60 Est GFR (Non-Af Amer) > 60 BUN/Creatinine Ratio 22 Glucose 87 POC Glucose Calculated Osmolality 292 Calcium 10.8 H Iron % Saturation Transferrin Ferritin Lactate Dehydrogenase - ABG Interpretation ABG results: PT/INR, D-dimer PT 13.5 Seconds (9.4-12.1) H 10/24/17 14:20 Consult Discharge Plan - Plan Referrals: Shante Gillette MD [Primary Care Provider] - Prescriptions: Haloperidol Oral Conc [Haldol] 2 mg SL Q6H #30 mls LORazepam Oral Conc [Ativan Oral Conc] 1 mg PO Q4H 7 Days #30 mls Morphine Oral CONC [Roxanol] 0.25 ml SL Q4H PRN 7 Days #30 ml PRN Reason: sob or pain OxyCODONE Immed Rel [Roxicodone 5 MG] 5 mg PO Q2H PRN 7 Days #30 tablet PRN Reason: pain or sob Sennosides/Docusate Sodium [Senna Plus] 1 each PO BID #14 tablet
--- NOTE | 2017-10-28 09:22 | Event Note ---
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 Start: 10/28/2017 Hospice benefit. In: +90 days Palliative performance scale: 30-40% History: Patient has probable B-cell lymphoma, there is not good to be any further workup of this and she wants no aggressive care. Patient has had documented hypercalcemia which she will be no further treatment the patient is also showing changes consistent with metabolic encephalopathy that may very well be secondary to the hypercalcemia in the B-cell lymphoma. In any case the patient has had a very large decline in the last 6 months and is now requiring since with almost all ADLs. Having difficulty swallowing and if the taking in normal calories. As the patient does not wish to have any further aggressive care, and a massive decline in her overall health as well as, needing more assistance with her ADLs she has ever had in the past, as well as now with difficulty swallowing I believe that These findings support a life expectancy of 6 months or less. I attest that I have compose the above narrative based on my review of the patient's medical records, and or on my examination of the patient. Jimmy Benson M.D. Associate medical center manager. [facility]
[2017-10-28] MEDS: Aspirin Enteric Coated 81 MG Tablet PO SCH (09:43)
[2017-10-28] MEDS: Furosemide 20 MG/2 ML VIAL IVP SCH (09:43)
[2017-10-28] MEDS: Insulin LISPRO 300 UNITS/3 ML VIAL SQ SCH (09:44)
[2017-10-28] MEDS ORDERED: Potassium Chloride Elixir 20 MEQ/15 ML UDC PO ONE (10:08)
--- NOTE | 2017-10-28 10:11 | Discharge Summary ---
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 Treated with chemo and radiation. PET CT scan showed near complete resolution of left neck mass and no other areas of hypermetabolic disease. Surveillance CT 06/16/12 showed no evidence of residual or recurrent malignancy. Now with new right neck mass and hypercalcemia concerning for disease recurrence. Neck soft tissue CT showed base of tongue mass with right- sided cervical adenopathy. Plan was for right neck biopsy however family decided not to pursue further workup or biopsies. Seen by palliative and after discussion with family CODE STATUS was changed to DNR-CC. Patient will be discharged home with hospice. (2) Altered mental status Priority: Primary Status: Acute Assessment and Plan: with gradual decline in overall health and increased confusion for the last [address] with temporal lobe atrophy, otherwise nonacute. UA not indicative of UTI. Suspect multifactorial with underlying dementia coupled with metabolic derangements and likely recurrence of malignancy. She will require 24 -hour care and plan to discharge home with hospice Qualifiers: Altered mental status type: delirium Qualified Code(s): R41.0 - Disorientation, unspecified (3) Hypercalcemia Priority: Primary Status: Acute Assessment and Plan: Ca 13.8 on admission. Mg replaced. Repeat Ca improved with IV fluids. (4) Dementia Priority: Primary Status: Chronic Assessment and Plan: suspected. With increased/acute confusion as noted above. Supportive care. Qualifiers: Dementia type: unspecified type Dementia behavioral disturbance: without behavioral disturbance Qualified Code(s): F03.90 - Unspecified dementia without behavioral disturbance (5) Hypokalemia Priority: Primary Status: Acute Assessment and Plan: replaced PRN. CODE STATUS changed to DNR CC and plan to discharge home with hospice. Will defer further laboratory testing to hospice. Hospital course: Please see assessment and plan for Hospital course Discharge discussed with: patient (Seen and examined at bedside. She is more awake and alert today however remains alert to self only. She has no complaints. Says she wants to go home. Discussed with Dr. Lara and plan is to discharge home with hospice which has already been arranged.) - Time Spent with Patient Total time spent providing and/or coordinating discharge services: - Discharge Medications Prescriptions: Haloperidol Oral Conc [Haldol] 2 mg SL Q6H #30 mls LORazepam Oral Conc [Ativan Oral Conc] 1 mg PO Q4H 7 Days #30 mls Morphine Oral CONC [Roxanol] 0.25 ml SL Q4H PRN 7 Days #30 ml PRN Reason: sob or pain OxyCODONE Immed Rel [Roxicodone 5 MG] 5 mg PO Q2H PRN 7 Days #30 tablet PRN Reason: pain or sob Sennosides/Docusate Sodium [Senna Plus] 1 each PO BID #14 tablet Home Medications: Aspirin Enteric Coated [Aspirin EC] 81 mg PO QAM 01/02/15 [History] Calcium Carbonate [Calcium] 500 mg PO BID 01/02/15 [History] Lovastatin 40 mg PO QPM 01/02/15 [History] Multivitamin [Multivitamins] 1 cap PO QAM 01/02/15 [History] Oxybutynin Chloride [Ditropan Xl] 10 mg PO DAILY 09/17/17 [History] Memantine HCl 5 mg PO DAILY 10/24/17 [History] Haloperidol Oral Conc [Haldol] 2 mg SL Q6H #30 mls 10/28/17 [Rx] LORazepam Oral Conc [Ativan Oral Conc] 1 mg PO Q4H 7 Days #30 mls 10/28/17 [Rx] Morphine Oral CONC [Roxanol] 0.25 ml SL Q4H PRN 7 Days #30 ml 10/28/17 [Rx] OxyCODONE Immed Rel [Roxicodone 5 MG] 5 mg PO Q2H PRN 7 Days #30 tablet [Rx] Sennosides/Docusate Sodium [Senna Plus] 1 each PO BID #14 tablet 10/28/17 [Rx] Allergies/Adverse Reactions: 3 Allergy/AdvReac Type Severity Reaction Status Date / Time Sulfa (Sulfonamide Allergy Unknown unknown Verified 07/19/17 10:23 Antibiotics) Date of admission: 10/25/17 11:00 Primary care physician: Shante Gillette, Consults: 10/25/17 15:28 Consult to Oncology [CONS] Routine Consulting Provider: Oncology [facility] Reason for Consult: hx lymphoma now with hypercalcemia Call Completed: Yes 10/26/17 12:47 Consult to Interventional Radiology [CONS] Routine Consulting Provider: Radiology Interventional Cols Reason for Consult: core needle biopsy right neck mass Call Completed: Yes Discharging clinician: Jenny Gill Anticipated date of discharge: 10/28/17 - Constitutional Vitals: Temp Pulse Resp BP Pulse Ox 98.2 F 68 17 145/79 95 10/28/17 06:33 10/28/17 06:33 10/28/17 06:33 10/28/17 06:33 10/28/17 06:33 General appearance: Present: A&O X 1 - Head Head exam: Present: atraumatic, normocephalic - Eye Eye exam: Present: PERRL, conjuntiva pink, sclera anicteric Pupils: Present: PERRL - Neck Neck exam general surgery: Present: supple, trachea midline. Absent: lymphadenopathy - Respiratory Respiratory exam: Present: CTAB. Absent: accessory muscle use, rales, rhonchi, wheezes - Cardiovascular Cardiovascular exam: Present: RRR, +S1, +S2. Absent: diastolic murmur, gallop, rubs, systolic murmur - GI/Abdominal GI/Abdominal exam: Present: normal bowel sounds, soft, no peritoneal signs. Absent: distended, tenderness - Extremities Exam Extremities exam: Present: warm, radial pulses palpable and symmetrical. Absent : calf tenderness, cyanotic, pedal edema - Neurological Exam Neurological exam: Present: CN II-XII intact, no focal deficits. Absent: pronater drift, facial droop, speech deficit - Skin Skin exam: Present: dry, intact - Patient Status Disposition: Hospice - Home Condition: Fair Functional capacity at discharge: wheelchair bound Overall status at discharge: patient is not back to baseline - Discharge Instructions Instructions: Hospice Care (GEN) Follow Up With: Shante Gillette MD [Primary Care Provider] - Forms: ED Satisfaction Letter - Diet and Activity Activity: increase activity as tolerated Diet: regular diet
[2017-10-28] MEDS: 0.9 % Sodium Chloride 1,000 ML IVC SCH (10:14)
--- NOTE | 2017-10-28 10:19 | Physician Discharge Referral ---
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 For more information, call the [place] Tobacco Quit Line at 2-700-YUTL-NOW. - Diet/Nutrition Diet/Nutrition Orders: Regular - Activity Activity Orders: Chair - Services Needed Following services are medically necessary services: Nursing, Home Health Aide - Transfer Medications Prescriptions: Haloperidol Oral Conc [Haldol] 2 mg SL Q6H #30 mls LORazepam Oral Conc [Ativan Oral Conc] 1 mg PO Q4H 7 Days #30 mls Morphine Oral CONC [Roxanol] 0.25 ml SL Q4H PRN 7 Days #30 ml PRN Reason: sob or pain OxyCODONE Immed Rel [Roxicodone 5 MG] 5 mg PO Q2H PRN 7 Days #30 tablet PRN Reason: pain or sob Sennosides/Docusate Sodium [Senna Plus] 1 each PO BID #14 tablet Home Medications: Aspirin Enteric Coated [Aspirin EC] 81 mg PO QAM 01/02/15 [History] Calcium Carbonate [Calcium] 500 mg PO BID 01/02/15 [History] Lovastatin 40 mg PO QPM 01/02/15 [History] Multivitamin [Multivitamins] 1 cap PO QAM 01/02/15 [History] Oxybutynin Chloride [Ditropan Xl] 10 mg PO DAILY 09/17/17 [History] Memantine HCl 5 mg PO DAILY 10/24/17 [History] Haloperidol Oral Conc [Haldol] 2 mg SL Q6H #30 mls 10/28/17 [Rx] LORazepam Oral Conc [Ativan Oral Conc] 1 mg PO Q4H 7 Days #30 mls 10/28/17 [Rx] Morphine Oral CONC [Roxanol] 0.25 ml SL Q4H PRN 7 Days #30 ml 10/28/17 [Rx] OxyCODONE Immed Rel [Roxicodone 5 MG] 5 mg PO Q2H PRN 7 Days #30 tablet [Rx] Sennosides/Docusate Sodium [Senna Plus] 1 each PO BID #14 tablet 10/28/17 [Rx] Allergies/Adverse Reactions: 3 Allergy/AdvReac Type Severity Reaction Status Date / Time Sulfa (Sulfonamide Allergy Unknown unknown Verified 07/19/17 10:23 Antibiotics) Certification: Further, I certify that my clinical findings support that this patient is homebound (i.e. absences from home require considerable and taxing effort and are for medical reasons or scientology services or infrequently or short duration when for other reasons) because: Homebound Reason: Leaving home requires considerable and taxing effort due to condition Attestation: My signature below is to certify that this patient is under my care and that I, or nurse practitioner, or a physician's blood donor unit assistant working with me, has a face-to -face encounter with this patient.
== END 2017-10-28 13:43 | disposition hospice, home (50) | DRG 840 ==
LOC: EMEROO 14:19 → 3BNU 14:19
PROVIDERS: ADMIT Hospitalist; ATTEND Hospitalist